=== PATIENT | male | born 1960 | race American Indian/Alaskan Native ===

== ENCOUNTER 2025-03-15 19:33 | Inpatient (IN) | payer MEDICAID, SELFPAY ==
[2025-03-15 19:33] VITALS: BP 181/115; PULSE 62; RESP 25; TEMP 37.1; O2SAT 93
--- NOTE | 2025-03-15 19:36 | EKG_ITS ---
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: : 1960 Requested By: Alex Zhu Order Number: [id number] Reading MD: Alex Zhu Measurements Intervals [place] Rate: 63 P: MS: QRS: 25 QRSD: 87 T: 4 QT: 420 QTc: 431 Interpretive Statements UNCERTAIN IRREGULAR RHYTHM ELECTRONIC VENTRICULAR PACEMAKER -- CONTOUR ANALYSIS BASED ON INTRINSIC RHYTHM POSSIBLE RIGHT VENTRICULAR CONDUCTION DELAY [RSR (QR) IN V1/V2] ANTEROSEPTAL MYOCARDIAL INFARCTION , OF INDETERMINATE AGE [40+ ms Q WAVE IN V1-V4] Compared to ECG 01/23/2021 11:46:02 Myocardial infarct finding now present Atrial fibrillation no longer present T-wave abnormality no longer present Prolonged QT interval no longer present /store/S0/[id number].pdf
--- NOTE | 2025-03-15 19:39 | XR_ITS ---
EXAMINATION: AP chest single view TECHNIQUE: AP portable upright chest single view Date and time: March 15, 2025, 194 hours, comparison January 23, 2021 INDICATIONS: Shortness of breath today. FINDINGS: Mild to moderate CHF Moderate enlargement cardiac contour Prominent vascular congestion including central vascular engorgement with perihilar edema Transvenous dual-chamber bipolar cardiac leads satisfactory position Moderate osteopenia IMPRESSION: Mild to moderate CHF
[2025-03-15 20:03] LABS: Lactate (Lactic Acid) 3.0 mMol/L (0.4-2.0)
[2025-03-15 20:29] LABS: Basophils # (Auto) 0.0 Thou/mm3 (0.0-0.2); Basophils % (Auto) 1 % (0-2.5); Eosinophils # (Auto) 0.1 Thou/mm3 (0.0-0.5); Eosinophils % (Auto) 1 % (0-10); Hematocrit 33.6 % (41.0-53.0); Hemoglobin 11.3 g/dL (13.5-16.0); Immature Granulocytes Auto 0.02 Thou/mm3 (0.00-0.00); Lymphocytes # (Auto) 1.2 Thou/mm3 (1.0-4.8); Lymphocytes % (Auto) 18 % (10-50); Mean Corpuscular HGB Conc 33.6 g/dl (31.0-37.0); Mean Corpuscular Hemoglobin 31.7 pg (25.0-35.0); Mean Corpuscular Volume 94 fL (80-100); Monocytes # (Auto) 0.9 Thou/mm3 (0.0-0.8); Monocytes % (Auto) 14 % (0-12); Neutrophils # (Auto) 4.2 Thou/mm3 (1.8-7.7); Neutrophils % (Auto) 66 % (37-80); Nucleated Red Blood Cell # 0.00 Thou/mm3 (0.00-0.00); Nucleated Red Blood Cell % 0 /100 WBC (0); Platelet Count 173 Thou/mm3 (140-440); RDW Standard Deviation 46.4 fL (35.1-43.9); Red Blood Count 3.56 Miln/mm3 (4.50-5.90); White Blood Count 6.5 Thou/mm3 (3.8-10.6)
[2025-03-15 20:34] LABS: Anion Gap 11 (7-16); B-Type Natriuretic Peptide 569 pg/mL (0-100); BUN/Creatinine Ratio 9 Ratio (12-20); Blood Urea Nitrogen 10 mg/dL (9-23); Calcium 9.2 mg/dL (8.3-10.6); Carbon Dioxide 20.7 mMol/L (20.0-31.0); Chloride 92 mMol/L (98-107); Creatinine (Component) 1.1 mg/dL (0.6-1.3); Glucose 101 mg/dL (74-106); Lipase 29 U/L (12-53); Osmolality,Calculated 248 (275-295); Potassium 4.6 mMol/L (3.4-5.1); Sodium 124 mMol/L (136-145); eGFR > 60 See Note
[2025-03-15 20:39] LABS: Troponin I 0.079 ng/mL (0.0-0.045)
[2025-03-15] MEDS: ALBUTEROL/IPRATROPIUM (Duoneb) RT SOL 3 ML NEBU INH (20:51)
[2025-03-15 20:52] VITALS: PULSE 61; PULSE 64; RESP 20; RESP 24; RESP 95; O2SAT 100
[2025-03-15 21:23] VITALS: BP 156/76; PULSE 68
[2025-03-15] MEDS: FUROSEMIDE INJ 10 MG/ML VIAL 2 ML 40 MG IM (21:23)
[2025-03-15 21:26] LABS: Collection Type, Urine Clean Catch
[2025-03-15 21:31] LABS: Bacteria,Urine 2+; Bilirubin,Urine Negative (Negative); Blood,Urine 1+ (Negative); Clarity,Urine Turbid (Clear/Hazy); Color,Urine Lt-Yellow (Lt Yel-Yel); Glucose, Urine Negative (Negative); Hyaline Casts,Urine < 1 /hpf (0-1); Ketones,Urine Negative (Negative); Leukocyte Esterase,Urine Positive (Negative); Nitrite,Urine Negative (Negative); PH,Urine 6.0 (5.0-7.0); Protein,Urine 2+ (Neg - Trace); RBC,Urine 6 /hpf (0-3); Specific Gravity,Urine 1.011 (1.001-1.035); Squamous Epithelial Cell,Urine 1 /hpf (0-5); Urobilinogen,Urine Negative mg/dL (0.0-1.0); WBC,Urine 118 /hpf (0-5)
[2025-03-15 23:01] LABS: Reflex Lactate? Y
--- NOTE | 2025-03-15 23:16 | EDNOTE_ITS ---
ED SOB =RME/HPI General Chief Complaint: Shortness of Breath/Dyspnea Stated Complaint: SHORTNESS OF BREATH Time Seen by Provider: 03/15/25 19:34 Source: patient, EMS and prescription eyeglass maker Arrival date/time: 03/15/25 19:33 Mode of arrival: EMS Limitations: language barrier RME / HPI RME / HPI Narrative: This patient is a morbidly obese 64-year-old male who is only minimal [place] speaking arrives to the ED today via EMS due to complaints of bilateral lower extremity swelling and shortness of breath concerns. Per EMS, patient has a history of CHF. Additional information was difficult to assess due to language barriers. It appears the patient may not be medication compliant with respect to his CHF concerns. Patient was hypertensive and mildly tachypneic at arrival. Patient was satting at 93% on room air. Related Data Allergies Allergy/AdvReac Type Severity Reaction Status Date / Time No Known Drug Allergies Allergy Verified 01/23/21 10:49 Review of Systems Review of Systems Systems Reviewed: All systems reviewed, normal except as documented Past Medical History Past Medical History NEUROLOGIC: Negative Neurological Disorders CARDIAC: Positive Cardiac Disorders, Atrial Fibrillation, Congestive Heart Failure, Cellulitis and Hypertension RESPIRATORY: Negative Chronic Obstructive Pulmonary Disease (COPD) or Asthma GASTROINTESTINAL: Negative Gastrointestinal Disorders or Colorectal Cancer GENITOURINARY: Negative Genitourinary Disorders, Renal Disease or Prostate Cancer REPRODUCTIVE: Negative Breast Cancer or Testicular Cancer MUSCULOSKELETAL: Negative Musculoskeletal Disorders, Bone Cancer or Carpal Tunnel Syndrome ENT: Negative Cataracts ENDOCRINE: Positive Endocrine Disorders and Diabetes Mellitus Type 2; Negative Diabetes Mellitus Type 1 HEMATOLOGIC: Negative Blood Disorders PSYCHO/SOCIAL: Negative Depression or Anxiety OTHER HISTORY: Negative Autoimmune Disease, Blood Transfusions, Blood Transfusion Reaction, Anesthesia Reactions, Organ Transplant, Chemotherapy, Radiation Therapy, Hyperbaric Therapy, Breast Cancer, Cervical Cancer, Colorectal Cancer, Lung Cancer, Ovarian Cancer, Prostate Cancer or Testicular Cancer Surgical History SURGICAL: Negative Cardiac Surgery, Endocrine Surgery, Thyroidectomy, Ear Surgery, Tympanostomy Tube, Eye Surgery, Nose Surgery, Oral Surgery, Tonsillectomy, Adenoidectomy, Cochlear Implant, Corneal Transplant, Throat Surgery, Abdominal Surgery, Tracheostomy, Nephrectomy, Joint Replacement, Amputation, Open Reduction Internal Fixation, Arthroscopy, Neurologic Surgery, Brain Shunt, Vasectomy or Organ Transplant Social History SMOKING STATUS: Never smoker SECOND HAND EXPOSURE: Yes ED Exam General Limitations: Present language barrier General appearance: Present in distress (Patient was admitted to monitor status due to shortness of breath concerns. Patient appears to be in poor overall health.) Head Head exam: Present atraumatic Eye Eye exam: Present PERRL, EOMI and other (Patient reveals mild proptosis bilaterally.) ENT ENT exam: Present normal exam, normal oropharynx and mucous membranes moist Neck Neck exam: Present normal inspection, full ROM and trachea midline Chest Chest inspection: Present normal inspection and symmetric chest wall rise Respiratory Respiratory exam: Present other (Patient displayed some mild respiratory distress at time of evaluation. Mild accessory muscle use.) Cardiovascular Cardiovascular exam: Present regular rate, normal rhythm and normal heart sounds Abdominal Exam Abdominal exam: Present soft and normal bowel sounds Extremities Exam Extremities exam: Present normal inspection and full ROM Back Exam Back exam: Present normal inspection and full ROM Neurological Exam Neurological exam: Present alert, oriented X3 and CN II-XII intact Psychiatric Psychiatric exam: Present normal affect and normal mood Skin Skin exam: Present warm, dry, intact and normal color Course Quality Measures none Orders Category Date Time Status COVID-19 Screening Questionnaire NOW Care 03/15/25 23:32 Ordered Decision to Admit X1 Care 03/15/25 23:32 Ordered Fluid restriction QDAY Care 03/15/25 23:29 Active Vincent [Urinary Catheter] QS Care 03/15/25 23:30 Active IV [Insert IV] NOW Care 03/15/25 19:36 Active Strict Intake and Output Routine Care 03/15/25 23:30 Ordered EKG (ED Only) Stat Exams 03/15/25 19:36 Draft XR chest 1V portable Stat Exams 03/15/25 19:39 Completed BMP [Basic Metabolic Panel] Stat Lab 03/15/25 19:56 Completed BNP [B-Type Natriuretic Peptide] Stat Lab 03/15/25 19:56 Completed Blood Culture (Lab) Stat Lab 03/15/25 22:22 Received CBC Stat Lab 03/15/25 19:56 Completed COVID-19 Antigen (In-House) Stat Lab 03/15/25 23:26 Ordered Drug Screen,Urine Stat Lab 03/15/25 23:27 Ordered FLU A&B [Influenza A & B Rapid Panel] Stat Lab 03/15/25 23:26 Ordered Lactate (Lactic Acid) Stat Lab 03/15/25 19:56 Completed Lactic Acid, 3 HR Stat Lab 03/15/25 23:21 Completed Lipase Stat Lab 03/15/25 19:56 Completed Troponin I Stat Lab 03/15/25 19:56 Completed UA [Urinalysis] Stat Lab 03/15/25 21:20 Completed Albuterol/Ipratr Rt Fatou [Duoneb Rt Fatou] Med 03/15/25 19:35 Discontinued 3 ml INH X1 ONE Furosemide [Lasix Inj] Med 03/15/25 20:17 Discontinued 40 mg IM X1 ONE Sodium Chloride 0.9% 1000 ml [Ns] 1,000 ml Med 03/15/25 20:17 Discontinued IV 150 mls/hr cefTRIAXone/D5w 1gm IV premix [Rocephin/D5w 1gm IV Med 03/15/25 21:37 Discontinued premix] 1 gm in 50 ml IV X1 dexAMETHasone INJ [Decadron Inj] Med 03/15/25 19:35 Discontinued 10 mg IM X1 ONE levoFLOXacin/D5W 750MG IVPB [Levaquin Ivpb] Med 03/15/25 21:36 Discontinued 750 mg in 150 ml IV X1 As noted above Reevaluation(s) Reevaluation #1: Dr. Guillen Time: 22:00 Vital Signs Vital signs: Vital Signs Temperature 98.8 F 03/15/25 19:33 Pulse Rate 62 03/15/25 19:33 Respiratory Rate 25 H 03/15/25 19:33 Blood Pressure 181/115 H 03/15/25 19:33 Pulse Oximetry (%) 93 L 03/15/25 19:33 As noted above Shortness of Breath / Dyspnea MDM Narrative MDM Narrative:: All studies performed the ED were evaluated by me personally. Serum studies revealed an elevated lactic acid, anemia, hyponatremia, significant CHF exacerbation as well as trending upward of elevated troponins. UTI was significant. Antibiotics had been started in the ED. Chest x-ray revealed significant cardiomegaly and confirmation of congestive heart failure concerns. Patient care be transferred to Dr. Ontiveros for discussions with hospitalist once available. Patient data External records reviewed:: [facility] previous records Clinical information provided by:: patient and EMS Social determinants that could affect healthcare access:: none Patient has the following chronic illnesses:: Congestive heart failure How is presenting disease/condition affected by chronic disease/condition?: caused by Evaluation data The following diagnostics were reviewed and interpreted by me:: lab results, radiology exam(s) and EKG tracing(s) Lab and/or radiology exams considered but not ordered:: None Interpretation Summary: Just serum laboratories revealed an elevated lactic acid, anemia, significant urinary tract infection concerns, hyponatremia, acute CHF exacerbation as well as elevated troponins. Chest x-ray revealed confirmation of a congestive heart failure issue. Medications / Prescriptions Medications or Prescriptions considered but not ordered:: None Medication administrations:: Medication Administration History Discontinued Medications Albuterol/Ipratropium (Albuterol/Ipratropium (Duoneb) Rt Fatou 3 Ml Nebu) 3 ml INH X1 ONE Stop: 03/15/25 19:36 Last Admin: 03/15/25 20:51 Dose: 3 ml Documented By: [email or web address] Dexamethasone Sodium Phosphate (Dexamethasone Sod Phos Inj 10 Mg/Ml Vial) 10 mg IM X1 ONE Stop: 03/15/25 19:36 Last Admin: 03/15/25 19:48 Dose: 10 mg Documented By: CVL Furosemide (Furosemide Inj 10 Mg/Ml Vial 2 Ml) 40 mg IM X1 ONE Stop: 03/15/25 20:18 Last Admin: 03/15/25 21:23 Dose: 40 mg Documented By: EB Comments: admin IV per provider ordered wrong give IV now 20g right hand Sodium Chloride (Ns) 1,000 mls @ 150 mls/hr IV .Q6H40M ONE Stop: 03/16/25 02:56 Last Admin: 03/15/25 21:02 Dose: 150 mls/hr Documented By: EB Ceftriaxone Sodium/Dextrose (Rocephin/D5w 1gm Iv Premix) 1 gm in 50 mls @ 100 mls/hr IV X1 ONE Stop: 03/15/25 22:06 Levofloxacin/Dextrose (Levaquin Ivpb) 750 mg in 150 mls @ 100 mls/hr IV X1 ONE Stop: 03/15/25 23:05 As noted above Consultations Consultation(s) initiated? (list below): Yes Consultation #1 (Physician, Specialty, Details): Dr. Guillen Time: 22:00 Diagnosis Shortness of Breath Differential Diagnosis: acute exacerbation of chronic obstructive airways disease, congestive heart failure and community acquired pneumonia Most likely diagnosis given after review of the tests above:: Acute CHF exacerbation make sure he has follow-up, urosepsis Admission Indicated Admission indicated?: indicated Explain why admission is indicated or not indicated:: Patient will require admission to address his significant CHF concerns as well as management of his significant urinary tract issues. Admission Request Was there a request for admission?: Yes Admission Attestation Admission request attestation: Discussed case with [] from Hospitalist service regarding admission. Discussed patients ED course, exam findings, labs, and radiology results. The Hospitalist [agrees,declines] to accept the patient for admission. Disposition Plan Disposition Plan: Admit Discharge Plan Plan Patient Disposition: Admit Acute Care w/in Hospital Prescriptions/Referrals Referrals: No Primary/Family,Physician [Primary Care Provider] - In 1 week Problem List Clinical Impression: Acute exacerbation of CHF (congestive heart failure), Acute UTI, Acute hyponatremia, Elevated troponin Patient/Caregiver Discharge Instructions Print Language: [place]alese Stand Alone Forms: Angélica Award Info., Patient Portal Info Letter Attestation Attestation I took over the care from previous provider at _11PM_ on _03/15/25_.? See previous notes for complete H & P and ED course.?? I reviewed all diagnostic test results. I discussed the case with our hospitalist.? About the presentation and exam and diagnostics and treatments here.? And need of further care in the hospital.? Will accept the patient. Nehemiah Ontiveros MD
[2025-03-15 23:21] LABS: Lactic Acid, 3 HR 1.9 mMol/L (0.4-2.0)
[2025-03-15] MEDS: THIAMINE INJ 100 MG/ML VIAL 2 ML 500 MG IVP (23:48)
[2025-03-15 23:49] LABS: Amphetamine/Methamp Scrn,U Negative (Negative); Barbiturate Screen,Urine Negative (Negative); Benzodiazepines Screen,Urine Negative (Negative); Benzoylecgonine Screen, Ur Negative (Negative); Fentanyl Screen,Urine Negative (Negative); Opiate Screen,Urine Negative (Negative); THC Screen,Urine Negative (Negative)
[2025-03-15 23:54] LABS: COVID-19 Antigen (In-House) Negative (Negative); Influenza A Ag Negative; Influenza B Ag Negative
[2025-03-15] MEDS: cefTRIAXone/D5w 1gm IV premix 1 GM/50 ML BAG IV (23:54)
[2025-03-16] VITALS (23 sets, daily range): BP systolic 121–172; BP diastolic 58–91; PULSE 60–90; RESP 12–28; TEMP 35.9–37.2; O2SAT 92–100; BMI 42.0
--- NOTE | 2025-03-16 00:18 | ECHO_ITS ---
Patient Info Name: Sarmad Perales Age: 64 years : 1960 Gender: Male Ht: 165 cm Wt: 189 kg BSA: 3.08 m2 BP: 121 / 58 mmHg Exam Date: 03/16/2025 2:39 PM Admit Date: 03/15/2025 Site: [facility] Patient Status: I Technical Quality: Poor Exam Type: CA echo doppler complete Reason for Poor Study: body habitus Telephone Messenger: Ashley Gonzalez Ordering Physician: Isaias Ceja Study Info Indications Heart failure - Primary Location: [id number] Left Ventricular Outflow Tract Name Value Normal LVOT 2D LVOT Diameter 2.0 cm LVOT Doppler LVOT Peak Velocity 76 cm/s LVOT Mean Gradient 1 mmHg LVOT VTI 14 cm LVOT VTI/AV VTI Ratio 0.6 LVOT Stroke Volume 45 ml Pulmonic Valve Name Value Normal PV Doppler PV Peak Velocity 98 cm/s Mitral Valve Name Value Normal MV Doppler MV Mean Gradient 2 mmHg MV Decel [place] 477 cm/s2 MV PHT 38 ms MV Area (PHT) 5.8 cm2 4.0-5.0 MV Area (Cont Eq VTI) 1.4 cm2 MV Diastolic Function MV E Peak Velocity 62 cm/s MV A Peak Velocity 34 cm/s MV E/A 1.8 MV Annular TDI MV Lateral e' Velocity 7.9 cm/s MV E/e' (Lateral) 7.8 Tricuspid Valve Name Value Normal TV Regurgitation Doppler TR Peak Velocity 246 cm/s Estimated PAP/RSVP RA Pressure 8 mmHg <=5 PA Systolic Pressure 32 mmHg <36 RV Systolic Pressure 32 mmHg <36 Aortic Valve Name Value Normal AV 2D/MM AV Cusp Sep (MM) 1.7 cm AV Doppler AV Peak Velocity 142 cm/s AV Mean Gradient 3 mmHg AV VTI 25 cm AV Area (Cont Eq VTI) 1.8 cm2 >=3.0 AV Area (Cont Eq Yon) 1.7 cm2 AV DI (Yon) 0.54 AV Regurgitation 2D LVOT Area 3.1 cm2 Ventricles Name Value Normal LV Dimensions 2D/MM IVS Diastolic Thickness (2D) 1.0 cm 0.6-1.0 LVID Diastole (2D) 5.9 cm 4.2-5.8 LVIW Diastolic Thickness (2D) 1.0 cm 0.6-1.0 LVID Systole (2D) 4.3 cm 2.5-4.0 LVOT Diameter 2.0 cm LV Mass (2D Cubed) 239.93 g 88.00-224.00 LV Mass Index (2D Cubed) 78 g/m2 49-115 Relative Wall Thickness (2D) 0.34 <=0.42 IVS/LVIW Diastolic Thickness (2D) 1.00 0.00-1.50 LV Fractional Shortening/Ejection Fraction 2D/MM LV Fractional Shortening (2D) 27 % 25-43 LV EF (2D Teichholz) 52 % LV Diastolic Volume (4C MOD) 170 ml LV EF (4C MOD) 25 % LV Diastolic Length (4C) 8.4 cm LV Systolic Length (4C) 8.1 cm LV Stroke Volume (4C MOD) 42 ml Atria Name Value Normal LA Dimensions LA Volume (4C A-L) 207 ml LA Volume (BP A-L) 180 ml Left Ventricle Left ventricular chamber dimension is mildly enlarged. Left ventricular systolic function is mildly reduced with visually estimated ejection fraction of 45-50%. There is normal geometry noted in the left ventricle. Left ventricular segmental wall motion is normal. There is normal diastolic function in the left ventricle. Right Ventricle Right ventricular chamber dimension is mildly enlarged. Right ventricular systolic function is normal. Left Atrium Left atrial chamber dimension is severely enlarged. Right Atrium Right atrial chamber dimension is severely enlarged. Aortic Valve The aortic valve is trileaflet. There is mild aortic valve sclerosis. There is no aortic valve stenosis with a peak velocity of 142 cm/s, mean gradient of 3 mmHg, and aortic valve area of 1.8 cm2. There is no aortic valve regurgitation. Pulmonic Valve The pulmonic valve is normal. There is no pulmonic valve stenosis. There is no pulmonic regurgitation. Mitral Valve The mitral valve has normal leaflets. There is no mitral valve stenosis. There is mild mitral valve regurgitation. Tricuspid Valve The tricuspid valve leaflets are normal. There is no tricuspid valve stenosis. There is mild tricuspid valve regurgitation. No pulmonary hypertension, estimated pulmonary arterial systolic pressure is 32 mmHg and systemic blood pressure of 121 mmHg in systole. Pericardium/Pleural The pericardium appears normal. There is no pericardial effusion. No pleural effusion visualized. Inferior Vena Cava Normal inferior vena cava with >50% collapse upon inspiration consistent with normal right atrial pressure, 8 mmHg. Aorta The aortic measurements are indexed to age and body surface area. The aortic root at the sinus of Valsalva is not well visualized. The prox ascending aorta is not well visualized. Summary 1. Overall poor quality images and suboptimal study. 2. Left ventricle size is mildly enlarged and systolic function is mildly reduced. Estimated ejection fraction is 45-50%. There is stage 1 diastolic dysfunction. 3. Right ventricle chamber size is mildly enlarged and systolic function is normal. Estimated RVSP is 32 mmHg with RAP 8. 4. There is mild mitral and tricuspid valve regurgitation. Mild AV sclerosis without stenosis. 5. The left atrium is severely enlarged. The right atrium is severely enlarged. 6. Dilated cardiomyopathy. Report Signatures Finalized by Silver Abad on 03/17/2025 01:09 AM
--- NOTE | 2025-03-16 00:20 | ESHP_ITS ---
<Statement entered by Isaias Ceja MD - 03/18/25 19:42> Patient is poor historian. Talked to the niece recreation activities coordinator and got some information from her. A 64-year-old male with significant past medical history of hypertension, hyperlipidemia, atrial fibrillation on anticoagulation, chronic alcohol disorder, third-degree AV block status post pacemaker placement in [facility], history of stroke at that time. Per niece, patient called her reporting that he is not able to get out of the bed since 2 days which she went to his home and called ambulance and brought him to the hospital. Reported that he is having pedal edema since the discharge from [facility]. Does not follow-up with any roll on worker. Unsure if he is compliant with his medications. Vitals at the time of admission are significant for blood pressure 181/115 mmHg. Later in the ED, patient noted to have coffee-ground emesis for which CPAP was held and stopped anticoagulation. Labs are significant for sodium 124, chloride 92, osmolality 248, lactate 3, troponin 0.079. EKG showed paced rhythm. Patient is given dexamethasone, Lasix in the ED. On examining, patient noted to have confabulation for which 500 mg of thiamine IV is given in view of suspected Wernicke's encephalopathy in the light of extensive alcohol intake disorder. Admitted to the floors in view of acute decompensated heart failure, NSTEMI type II, upper GI bleed likely due to gastritis. Echocardiogram was ordered and consulted roll on worker. Started on IV diuretics. Strict I&O's, salt and fluid restriction. I have personally seen and examined the patient, agree with residents assessment and plan Patient plan of care was discussed with the attending physician, Dr. Mindy Ceja, PGY2 Documentation for date of: 03/16/25 HPI History of Present Illness History of present illness: HPI: 64-year-old male with a past medical history of hypertension, hyperlipidemia, A- fib, 3rd degree block status post pacemaker placement at [facility] presented to the ED in the evening of 03/15/2025 with chief complaint of shortness of breath and weakness. Patient is a poor historian. He mentioned that he had difficulty walking for 3 months duration. He mentioned that he was unable to come to the hospital for this issue due to not having a ride. He experienced 2 falls within the past few days and today he called his niece who drove him to the hospital. The patient mentioned that he takes several different medications for 4 hypertension but could not name any of them. He mentioned that he ran out of his medications and has not taken them for several days to weeks. He has not seen a roll on worker or primary care provider recently. He was found to have bilateral lower extremity pitting edema and mild to moderate CHF indicated on chest x-ray with elevated BNP. He was also found to have elevated troponins and EKG was negative for any acute ST segment changes. Patient had 1 episode of brown-colored emesis in the ED. Patient was admitted for CHF exacerbation, NSTEMI type II, and possible GI bleed. ED Course: * Significant vitals on arrival: BP 181/115, respiratory rate 25. * Significant labs: Sodium 124, chloride 92, calculated osmolality 248, lactic acid 3.0 down trended to 1.9, troponin 0.079, BNP 569 * Imaging: EKG showed electronic ventricular pacemaker with no acute ST segment changes, rate 63, QTc 431 * Urine: 2+ protein, 1+ blood, 6 RBC, 1.18 WBC, 2+ bacteria, leukocyte esterase positive * ED intervention: Patient received 10 mg dexamethasone, DuoNeb treatment, 40 mg IM Lasix, 500 mg thiamine,1 g of ceftriaxone, and levofloxacin 750 mg. History: * Past medical history: As above in HPI * Surgical history: Left shoulder unspecified surgery * Social history: Lives in a usp, denies alcohol tobacco or illicit drugs. Allergies: * No known drug allergies Home Medications: (Pending Med Rec) * Furosemide 40 mg daily * Spironolactone 25 mg half tablet daily * Amlodipine 10 mg daily * Apixaban 5 mg daily * Atorvastatin 80 mg daily CODE STATUS: Full code Review of Systems Review of Systems Narrative Review of Systems: Review of Systems: * General: Admits to generalized weakness, difficulty ambulating. * HEENT: Denies headache, congestion, or sore throat. * Cardiac: Denies chest pain or palpitations. * Pulmonary: Admits to shortness of breath. * GI: Denies nausea, vomiting, diarrhea, constipation, melena, or hematochezia. * : Denies dysuria, hematuria, frequency, or urgency. * MSK: Denies pain in the extremities, joints, or myalgias. * Neuro: Denies weakness, numbness, vision changes, or speech difficulty. Exam Vital Signs Temp Pulse Resp BP Pulse Ox O2 Del Method 97.6 F 90 22 H 160/80 H 94 L Room Air 03/16/25 00:00 03/16/25 00:00 03/16/25 00:00 03/16/25 00:00 03/16/25 00:00 03/16/25 00:00 Narrative Exam General: Obese man. Awake and in no acute distress. Conversational and non- toxic appearing. Neurologic: GCS 15. Alert and oriented x3, no gross neurological deficit, and patient able to move all 4 extremities. HEENT: Normocephalic, atraumatic, mucous membranes moist. Pupils reactive to light. Heart: Regular rate and rhythm, normal S1 and S2, no murmurs. Lungs: Clear to auscultation bilaterally with no wheezing or crackles. Abdomen: Obese, distended, nontender, positive bowel sounds. No guarding or rebound tenderness. Extremities: Bilateral lower extremity 2+ pitting edema. Flaking skin in the lower extremities bilaterally. Vitiligo at the fingertips bilaterally. Skin: Warm. Dry. No rash or ecchymoses. Results: Labs 03/18/25 05:35 03/18/25 05:35 Labs: Short CBC 03/15/25 Range/Units 19:56 WBC 6.5 (3.8-10.6) Thou/mm3 Hgb 11.3 L (13.5-16.0) g/dL Hct 33.6 L (41.0-53.0) % Plt Count 173 (140-440) Thou/mm3 BMP 03/15/25 19:56 Sodium 124 L Potassium 4.6 Chloride 92 L Carbon Dioxide 20.7 BUN 10 Creatinine 1.1 Glucose 101 Calcium 9.2 Cardiac Enzymes 03/15/25 Range/Units 19:56 Troponin I 0.079 H* (0.0-0.045) ng/mL Urine 03/15/25 Range/Units 21:20 Urine Color Lt-Yellow (Lt Yel-Yel) Urine Clarity Turbid A (Clear/Hazy) Urine pH 6.0 (5.0-7.0) Ur Specific [place] 1.011 (1.001-1.035) Urine Protein 2+ A (Neg - Trace) Urine Glucose (UA) Negative (Negative) Quality Measures Quality Measures VTE prophylaxis Medications Home Medications and Allergies Home Medications ?Medication ?Instructions ?Recorded ?Confirmed ?Type apixaban 5 mg tablet (Eliquis) 5 mg PO QDAY 03/16/25 1 05/17/24 History atorvastatin 80 mg tablet 80 mg PO QDAY 03/16/2503/16 History furosemide 40 mg tablet 40 mg PO QDAY 03/16/2503/16 History spironolactone 25 mg tablet 12.5 mg PO QDAY 03/16/25 1 05/17/24 History Allergies Allergy/AdvReac Type Severity Reaction Status Date / Time No Known Drug Allergies Allergy Verified 01/23/21 10:49 Visit Medications Acetaminophen (Acetaminophen 325 Mg Tablet) 650 mg PO Q6H PRN PRN Reason: Fever >100.4 Stop: 04/14/25 23:45 Aspirin (Aspirin Ec 81 Mg Tabec) 81 mg PO DAILY [facility] Stop: 04/15/25 08:59 Enoxaparin Sodium (Enoxaparin Sod Inj 40 Mg/0.4 Ml Syringe) 40 mg SC QDAY [facility] Stop: 03/30/25 08:59 Furosemide (Furosemide Inj 10 Mg/Ml Vial 2 Ml) 40 mg IVP BID [facility] Stop: 04/15/25 08:59 Ceftriaxone Sodium/Dextrose (Rocephin/D5w 1gm Iv Premix) 1 gm in 50 mls @ 100 mls/hr IV QDAY [facility] Stop: 03/22/25 23:45 Spironolactone (Spironolactone 25 Mg Tablet) 25 mg PO QDAY [facility] Stop: 04/15/25 08:59 Thiamine HCl (Thiamine 100 Mg Tablet) 100 mg PO QDAY [facility] Stop: 04/15/25 08:59 Discontinued Medications Albuterol/Ipratropium (Albuterol/Ipratropium (Duoneb) Rt Fatou 3 Ml Nebu) 3 ml INH X1 ONE Stop: 03/15/25 19:36 Last Admin: 03/15/25 20:51 Dose: 3 ml Dexamethasone Sodium Phosphate (Dexamethasone Sod Phos Inj 10 Mg/Ml Vial) 10 mg IM X1 ONE Stop: 03/15/25 19:36 Last Admin: 03/15/25 19:48 Dose: 10 mg Furosemide (Furosemide Inj 10 Mg/Ml Vial 2 Ml) 40 mg IM X1 ONE Stop: 03/15/25 20:18 Last Admin: 03/15/25 21:23 Dose: 40 mg Sodium Chloride (Ns) 1,000 mls @ 150 mls/hr IV .[id number] ONE Stop: 03/16/25 02:56 Last Admin: 03/15/25 21:02 Dose: 150 mls/hr Ceftriaxone Sodium/Dextrose (Rocephin/D5w 1gm Iv Premix) 1 gm in 50 mls @ 100 mls/hr IV X1 ONE Stop: 03/15/25 22:06 Levofloxacin/Dextrose (Levaquin Ivpb) 750 mg in 150 mls @ 100 mls/hr IV X1 ONE Stop: 03/15/25 23:05 Last Admin: 03/16/25 00:00 Dose: Not Given Ceftriaxone Sodium/Dextrose (Rocephin/D5w 1gm Iv Premix) 1 gm in 50 mls @ 100 mls/hr IV X1 ONE Stop: 03/16/25 00:14 Last Admin: 03/15/25 23:54 Dose: 100 mls/hr Thiamine HCl (Thiamine Inj 100 Mg/Ml Vial 2 Ml) 500 mg IVP X1 ONE Stop: 03/15/25 23:41 Last Admin: 03/15/25 23:48 Dose: 500 mg Assessment & Plan Plan Summary: 64-year-old male with a past medical history of hypertension, hyperlipidemia, A- fib status post pacemaker placement at [facility] presented to the ED in the evening of 03/15/2025 with chief complaint of shortness of breath and weakness. Patient is a poor historian. He was found to have bilateral lower extremity pitting edema and mild to moderate CHF indicated on chest x-ray with elevated BNP. He was also found to have elevated troponins and EKG was negative for any acute ST segment changes. Patient had 1 episode of brown-colored emesis in the ED. Patient was admitted for new onset CHF, NSTEMI type II, and possible upper GI bleed. #New onset CHF #Elevated BNP #Hyponatremia #Hypochloremia * Fluid overload is supported on physical exam findings of bilateral lower extremity pitting edema and lab findings of hyponatremia (124) and hypochloremia (92) * This is further supported by the fact the patient mentioned that he has not taken his medications recently due to running out of them * BNP 569 * Chest x-ray showed mild to moderate CHF * Patient has orthopnea on physical exam * Echo on 10/01/2020 showed EF 55% Plan: * Lasix 40 mg IV twice daily * Spironolactone 25 mg daily * Fluid restriction 1500 mL * Strict I's&O's * Oxygen support as needed * CPAP at bedtime * Echo ordered * Cardiology consulted * Trend sodium #Hypertensive emergency #NSTEMI Type II * Patient presented with a blood pressure 181/115 * Patient presented with a troponin of 0.079, down trended to 0.057 * EKG showed electronic ventricular pacemaker with a rate of 63 QTc 431, no acute ST segment changes * The fact that the patient's EKG was negative for acute ST segment changes may reinforce hypertension as the culprit to the elevated troponins more than an ischemic cause, which would qualify the patient for hypertensive emergency due to endorgan damage * However demand ischemia is also difficult to rule out given that the patient has lots of supporting evidence as above for being fluid overloaded Plan: * Aspirin 81 mg daily * Diuresis as above #Upper GI Bleed? #Acute Normocytic Anemia * Patient had 1 episode of brown-colored emesis in the ED * Patient presented with hemoglobin 11.3, hematocrit 33.6, MCV 94, has been anemic in the past, may be a chronic issue Plan: * Fecal occult blood ordered * Holding anticoagulation until this is confirmed negative, if positive then we will do workup for upper GI bleed * Transfuse if hemoglobin below 7 #Diabetes * Patient has had elevated A1c's in the past * Patient is a poor historian, unknown if he uses insulin at home Plan: * Repeat A1c #UTI * Patient presented with urine: 1+ blood, 6 RBC, WBC 118, bacteria 2+, leukocyte esterase positive Plan: * Ceftriaxone 1 g daily * Urine culture ordered * Blood culture ordered #Hyperlipidemia? * Lipid panel negative * Pending med rec, patient appears to be taking atorvastatin 80 mg daily Plan: * Consider restarting home medication #A-Fib Status Post Pacemaker Placement * Pending med rec * Patient takes Eliquis Plan: * Holding anticoagulation in the presence of suspected upper GI bleed * Awaiting FOBT test #Lactic Acidosis (Resolved) * Patient presented with a lactate of 3.0, downtrended to 1.9 * Consider CHF exacerbation on top of UTI and NSTEMI * Demand ischemia in the presence of CHF exacerbation likely led to global hypoperfusion leading to increased lactic acid #Morbid obesity Dietary counseling and exercise recommended Patient will benefit from bariatric surgery if deemed fit candidate Follow-up outpatient Hospital Maintenance: DVT ppx: Holding until confirmation of negative fecal occult blood after episode of brown emesis GI ppx: Pantoprazole 40 mg IV twice daily Diet: N.p.o. until FOBT confirmed IV lines: Peripheral IVs Vincent: In place Code status: Full code Dispo: Telemetry, diuresing for CHF exacerbation, troponins trended down, lactic acidosis resolved, echo ordered, cardiology consulted, trending sodium. Patient was seen and discussed with my attending physician Dr. Julieta MONTES DE OCA and my senior resident Dr Marcial MONTES DE OCA PGY-2. Bj Bella DO PGY-1. Attending Provider Attestation/Addendum After examination of the patient and review of the clinical data I feel that this patient needs admission to the hospital for further treatment/evaluation. Plan of care discussed with patient and is in agreement. I Dayana Guillen MD, attest that I was physically present for kimbrough portions of evaluation, and examined patient, labs and imagings and plan of care were discussed with IM residents team, and I agree with the findings and plans documented above.
--- NOTE | 2025-03-16 00:20 | PD.RESHP ---
Documentation for date of: 03/16/25 [facility] History of Present Illness History of present illness: HPI: 64-year-old male with a past medical history of hypertension, hyperlipidemia, A-fib, 3rd degree block status post pacemaker placement at [facility] presented to the ED in the evening of 03/15/2025 with chief complaint of shortness of breath and weakness. Patient is a poor historian. He mentioned that he had difficulty walking for 3 months duration. He mentioned that he was unable to come to the hospital for this issue due to not having a ride. He experienced 2 falls within the past few days and today he called his niece who drove him to the hospital. The patient mentioned that he takes several different medications for 4 hypertension but could not name any of them. He mentioned that he ran out of his medications and has not taken them for several days to weeks. He has not seen a health safety instructor or primary care provider recently. He was found to have bilateral lower extremity pitting edema and mild to moderate CHF indicated on chest x-ray with elevated BNP. He was also found to have elevated troponins and EKG was negative for any acute ST segment changes. Patient had 1 episode of brown-colored emesis in the ED. Patient was admitted for CHF exacerbation, NSTEMI type II, and possible GI bleed. ED Course: Significant vitals on arrival: BP 181/115, respiratory rate 25. Significant labs: Sodium 124, chloride 92, calculated osmolality 248, lactic acid 3.0 down trended to 1.9, troponin 0.079, BNP 569 Imaging: EKG showed electronic ventricular pacemaker with no acute ST segment changes, rate 63, QTc 431 Urine: 2+ protein, 1+ blood, 6 RBC, 1.18 WBC, 2+ bacteria, leukocyte esterase positive ED intervention: Patient received 10 mg dexamethasone, DuoNeb treatment, 40 mg IM Lasix, 500 mg thiamine,1 g of ceftriaxone, and levofloxacin 750 mg. History: Past medical history: As above in HPI Surgical history: Left shoulder unspecified surgery Social history: Lives in a ch[facility], denies alcohol tobacco or illicit drugs. Allergies: No known drug allergies Home Medications: (Pending Med Rec) Furosemide 40 mg daily Spironolactone 25 mg half tablet daily Amlodipine 10 mg daily Apixaban 5 mg daily Atorvastatin 80 mg daily CODE STATUS: Full code Review of Systems Review of Systems Narrative Review of Systems: Review of Systems: General: Admits to generalized weakness, difficulty ambulating. HEENT: Denies headache, congestion, or sore throat. Cardiac: Denies chest pain or palpitations. Pulmonary: Admits to shortness of breath. GI: Denies nausea, vomiting, diarrhea, constipation, melena, or hematochezia. : Denies dysuria, hematuria, frequency, or urgency. MSK: Denies pain in the extremities, joints, or myalgias. Neuro: Denies weakness, numbness, vision changes, or speech difficulty. Exam Vital Signs Temp Pulse Resp BP Pulse Ox O2 Del Method 97.6 F 90 22 H 160/80 H 94 L Room Air 03/16/25 00:00 03/16/25 00:00 03/16/25 00:00 03/16/25 00:00 03/16/25 00:00 03/16/25 00:00 Narrative Exam General: Obese man. Awake and in no acute distress. Conversational and non-toxic appearing. Neurologic: GCS 15. Alert and oriented x3, no gross neurological deficit, and patient able to move all 4 extremities. HEENT: Normocephalic, atraumatic, mucous membranes moist. Pupils reactive to light. Heart: Regular rate and rhythm, normal S1 and S2, no murmurs. Lungs: Clear to auscultation bilaterally with no wheezing or crackles. Abdomen: Obese, distended, nontender, positive bowel sounds. No guarding or rebound tenderness. Extremities: Bilateral lower extremity 2+ pitting edema. Flaking skin in the lower extremities bilaterally. Vitiligo at the fingertips bilaterally. Skin: Warm. Dry. No rash or ecchymoses. Results: Labs 03/18/25 05:35 03/18/25 05:35 Labs: Short CBC 03/15/25 Range/Units 19:56 WBC 6.5 (3.8-10.6) Thou/mm3 Hgb 11.3 L (13.5-16.0) g/dL Hct 33.6 L (41.0-53.0) % Plt Count 173 (140-440) Thou/mm3 BMP 03/15/25 19:56 Sodium 124 L Potassium 4.6 Chloride 92 L Carbon Dioxide 20.7 BUN 10 Creatinine 1.1 Glucose 101 Calcium 9.2 Cardiac Enzymes 03/15/25 Range/Units 19:56 Troponin I 0.079 H* (0.0-0.045) ng/mL Urine 03/15/25 Range/Units 21:20 Urine Color Lt-Yellow (Lt Yel-Yel) Urine Clarity Turbid A (Clear/Hazy) Urine pH 6.0 (5.0-7.0) Ur Specific [place] 1.011 (1.001-1.035) Urine Protein 2+ A (Neg - Trace) Urine Glucose (UA) Negative (Negative) Quality Measures Quality Measures VTE prophylaxis Medications Home Medications and Allergies Home Medications ?Medication ?Instructions ?Recorded ?Confirmed ?Type apixaban 5 mg tablet (Eliquis) 5 mg PO QDAY 03/16/25 03/16/25 History atorvastatin 80 mg tablet 80 mg PO QDAY 03/16/25 03/16/25 History furosemide 40 mg tablet 40 mg PO QDAY 03/16/25 03/16/25 History spironolactone 25 mg tablet 12.5 mg PO QDAY 03/16/25 03/16/25 History Allergies Allergy/AdvReac Type Severity Reaction Status Date / Time No Known Drug Allergies Allergy Verified 01/23/21 10:49 Visit Medications Acetaminophen (Acetaminophen 325 Mg Tablet) 650 mg PO Q6H PRN PRN Reason: Fever >100.4 Stop: 04/14/25 23:45 Aspirin (Aspirin Ec 81 Mg Tabec) 81 mg PO DAILY [facility] Stop: 04/15/25 08:59 Enoxaparin Sodium (Enoxaparin Sod Inj 40 Mg/0.4 Ml Syringe) 40 mg SC QDAY [facility] Stop: 03/30/25 08:59 Furosemide (Furosemide Inj 10 Mg/Ml Vial 2 Ml) 40 mg IVP BID [facility] Stop: 04/15/25 08:59 Ceftriaxone Sodium/Dextrose (Rocephin/D5w 1gm Iv Premix) 1 gm in 50 mls @ 100 mls/hr IV QDAY [facility] Stop: 03/22/25 23:45 Spironolactone (Spironolactone 25 Mg Tablet) 25 mg PO QDAY [facility] Stop: 04/15/25 08:59 Thiamine HCl (Thiamine 100 Mg Tablet) 100 mg PO QDAY [facility] Stop: 04/15/25 08:59 Discontinued Medications Albuterol/Ipratropium (Albuterol/Ipratropium (Duoneb) Rt Fatou 3 Ml Nebu) 3 ml INH X1 ONE Stop: 03/15/25 19:36 Last Admin: 03/15/25 20:51 Dose: 3 ml Dexamethasone Sodium Phosphate (Dexamethasone Sod Phos Inj 10 Mg/Ml Vial) 10 mg IM X1 ONE Stop: 03/15/25 19:36 Last Admin: 03/15/25 19:48 Dose: 10 mg Furosemide (Furosemide Inj 10 Mg/Ml Vial 2 Ml) 40 mg IM X1 ONE Stop: 03/15/25 20:18 Last Admin: 03/15/25 21:23 Dose: 40 mg Sodium Chloride (Ns) 1,000 mls @ 150 mls/hr IV .Q6H40M ONE Stop: 03/16/25 02:56 Last Admin: 03/15/25 21:02 Dose: 150 mls/hr Ceftriaxone Sodium/Dextrose (Rocephin/D5w 1gm Iv Premix) 1 gm in 50 mls @ 100 mls/hr IV X1 ONE Stop: 03/15/25 22:06 Levofloxacin/Dextrose (Levaquin Ivpb) 750 mg in 150 mls @ 100 mls/hr IV X1 ONE Stop: 03/15/25 23:05 Last Admin: 03/16/25 00:00 Dose: Not Given Ceftriaxone Sodium/Dextrose (Rocephin/D5w 1gm Iv Premix) 1 gm in 50 mls @ 100 mls/hr IV X1 ONE Stop: 03/16/25 00:14 Last Admin: 03/15/25 23:54 Dose: 100 mls/hr Thiamine HCl (Thiamine Inj 100 Mg/Ml Vial 2 Ml) 500 mg IVP X1 ONE Stop: 03/15/25 23:41 Last Admin: 03/15/25 23:48 Dose: 500 mg Assessment & Plan Plan Summary: 64-year-old male with a past medical history of hypertension, hyperlipidemia, A-fib status post pacemaker placement at [facility] presented to the ED in the evening of 03/15/2025 with chief complaint of shortness of breath and weakness. Patient is a poor historian. He was found to have bilateral lower extremity pitting edema and mild to moderate CHF indicated on chest x-ray with elevated BNP. He was also found to have elevated troponins and EKG was negative for any acute ST segment changes. Patient had 1 episode of brown-colored emesis in the ED. Patient was admitted for new onset CHF, NSTEMI type II, and possible upper GI bleed. #New onset CHF #Elevated BNP #Hyponatremia #Hypochloremia Fluid overload is supported on physical exam findings of bilateral lower extremity pitting edema and lab findings of hyponatremia (124) and hypochloremia (92) This is further supported by the fact the patient mentioned that he has not taken his medications recently due to running out of them BNP 569 Chest x-ray showed mild to moderate CHF Patient has orthopnea on physical exam Echo on 10/01/2020 showed EF 55% Plan: Lasix 40 mg IV twice daily Spironolactone 25 mg daily Fluid restriction 1500 mL Strict I's&O's Oxygen support as needed CPAP at bedtime Echo ordered Cardiology consulted Trend sodium #Hypertensive emergency #NSTEMI Type II Patient presented with a blood pressure 181/115 Patient presented with a troponin of 0.079, down trended to 0.057 EKG showed electronic ventricular pacemaker with a rate of 63 QTc 431, no acute ST segment changes The fact that the patient's EKG was negative for acute ST segment changes may reinforce hypertension as the culprit to the elevated troponins more than an ischemic cause, which would qualify the patient for hypertensive emergency due to endorgan damage However demand ischemia is also difficult to rule out given that the patient has lots of supporting evidence as above for being fluid overloaded Plan: Aspirin 81 mg daily Diuresis as above #Upper GI Bleed? #Acute Normocytic Anemia Patient had 1 episode of brown-colored emesis in the ED Patient presented with hemoglobin 11.3, hematocrit 33.6, MCV 94, has been anemic in the past, may be a chronic issue Plan: Fecal occult blood ordered Holding anticoagulation until this is confirmed negative, if positive then we will do workup for upper GI bleed Transfuse if hemoglobin below 7 #Diabetes Patient has had elevated A1c's in the past Patient is a poor historian, unknown if he uses insulin at home Plan: Repeat A1c #UTI Patient presented with urine: 1+ blood, 6 RBC, WBC 118, bacteria 2+, leukocyte esterase positive Plan: Ceftriaxone 1 g daily Urine culture ordered Blood culture ordered #Hyperlipidemia? Lipid panel negative Pending med rec, patient appears to be taking atorvastatin 80 mg daily Plan: Consider restarting home medication #A-Fib Status Post Pacemaker Placement Pending med rec Patient takes Eliquis Plan: Holding anticoagulation in the presence of suspected upper GI bleed Awaiting FOBT test #Lactic Acidosis (Resolved) Patient presented with a lactate of 3.0, downtrended to 1.9 Consider CHF exacerbation on top of UTI and NSTEMI Demand ischemia in the presence of CHF exacerbation likely led to global hypoperfusion leading to increased lactic acid #Morbid obesity Dietary counseling and exercise recommended Patient will benefit from bariatric surgery if deemed fit candidate Follow-up outpatient Hospital Maintenance: DVT ppx: Holding until confirmation of negative fecal occult blood after episode of brown emesis GI ppx: Pantoprazole 40 mg IV twice daily Diet: N.p.o. until FOBT confirmed IV lines: Peripheral IVs Vincent: In place Code status: Full code Dispo: Telemetry, diuresing for CHF exacerbation, troponins trended down, lactic acidosis resolved, echo ordered, cardiology consulted, trending sodium. Patient was seen and discussed with my attending physician Dr. Julieta MONTES DE OCA and my senior resident Dr Marcial MONTES DE OCA PGY-2. Bj Bella DO PGY-1. Attending Provider Attestation/Addendum After examination of the patient and review of the clinical data I feel that this patient needs admission to the hospital for further treatment/evaluation. Plan of care discussed with patient and is in agreement. I Dayana Guillen MD, attest that I was physically present for kimbrough portions of evaluation, and examined patient, labs and imagings and plan of care were discussed with IM residents team, and I agree with the findings and plans documented above.
[2025-03-16 01:39] LABS: Albumin, Serum 4.4 gm/dL (3.4-4.8); Anion Gap 14 (7-16); BUN/Creatinine Ratio 9 Ratio (12-20); Blood Urea Nitrogen 12 mg/dL (9-23); Calcium 9.1 mg/dL (8.3-10.6); Calcium (Corrected) 9.1 mg/dL (8.5-10.1); Carbon Dioxide 21.1 mMol/L (20.0-31.0); Cardiac Risk Estimate 1.9 RATIO (4.0-6.7); Chloride 92 mMol/L (98-107); Cholesterol 146 mg/dL (132-200); Creatinine (Component) 1.3 mg/dL (0.6-1.3); Glucose 135 mg/dL (74-106); HDL Cholesterol 78 mg/dL (40-60); LDL Cholesterol,Calculated 58 mg/dL (0-130); Osmolality,Calculated 256 (275-295); Phosphorous 4.0 mg/dL (2.4-5.1); Potassium 4.6 mMol/L (3.4-5.1); Sodium 127 mMol/L (136-145); Thyroid Stimulating Hormone 1.96 uIU/mL (0.55-4.78); Triglycerides 52 mg/dL (30-150); eGFR > 60 See Note
[2025-03-16 01:40] LABS: Troponin I 0.057 ng/mL (0.0-0.045)
--- NOTE | 2025-03-16 01:59 | XR_ITS ---
Examination: Abdomen sonogram, Limited Date and time of exam: 03/16/2025 9:07 a.m. CLINICAL HISTORY: Upper abdominal pain, upper GI bleed Technique: Real-time damon scale transabdominal sonographic images of the upper abdomen obtained. Findings: The technologist notes that the overall study showed somewhat suboptimal visualization of the anatomy due to excessive bowel gas and a morbidly obese patient. The gallbladder is well seen and normal as is the gallbladder wall. The common bile ducts are normal, common bile duct measures 0.41 cm portal vein is normal in size with normal directional color flow. The head and body of the pancreas appear all right. There is diffuse increased echogenicity in the liver consistent with fatty infiltration no ascites is noted. IMPRESSION: 1. Overall study is limited for reasons noted above. 2 the gallbladder and the common bile duct are well-seen and normal. 3. Diffuse fatty infiltration of the liver which appears moderately enlarged
[2025-03-16] MEDS: PANTOPRAZOLE/NS 80MG IV PREMIX 80 MG/100 ML BAG 400 MG IV (02:42)
[2025-03-16 04:59] LABS: Basophils # (Auto) 0.0 Thou/mm3 (0.0-0.2); Basophils % (Auto) 0 % (0-2.5); Eosinophils # (Auto) 0.0 Thou/mm3 (0.0-0.5); Eosinophils % (Auto) 1 % (0-10); Hematocrit 31.9 % (41.0-53.0); Hemoglobin 10.8 g/dL (13.5-16.0); Immature Granulocytes Auto 0.02 Thou/mm3 (0.00-0.00); Lymphocytes # (Auto) 0.3 Thou/mm3 (1.0-4.8); Lymphocytes % (Auto) 9 % (10-50); Mean Corpuscular HGB Conc 33.9 g/dl (31.0-37.0); Mean Corpuscular Hemoglobin 31.9 pg (25.0-35.0); Mean Corpuscular Volume 94 fL (80-100); Monocytes # (Auto) 0.1 Thou/mm3 (0.0-0.8); Monocytes % (Auto) 2 % (0-12); Neutrophils # (Auto) 3.2 Thou/mm3 (1.8-7.7); Neutrophils % (Auto) 88 % (37-80); Nucleated Red Blood Cell # 0.00 Thou/mm3 (0.00-0.00); Nucleated Red Blood Cell % 0 /100 WBC (0); Platelet Count 173 Thou/mm3 (140-440); RDW Standard Deviation 46.7 fL (35.1-43.9); Red Blood Count 3.39 Miln/mm3 (4.50-5.90); White Blood Count 3.6 Thou/mm3 (3.8-10.6)
[2025-03-16 05:17] LABS: Alanine Aminotransferase 24 U/L (10-49); Albumin, Serum 3.9 gm/dL (3.4-4.8); Albumin/Globulin Ratio 1.1 (1.2-2.2); Alkaline Phosphatase 79 U/L (46-116); Anion Gap 11 (7-16); Aspartate Amino Transferase 64 U/L (0-34); BUN/Creatinine Ratio 12 Ratio (12-20); Bilirubin,Total 0.8 mg/dL (0.3-1.2); Blood Urea Nitrogen 15 mg/dL (9-23); Calcium 8.6 mg/dL (8.3-10.6); Calcium (Corrected) 8.7 mg/dL (8.5-10.1); Carbon Dioxide 23.4 mMol/L (20.0-31.0); Cardiac Risk Estimate 1.9 RATIO (4.0-6.7); Chloride 94 mMol/L (98-107); Cholesterol 132 mg/dL (132-200); Creatinine (Component) 1.3 mg/dL (0.6-1.3); Globulin 3.6 gm/dL (2.3-3.5); Glucose 152 mg/dL (74-106); HDL Cholesterol 71 mg/dL (40-60); LDL Cholesterol,Calculated 54 mg/dL (0-130); Magnesium 1.6 mg/dL (1.6-2.6); Osmolality,Calculated 260 (275-295); Potassium 4.7 mMol/L (3.4-5.1); Sodium 128 mMol/L (136-145); Total Protein 7.5 gm/dL (5.7-8.2); Triglycerides 37 mg/dL (30-150); eGFR > 60 See Note
--- NOTE | 2025-03-16 07:10 | PC.NURSE ---
demiar to Pardeep FULLER
[2025-03-16] MEDS: FUROSEMIDE INJ 10 MG/ML 4ML VIAL 40 MG IVP (07:28)
[2025-03-16 07:57] LABS: Glucose Estimated Average 134 mg/dL (80-131); Hemoglobin A1C 6.3 % Hgb (4.8-6.0)
[2025-03-16] MEDS: FOLIC ACID 1 MG TABLET PO (09:12)
[2025-03-16] MEDS: ASPIRIN EC 81 MG TABEC PO (09:12)
[2025-03-16] MEDS: THIAMINE 100 MG TABLET PO (09:12)
[2025-03-16] MEDS: FUROSEMIDE INJ 10 MG/ML VIAL 2 ML 40 MG IVP ×3 (09:12→21:14)
[2025-03-16 09:16] LABS: Ammonia 15 uMol/L (11-32)
[2025-03-16 09:47] LABS: Phosphorous 5.2 mg/dL (2.4-5.1)
--- NOTE | 2025-03-16 09:48 | PD.RESPRO ---
Documentation for date of: 03/16/25 Subjective Subjective Interval history: Patient seen and examined at bedside; no acute events overnight. Patient states he has some epigastric pain. Exam Vital Signs Temp Pulse Resp BP Pulse Ox O2 Del Method O2 Flow Rate 98.7 F 60 20 123/60 97 High Flow Nasal Cannula 30 03/16/25 07:34 03/16/25 09:12 03/16/25 08:21 03/16/25 09:12 03/16/25 08:21 03/16/25 07:34 03/16/25 08:21 FiO2 40 03/16/25 08:21 Narrative Exam General: A/O x3, no acute distress, well-nourished, well-developed. Sammarinese-speaking only. Eyes: PERRL, EOMI. Anicteric, vision grossly intact. Ears: No ear pain, no ear discharge, Hearing grossly intact. Nose: No nasal discharge. Mouth/Throat: Moist mucous membranes, no redness, no lesions. Neck: Neck supple, non-tender, no cervical lymphadenopathy. Lungs: Clear IFEOMA to auscultation and percussion, No accessory muscle use. Cardio: Normal S1/S2, regular rhythm, no murmurs, no JVD or carotid bruits. Abdomen: Soft, distended non-tender, no palpable masses, peristalsis present, no guarding or rebound. Extremities: Symmetrical, no significant deformities, 2-3+ bilateral lower extremity pitting edema , non-tender, peripheral pulses present. Skin: No rashes, no lesions, warm to touch. Neuro: No focal neurological deficits. Psych: Cooperative, appropriate mood and effect. Objective Labs 03/16/25 04:33 03/16/25 04:33 Labs: Laboratory Results - last 24 hr 03/15/25 03/15/25 03/15/25 19:56 21:20 23:21 WBC 6.5 RBC 3.56 L Hgb 11.3 L Hct 33.6 L MCV 94 MCH 31.7 MCHC 33.6 RDW Std Deviation 46.4 H Plt Count 173 Neut % (Auto) 66 Lymph % (Auto) 18 [place] % (Auto) 14 H Eos % (Auto) 1 Baso % (Auto) 1 Neut # (Auto) 4.2 Lymph # (Auto) 1.2 [place] # (Auto) 0.9 H Eos # (Auto) 0.1 Baso # (Auto) 0.0 Immature Gran # (Auto) 0.02 H Absolute Nucleated RBC 0.00 Immature Gran % 0 Nucleated RBC % 0 Sodium 124 L Potassium 4.6 Chloride 92 L Carbon Dioxide 20.7 Anion Gap 11 BUN 10 Creatinine 1.1 Estim Creat Clear Calc Not Performed. eGFR > 60 BUN/Creatinine Ratio 9 L Glucose [address] Glu mg/dL Hemoglobin A1c Calculated Osmolality 248 L Lactic Acid 3.0 H 1.9 Calcium 9.2 Corrected Calcium Phosphorus Magnesium Total Bilirubin AST ALT Alkaline Phosphatase Ammonia Troponin I 0.079 H* B-Natriuretic Peptide 569 H* Total Protein Albumin Globulin Albumin/Globulin Ratio Triglycerides Cholesterol LDL Cholesterol, Calc HDL Cholesterol Cholesterol/HDL Ratio Lipase 29 TSH Ur Collection Type Clean Catch Urine Color Lt-Yellow Urine Clarity Turbid A Urine pH 6.0 Ur Specific [place] 1.011 Urine Protein 2+ A Urine Glucose (UA) Negative Urine Ketones Negative Urine Blood 1+ A Urine Nitrite Negative Urine Bilirubin Negative Urine Urobilinogen (Auto) Negative Ur Leukocyte Esterase Positive Urine RBC 6 H Urine WBC 118 H Ur Squamous Epith Cells 1 Urine Bacteria 2+ A Hyaline Casts < 1 Urine Opiates Screen Urine Fentanyl Screen Ur Barbiturates Screen U Amphetamin/Meth Scrn U Benzodiazepines Scrn U Cocaine Metab Screen U Marijuana (THC) Screen Influenza A (Rapid) Influenza B (Rapid) SARS-CoV-2 Ag (Rapid) 03/15/25 03/16/25 03/16/25 23:30 00:46 04:33 WBC 3.6 L D RBC 3.39 L Hgb 10.8 L Hct 31.9 L MCV 94 MCH 31.9 MCHC 33.9 RDW Std Deviation 46.7 H Plt Count 173 Neut % (Auto) 88 H Lymph % (Auto) 9 L [place] % (Auto) 2 Eos % (Auto) 1 Baso % (Auto) 0 Neut # (Auto) 3.2 Lymph # (Auto) 0.3 L [place] # (Auto) 0.1 Eos # (Auto) 0.0 Baso # (Auto) 0.0 Immature Gran # (Auto) 0.02 H Absolute Nucleated RBC 0.00 Immature Gran % 1 H Nucleated RBC % 0 Sodium 127 L 128 L Potassium 4.6 4.7 Chloride 92 L 94 L Carbon Dioxide 21.1 23.4 Anion Gap 14 11 BUN 12 15 Creatinine 1.3 1.3 Estim Creat Clear Calc Not Performed. Not Performed. eGFR > 60 > 60 BUN/Creatinine Ratio 9 L 12 Glucose [address] Glu mg/dL 134 H Hemoglobin A1c 6.3 H Calculated Osmolality 256 L 260 L Lactic Acid Calcium 9.1 8.6 Corrected Calcium 9.1 8.7 Phosphorus 4.0 Magnesium 1.6 Total Bilirubin 0.8 AST 64 H ALT 24 Alkaline Phosphatase 79 Ammonia Troponin I 0.057 H* B-Natriuretic Peptide Total Protein 7.5 Albumin 4.4 3.9 D Globulin 3.6 H Albumin/Globulin Ratio 1.1 L Triglycerides 52 37 Cholesterol 146 132 LDL Cholesterol, Calc 58 54 HDL Cholesterol 78 H 71 H Cholesterol/HDL Ratio 1.9 L 1.9 L Lipase TSH 1.96 Ur Collection Type Urine Color Urine Clarity Urine pH Ur Specific [place] Urine Protein Urine Glucose (UA) Urine Ketones Urine Blood Urine Nitrite Urine Bilirubin Urine Urobilinogen (Auto) Ur Leukocyte Esterase Urine RBC Urine WBC Ur Squamous Epith Cells Urine Bacteria Hyaline Casts Urine Opiates Screen Negative Urine Fentanyl Screen Negative Ur Barbiturates Screen Negative U Amphetamin/Meth Scrn Negative U Benzodiazepines Scrn Negative U Cocaine Metab Screen Negative U Marijuana (THC) Screen Negative Influenza A (Rapid) Negative Influenza B (Rapid) Negative SARS-CoV-2 Ag (Rapid) Negative 03/16/25 03/16/25 08:40 09:33 WBC RBC Hgb Hct MCV MCH MCHC RDW Std Deviation Plt Count Neut % (Auto) Lymph % (Auto) [place] % (Auto) Eos % (Auto) Baso % (Auto) Neut # (Auto) Lymph # (Auto) [place] # (Auto) Eos # (Auto) Baso # (Auto) Immature Gran # (Auto) Absolute Nucleated RBC Immature Gran % Nucleated RBC % Sodium Potassium Chloride Carbon Dioxide Anion Gap BUN Creatinine Estim Creat Clear Calc eGFR BUN/Creatinine Ratio Glucose Estimated Ave Glu mg/dL Hemoglobin A1c Calculated Osmolality Lactic Acid Calcium Corrected Calcium Phosphorus 5.2 H Magnesium Total Bilirubin AST ALT Alkaline Phosphatase Ammonia 15 Troponin I B-Natriuretic Peptide Total Protein Albumin Globulin Albumin/Globulin Ratio Triglycerides Cholesterol LDL Cholesterol, Calc HDL Cholesterol Cholesterol/HDL Ratio Lipase TSH Ur Collection Type Urine Color Urine Clarity Urine pH Ur Specific [place] Urine Protein Urine Glucose (UA) Urine Ketones Urine Blood Urine Nitrite Urine Bilirubin Urine Urobilinogen (Auto) Ur Leukocyte Esterase Urine RBC Urine WBC Ur Squamous Epith Cells Urine Bacteria Hyaline Casts Urine Opiates Screen Urine Fentanyl Screen Ur Barbiturates Screen U Amphetamin/Meth Scrn U Benzodiazepines Scrn U Cocaine Metab Screen U Marijuana (THC) Screen Influenza A (Rapid) Influenza B (Rapid) SARS-CoV-2 Ag (Rapid) Quality Measures Quality Measures VTE prophylaxis Assessment & Plan Assessment Current Active Medications: Generic Name Dose Route Start Last Admin Trade Name Freq PRN Reason Stop Dose Admin Acetaminophen 650 mg 03/15/25 23:46 Acetaminophen 325 Mg Tablet PO 04/14/25 23:45 Q6H PRN Fever >100.4 Aspirin 81 mg 03/16/25 09:00 03/16/25 09:12 Aspirin Ec 81 Mg Tabec PO 04/15/25 08:59 81 mg DAILY HANG Administration Folic Acid 1 mg 03/16/25 09:00 03/16/25 09:12 Folic Acid 1 Mg Tablet PO 04/15/25 08:59 1 mg QDAY HANG Administration Furosemide 40 mg 03/16/25 09:00 03/16/25 09:12 Furosemide Inj 10 Mg/Ml Vial 2 Ml IVP 04/15/25 08:59 40 mg BID HANG Administration Ceftriaxone Sodium/Dextrose 1 gm in 50 mls @ 100 mls/hr 03/16/25 21:00 Rocephin/D5w 1gm Iv Premix IV 03/22/25 20:59 QPM HANG Pantoprazole Sodium 40 mg 03/16/25 09:00 03/16/25 09:12 Pantoprazole Inj 40 Mg Vial IVP 04/15/25 08:59 40 mg BID HANG Administration Spironolactone 25 mg 03/16/25 09:00 Spironolactone 25 Mg Tablet PO 04/15/25 08:59 QDAY HANG Thiamine HCl 100 mg 03/16/25 09:00 03/16/25 09:12 Thiamine 100 Mg Tablet PO 04/15/25 08:59 100 mg QDAY HANG Administration Plan Patient is 64-year-old male with PMH of HTN, HLD, A-fib and type 3 block status post pacemaker presented to the ED on 03/15/2025 with shortness of breath and weakness. Patient is a poor historian. Patient was admitted for CHF exacerbation, NSTEMI type II, and possible upper GI bleed. #AHRF secondary to #Newly-diagnosed CHF Patient hasn't taken BP meds over last few days; bilateral lower extremity edema on exam, BNP 569 on admission, CXR showed CHF, echo 10/01/20 showed EF 55% Na on admission 124, today was 128; Cl on admission 92, today was 94 Plan: Lasix 40 mg IV BID Spironolactone 25 mg daily Fluid restriction 1500 mL, Strict I&O CPAP at bedtime Echo taken, awaiting read Cardiology consulted Trend Na #Elevated Troponins (possibly representing end organ damage) Secondary to #Hypertensive emergency Versus #NSTEMI Type I vs II BP on admission- 181/115; Troponin on admission 0.079, down trended to 0.057 EKG showed electronic ventricular pacemaker with a rate of 63, QTc 431, no acute ST segment changes Plan: Aspirin 81 mg daily Diuresis as above #Coffee-ground emesis #Upper GI Bleed? #Acute Normocytic Anemia 1 episode of brown-colored emesis in the ED; Admission Hgb 11.3, MCV 94 Hgb 03/16/25- 10.8 Plan: Fecal occult blood ordered GI consulted, will do EGD tonight NPO Transfuse if hemoglobin below 7 #UTI On admission- urine: 1+ blood, 6 RBC, WBC 118, bacteria 2+, leukocyte esterase positive Plan: Ceftriaxone 1 g daily F/u Ucx and Bcx #Diabetes Previous A1c- 9.8; A1c on admission 6.3 Plan: Trend blood glucose #AUD Patient admits to drinking 3 to 4 beers a day currently. Plan: Thiamine Folate #Hx of CVA Previous MRI 09/29/20 shows old infarcts Plan: Monitor for new-onset neurological changes Aspirin 81 daily #Hyperlipidemia? Patient taking atorvastatin 80 at home, lipid panel negative Plan: Consider restarting home medication #AFib #Third degree heart block Pacemaker placed at [facility]; on eliquis at home Plan: Holding anticoagulation in the presence of suspected upper GI bleed Awaiting FOBT #Lactic Acidosis (Resolved) Patient presented with a lactate of 3.0, downtrended to 1.9 DVT: Holding until confirmation of negative fecal occult blood after episode of brown emesis GI: Protonix 40 BID Diet: N.p.o. IV lines: PIVs Vincent: In place Code status: Full code This case was discussed with my attending physician, Dr. Dennis, and senior resident, Dr. Montiel. Shelton Mancuso, PGY1 Attending Provider Attestation/Addendum I reviewed labs, imaging, EKG, home medications and prior available records. Face to face evaluation was performed by me. I have personally examined the patient and discussed assessment and plan with the IM team. I reviewed the resident note and agree with the plan with exceptions as below. New onset CHF Hypertensive emergency Non-STEMI, type II in setting of hypertensive emergency and CHF Hyponatremia, likely hypervolemic in the setting of volume overload Morbid obesity Hematemesis/possible GI bleed Continue IV diuresis Follow-up echocardiogram Troponin peaked Consulted cardiology Continue IV ceftriaxone Monitor sodium level Monitor BP Outpatient weight management
[2025-03-16] MEDS: SPIRONOLACTONE 25 MG TABLET PO (11:00)
--- NOTE | 2025-03-16 11:26 | ESCONSULT_ITS ---
HPI Data of Consult Requesting Physician: Dayana Guillen MD Admitting Provider: Dayana Guillen MD Attending Provider: Dayana Guillen MD Primary Care Provider: Physician No Primary/Family Consult Narrative History of present illness: 64-year-old male with a medical history of hypertension, hyperlipidemia, atrial fibrillation, and third-degree heart block status post-pacemaker placement at [facility] presented to the ED on 03/15/2025 with complaints of shortness of breath and weakness. The patient reports one episode of small-volume hematemesis the previous night but denies any prior history of endoscopy. He also denies hematochezia, melena, or any changes in bowel movements. No significant use of NSAIDs per patient. Past medical history: As stated above. Social history: 3-5 beers a day, no smoking, no illicit drug use. GI consulted to work-up for GI bleed cc:: cc: Dayana Guillen MD Review of Systems Review of Systems Systems Reviewed: All systems reviewed, normal except as documented Exam Vital Signs Temp Pulse Resp BP Pulse Ox O2 Del Method O2 Flow Rate 98.9 F 60 19 130/64 98 High Flow Nasal Cannula 30 03/16/25 10:01 03/16/25 11:00 03/16/25 10:03/16/25 11:00 03/16/25 10:01 03/16/25 10:01 03/16/25 08:21 FiO2 40 03/16/25 08:21 Narrative Exam General: AOx3, no acute distress, able to speak full sentences HEENT: NC/AT, mucous membranes moist, bilateral sclera anicteric Cardiovascular: regular rate and rhythm, S1/S2 present, no murmurs appreciated Pulmonary: clear to auscultation bilaterally, no rales/rhonchi/wheezes Abdominal: soft, non-tender, non-distended, no rebound/guarding, normal bowel sounds present Musculoskeletal: normal ROM, bilateral lower extremity 2+ pitting edema. Skin: warm and dry, intact, no rashes, Neuro: CN II-XII intact, no focal deficits Results Labs 03/16/25 04:33 03/16/25 04:33 Labs: Short CBC 03/15/25 03/16/25 Range/Units 19:56 04:33 WBC 6.5 3.6 L D (3.8-10.6) Thou/mm3 Hgb 11.3 L 10.8 L (13.5-16.0) g/dL Hct 33.6 L 31.9 L (41.0-53.0) % Plt Count 173 173 (140-440) Thou/mm3 BMP 03/15/25 03/16/25 03/16/25 19:56 00:46 04:33 Sodium 124 L 127 L 128 L Potassium 4.6 4.6 4.7 Chloride 92 L 92 L 94 L Carbon Dioxide 20.7 21.1 23.4 BUN 10 12 15 Creatinine 1.1 1.3 1.3 Glucose 101 135 H 152 H Calcium 9.2 9.1 8.6 Cardiac Enzymes 03/15/25 03/16/25 Range/Units 19:56 00:46 Troponin I 0.079 H* 0.057 H* (0.0-0.045) ng/mL Liver Function 03/16/25 03/16/25 Range/Units 00:46 04:33 Total Bilirubin 0.8 (0.3-1.2) mg/dL AST 64 H (0-34) U/L ALT 24 (10-49) U/L Alkaline Phosphatase 79 (46-116) U/L Albumin 4.4 3.9 D (3.4-4.8) gm/dL Urine 03/15/25 Range/Units 21:20 Urine Color Lt-Yellow (Lt Yel-Yel) Urine Clarity Turbid A (Clear/Hazy) Urine pH 6.0 (5.0-7.0) Ur Specific [place] 1.011 (1.001-1.035) Urine Protein 2+ A (Neg - Trace) Urine Glucose (UA) Negative (Negative) Quality Measures Quality Measures VTE prophylaxis Medications Home Medications and Allergies Allergies Allergy/AdvReac Type Severity Reaction Status Date / Time No Known Drug Allergies Allergy Verified 01/23/21 10:49 Visit Medications Acetaminophen (Acetaminophen 325 Mg Tablet) 650 mg PO Q6H PRN PRN Reason: Fever >100.4 Stop: 04/14/25 23:45 Aspirin (Aspirin Ec 81 Mg Tabec) 81 mg PO DAILY [facility] Stop: 04/15/25 08:59 Last Admin: 03/16/25 09:12 Dose: 81 mg Folic Acid (Folic Acid 1 Mg Tablet) 1 mg PO QDAY [facility] Stop: 04/15/25 08:59 Last Admin: 03/16/25 09:12 Dose: 1 mg Furosemide (Furosemide Inj 10 Mg/Ml Vial 2 Ml) 40 mg IVP BID [facility] Stop: 04/15/25 08:59 Last Admin: 03/16/25 09:12 Dose: 40 mg Ceftriaxone Sodium/Dextrose (Rocephin/D5w 1gm Iv Premix) 1 gm in 50 mls @ 100 mls/hr IV QPM [facility] Stop: 03/22/25 20:59 Pantoprazole Sodium (Pantoprazole Inj 40 Mg Vial) 40 mg IVP BID [facility] Stop: 04/15/25 08:59 Last Admin: 03/16/25 09:12 Dose: 40 mg Spironolactone (Spironolactone 25 Mg Tablet) 25 mg PO QDAY [facility] Stop: 04/15/25 08:59 Last Admin: 03/16/25 11:00 Dose: 25 mg Thiamine HCl (Thiamine 100 Mg Tablet) 100 mg PO QDAY [facility] Stop: 04/15/25 08:59 Last Admin: 03/16/25 09:12 Dose: 100 mg Discontinued Medications Albuterol/Ipratropium (Albuterol/Ipratropium (Duoneb) Rt Fatou 3 Ml Nebu) 3 ml INH X1 ONE Stop: 03/15/25 19:36 Last Admin: 03/15/25 20:51 Dose: 3 ml Apixaban (Apixaban 2.5 Mg Tablet) 5 mg PO BID [facility]ANG Stop: 04/15/25 00:29 Last Admin: 03/16/25 02:57 Dose: Not Given Dexamethasone Sodium Phosphate (Dexamethasone Sod Phos Inj 10 Mg/Ml Vial) 10 mg IM X1 ONE Stop: 03/15/25 19:36 Last Admin: 03/15/25 19:48 Dose: 10 mg Enoxaparin Sodium (Enoxaparin Sod Inj 40 Mg/0.4 Ml Syringe) 40 mg SC QDAY [facility] Stop: 03/30/25 08:59 Furosemide (Furosemide Inj 10 Mg/Ml Vial 2 Ml) 40 mg IM X1 ONE Stop: 03/15/25 20:18 Last Admin: 03/15/25 21:23 Dose: 40 mg Furosemide (Furosemide Inj 10 Mg/Ml 4ml Vial) 40 mg IVP X1 ONE Stop: 03/16/25 07:18 Last Admin: 03/16/25 07:28 Dose: 40 mg Sodium Chloride (Ns) 1,000 mls @ 150 mls/hr IV .Q6H40M ONE Stop: 03/16/25 02:56 Last Admin: 03/16/25 03:47 Dose: Not Given Ceftriaxone Sodium/Dextrose (Rocephin/D5w 1gm Iv Premix) 1 gm in 50 mls @ 100 mls/hr IV X1 ONE Stop: 03/15/25 22:06 Last Admin: 03/16/25 05:27 Dose: Not Given Levofloxacin/Dextrose (Levaquin Ivpb) 750 mg in 150 mls @ 100 mls/hr IV X1 ONE Stop: 03/15/25 23:05 Last Admin: 03/16/25 00:00 Dose: Not Given Ceftriaxone Sodium/Dextrose (Rocephin/D5w 1gm Iv Premix) 1 gm in 50 mls @ 100 mls/hr IV X1 ONE Stop: 03/16/25 00:14 Last Infusion: 03/16/25 01:07 Dose: Infused Pantoprazole Sodium (Protonix/Ns 80mg Iv Premix) 80 mg in 100 mls @ 400 mls/hr IV X1 ONE Stop: 03/16/25 02:13 Last Infusion: 03/16/25 03:07 Dose: Infused Thiamine HCl (Thiamine Inj 100 Mg/Ml Vial 2 Ml) 500 mg IVP X1 ONE Stop: 03/15/25 23:41 Last Admin: 03/15/25 23:48 Dose: 500 mg Assessment & Plan Plan 64-year-old male with a past medical history of hypertension, hyperlipidemia, A- fib status post pacemaker placement at [facility] presented to the ED in the evening of 03/15/2025 with chief complaint of shortness of breath and weakness. Patient had 1 episode of brown-colored emesis in the ED. GI consulted to work-up for GI bleed. #GI bleed work-up #Acute Normocytic Anemia 1 episode of brown-colored emesis in the ED No significant use of NSAIDs per patient. Drinks 3-5 beers a day, and has been doing so for many years Presented with hemoglobin 11.3 which has dropped to 10.8 Fecal occult blood pending Plan: - Keep NPO - EGD planned for tonight - Continue Protonix 40 mg twice daily - HOLD anticoag - Transfuse if hemoglobin <7 Ongoing issues, managed by the primary team: #New onset CHF #Elevated BNP #Hyponatremia #Hypochloremia #Elevated Troponins (possibly representing end organ damage) Secondary to #Hypertensive emergency Versus #NSTEMI Type II #Diabetes #UTI #Hyperlipidemia #A-Fib Status Post Pacemaker Placement #Lactic Acidosis (Resolved) Thank you for the consult. We will continue to follow the patient. Case discussed with my attending Dr. Balta Bliss MD PGY-1 Attending Provider Attestation/Addendum Patient personally examined and evaluated Episode of hematemesis With drop in hemoglobin hematocrit went over the assessment Of the internal medicine resident Consent obtained for fiberoptic esophagogastroduodenoscopy biopsy therapeutic intervention under intravenous moderate sedation Serial CBC IV Protonix Will follow the patient Thank you very much for the opportunity to participate in the care of this patient
--- NOTE | 2025-03-16 12:35 | ESCONSULT_ITS ---
HPI Data of Consult Requesting Physician: Dayana Guillen MD Admitting Provider: Dayana Guillen MD Attending Provider: Dayana Guillen MD Primary Care Provider: Physician No Primary/Family Consult Narrative History of present illness: Mr. Fields is a 64-year-old male with past medical history of hypertension, hyperlipidemia, atrial fibrillation, third-degree heart block status post pacemaker placement at [facility], Stroke/TIA, alcohol use and prediabetes who presented to [facility] emergency department with a chief complaint of difficulty walking. Patient reported that he has been having difficulty getting out of bed along with that patient complains of shortness of breath, endorses orthopnea. Patient is a poor historian, does not want to provide history, has some shortness of breath on high flow nasal cannula currently. Patient does have a history of significant alcohol use, currently lives in a [place] [facility] denies any drug use. Patient did have an episode of possible brown-colored emesis in the ER, GI bleed workup was initiated as well. Patient does not remember seeing a adjuster and inspector outpatient. ED course vitals on presentation significant for blood pressure 181/115, respiratory rate 25, patient has increased work of breathing. Labs on presentation significant for sodium 124, chloride 92, osmolality 248, lactic 3.0, troponin 0.079, BNP 569. Urine: 2+ protein, 1+ blood, 6 RBC, 1.18 WBC, 2+ bacteria, leukocyte esterase positive EKG on presentation shows pacemaker rhythm, no acute ST-T changes noted, rate 63. Patient received 10 mg dexamethasone, DuoNeb treatment, 40 mg IM Lasix, 500 mg thiamine,1 g of ceftriaxone. cc:: cc: Dayana Guillen MD Review of Systems Review of Systems Systems Reviewed: All systems reviewed, normal except as documented Past Medical History Past Medical History Comments PMH COMMENT: PMH: Positive for hypertension, hyperlipidemia, atrial fibrillation, third-degree heart block status post pacemaker placement at [facility], Stroke/TIA, alcohol use and prediabetes PSHx: Left shoulder surgery Allergies: No known drug allergies Social history: -Smoking: Denies -Alcohol Use: Positive for heavy alcohol use in the past, toxicology report in the past positive for alcohol -Illicit Drug Use:Urine drug screen positive for benzodiazepines in the past, denies drug use Family History: Family history unremarkable for cardiac disease Exam Vital Signs Temp Pulse Resp BP Pulse Ox O2 Del Method O2 Flow Rate 98.9 F 60 19 130/64 98 High Flow Nasal Cannula 30 03/16/25 10:01 03/16/25 11:00 03/16/25 10:01 03/16/25 11:00 03/16/25 10:01 03/16/25 10:01 03/16/25 08:21 FiO2 40 03/16/25 08:21 Narrative Exam Physical Exam General: Awake and in no acute distress. Conversational and non-toxic appearing. HEENT: Normocephalic, atraumatic, mucous membranes moist. On high flow nasal cannula. Heart: Regular rate and rhythm, no murmurs. Lungs: Clear to auscultation with no wheezing or crackles. Abdomen: Soft, obese, distended, nontender, positive bowel sounds. No guarding or rebound tenderness. Neurologic: Alert and oriented x3, no gross neurological deficit, and patient able to move all 4 extremities. Extremities: 2+ bilateral lower extremity edema Skin: No rash or ecchymoses. Results Labs 03/16/25 04:33 03/16/25 04:33 Labs: Short CBC 03/15/25 03/16/25 Range/Units 19:56 04:33 WBC 6.5 3.6 L D (3.8-10.6) Thou/mm3 Hgb 11.3 L 10.8 L (13.5-16.0) g/dL Hct 33.6 L 31.9 L (41.0-53.0) % Plt Count 173 173 (140-440) Thou/mm3 BMP 03/15/25 03/16/25 03/16/25 19:56 00:46 04:33 Sodium 124 L 127 L 128 L Potassium 4.6 4.6 4.7 Chloride 92 L 92 L 94 L Carbon Dioxide 20.7 21.1 23.4 BUN 10 12 15 Creatinine 1.1 1.3 1.3 Glucose 101 135 H 152 H Calcium 9.2 9.1 8.6 Cardiac Enzymes 03/15/25 03/16/25 Range/Units 19:56 00:46 Troponin I 0.079 H* 0.057 H* (0.0-0.045) ng/mL Liver Function 03/16/25 03/16/25 Range/Units 00:46 04:33 Total Bilirubin 0.8 (0.3-1.2) mg/dL AST 64 H (0-34) U/L ALT 24 (10-49) U/L Alkaline Phosphatase 79 (46-116) U/L Albumin 4.4 3.9 D (3.4-4.8) gm/dL Urine 03/15/25 Range/Units 21:20 Urine Color Lt-Yellow (Lt Yel-Yel) Urine Clarity Turbid A (Clear/Hazy) Urine pH 6.0 (5.0-7.0) Ur Specific [place] 1.011 (1.001-1.035) Urine Protein 2+ A (Neg - Trace) Urine Glucose (UA) Negative (Negative) Quality Measures Quality Measures VTE prophylaxis Medications Home Medications and Allergies Home Medications ?Medication ?Instructions ?Recorded ?Confirmed ?Type apixaban 5 mg tablet (Eliquis) 5 mg PO QDAY 03/16/25 1 05/17/24 History atorvastatin 80 mg tablet 80 mg PO QDAY 03/16/2503/16 History furosemide 40 mg tablet 40 mg PO QDAY 03/16/2503/16 History spironolactone 25 mg tablet 12.5 mg PO QDAY 03/16/25 1 05/17/24 History Allergies Allergy/AdvReac Type Severity Reaction Status Date / Time No Known Drug Allergies Allergy Verified 01/23/21 10:49 Visit Medications Acetaminophen (Acetaminophen 325 Mg Tablet) 650 mg PO Q6H PRN PRN Reason: Fever >100.4 Stop: 04/14/25 23:45 Aspirin (Aspirin Ec 81 Mg Tabec) 81 mg PO DAILY [facility] Stop: 04/15/25 08:59 Last Admin: 03/16/25 09:12 Dose: 81 mg Folic Acid (Folic Acid 1 Mg Tablet) 1 mg PO QDAY [facility] Stop: 04/15/25 08:59 Last Admin: 03/16/25 09:12 Dose: 1 mg Furosemide (Furosemide Inj 10 Mg/Ml Vial 2 Ml) 40 mg IVP TID [facility] Stop: 04/15/25 13:59 Ceftriaxone Sodium/Dextrose (Rocephin/D5w 1gm Iv Premix) 1 gm in 50 mls @ 100 mls/hr IV QPM [facility] Stop: 03/22/25 20:59 Pantoprazole Sodium (Pantoprazole Inj 40 Mg Vial) 40 mg IVP BID [facility] Stop: 04/15/25 08:59 Last Admin: 03/16/25 09:12 Dose: 40 mg Spironolactone (Spironolactone 25 Mg Tablet) 25 mg PO QDAY [facility] Stop: 04/15/25 08:59 Last Admin: 03/16/25 11:00 Dose: 25 mg Thiamine HCl (Thiamine 100 Mg Tablet) 100 mg PO QDAY [facility] Stop: 04/15/25 08:59 Last Admin: 03/16/25 09:12 Dose: 100 mg Discontinued Medications Albuterol/Ipratropium (Albuterol/Ipratropium (Duoneb) Rt Fatou 3 Ml Nebu) 3 ml INH X1 ONE Stop: 03/15/25 19:36 Last Admin: 03/15/25 20:51 Dose: 3 ml Apixaban (Apixaban 2.5 Mg Tablet) 5 mg PO BID [facility] Stop: 04/15/25 00:29 Last Admin: 03/16/25 02:57 Dose: Not Given Dexamethasone Sodium Phosphate (Dexamethasone Sod Phos Inj 10 Mg/Ml Vial) 10 mg IM X1 ONE Stop: 03/15/25 19:36 Last Admin: 03/15/25 19:48 Dose: 10 mg Enoxaparin Sodium (Enoxaparin Sod Inj 40 Mg/0.4 Ml Syringe) 40 mg SC QDAY [facility] Stop: 03/30/25 08:59 Furosemide (Furosemide Inj 10 Mg/Ml Vial 2 Ml) 40 mg IM X1 ONE Stop: 03/15/25 20:18 Last Admin: 03/15/25 21:23 Dose: 40 mg Furosemide (Furosemide Inj 10 Mg/Ml Vial 2 Ml) 40 mg IVP BID [facility] Stop: 04/15/25 08:59 Last Admin: 03/16/25 09:12 Dose: 40 mg Furosemide (Furosemide Inj 10 Mg/Ml 4ml Vial) 40 mg IVP X1 ONE Stop: 03/16/25 07:18 Last Admin: 03/16/25 07:28 Dose: 40 mg Sodium Chloride (Ns) 1,000 mls @ 150 mls/hr IV .Q6H40M ONE Stop: 03/16/25 02:56 Last Admin: 03/16/25 03:47 Dose: Not Given Ceftriaxone Sodium/Dextrose (Rocephin/D5w 1gm Iv Premix) 1 gm in 50 mls @ 100 mls/hr IV X1 ONE Stop: 03/15/25 22:06 Last Admin: 03/16/25 05:27 Dose: Not Given Levofloxacin/Dextrose (Levaquin Ivpb) 750 mg in 150 mls @ 100 mls/hr IV X1 ONE Stop: 03/15/25 23:05 Last Admin: 03/16/25 00:00 Dose: Not Given Ceftriaxone Sodium/Dextrose (Rocephin/D5w 1gm Iv Premix) 1 gm in 50 mls @ 100 mls/hr IV X1 ONE Stop: 03/16/25 00:14 Last Infusion: 03/16/25 01:07 Dose: Infused Pantoprazole Sodium (Protonix/Ns 80mg Iv Premix) 80 mg in 100 mls @ 400 mls/hr IV X1 ONE Stop: 03/16/25 02:13 Last Infusion: 03/16/25 03:07 Dose: Infused Thiamine HCl (Thiamine Inj 100 Mg/Ml Vial 2 Ml) 500 mg IVP X1 ONE Stop: 03/15/25 23:41 Last Admin: 03/15/25 23:48 Dose: 500 mg Assessment & Plan Plan Assessment and plan: Summary: Mr. Fields is a 64-year-old male with past medical history of hypertension, hyperlipidemia, atrial fibrillation, third-degree heart block status post pacemaker placement at [facility], Stroke/TIA, alcohol use and prediabetes who presented to [facility] emergency department with a chief complaint of difficulty walking. Patient found to have bilateral lower extremity edema, admitted for new onset CHF and possible acute decompensated heart failure. #Acute decompensated heart failure #New onset CHF Patient presented with bilateral lower extremity edema, endorses some shortness of breath currently on high flow nasal cannula. Patient has longstanding history of hypertension, prediabetes, history of atrial fibrillation with history of third-degree heart block with status post pacemaker placement at [facility]. History of significant alcohol use in the past BNP on presentation 569 Recommendations: - Continue diuresis with Lasix 40 mg IV twice daily - Strict intake and output, daily weight, fluid restriction 1500 cc - Echocardiogram is pending to assess LV RV function - Obtain iron panel, consider IV iron if patient has low iron reserve #NSTEMI type II versus type I Patient denies any chest pain, troponin on presentation 0.079 which downtrended to 0.057 EKG was negative for any acute ST-T changes Patient's troponin elevation likely secondary to demand ischemia ?Monitor for chest pain #Atrial fibrillation Patient has history of atrial fibrillation, on Eliquis at home Patient had brown-colored emesis in the ED, concern of GI bleed, GI bleed workup initiated by primary team. [id number] score: 5 points ?Agree with holding Eliquis in setting of GI bleed ?Keep potassium greater than 4 and magnesium greater than 2 at all times #Third-degree heart block status post pacemaker placement Patient has history of pacemaker placement, was transferred from [facility] in the past to [facility] where apparently the pacemaker was placed. Will review previous records. #Hypertension Home dose of spironolactone was resumed, monitor blood pressure #Hyperlipidemia Lipid panel shows cholesterol 132, triglycerides 37, LDL 54, HDL 71 Per ASCVD risk algorithm, atorvastatin recommended - Will start on atorvastatin 40 mg at bedtime #GI bleed workup #Prediabetes #History of significant alcohol use in the past #History of stroke/TIA ?Management per primary team Thank you for the consult and allowing to participate in the care of the patient. Cardiology will continue to follow. Case discussed with Attending Physician Dr. Silver Terrazas MD Internal Medicine PGY-2 Disclaimer: This note was dictated by speech recognition. Minor errors in application development team lead may be present due to voice recognition software. Attending Provider Attestation/Addendum I have personally seen and examined the patient separately on the above date of service and discussed the plan of care with the resident. I reviewed the resident Dr. Agustín Terrazas consultation progress note and agree with the resident findings and plan in the note above and have also edited the documentation to reflect my findings and plan. Silver Abad M.D. Interventional Cardiology
--- NOTE | 2025-03-16 18:18 | SUR.PHASEI ---
Pt. arrived to recovery via gurney, eyes closed, pt. allowed to sleep, VSS, lung sounds clear, applied NC at 3 liters d/t sp02 at 92% on RA, shah catheter in place, report received from Cee FULLER.
[2025-03-16] MEDS: APIXABAN 2.5 MG TABLET 5 MG PO (21:15)
[2025-03-16] MEDS: cefTRIAXone/D5w 1gm IV premix 1 GM/50 ML BAG IV (21:15)
[2025-03-17] VITALS (12 sets, daily range): BP systolic 121–162; BP diastolic 67–85; PULSE 60–64; RESP 11–18; TEMP 36.3–36.6; O2SAT 93–100; BMI 44.2; BMI 44.3
[2025-03-17] MEDS: Magnesium Sulfate 4 GM Ivpb 4 GM/50 ML BAG IV (00:51)
[2025-03-17] MEDS: FUROSEMIDE INJ 10 MG/ML VIAL 2 ML 40 MG IVP ×2 (05:17→14:50)
[2025-03-17 05:47] LABS: Basophils # (Auto) 0.0 Thou/mm3 (0.0-0.2); Basophils % (Auto) 0 % (0-2.5); Eosinophils # (Auto) 0.0 Thou/mm3 (0.0-0.5); Eosinophils % (Auto) 1 % (0-10); Hematocrit 32.2 % (41.0-53.0); Hemoglobin 10.8 g/dL (13.5-16.0); Immature Granulocytes Auto 0.02 Thou/mm3 (0.00-0.00); Lymphocytes # (Auto) 1.0 Thou/mm3 (1.0-4.8); Lymphocytes % (Auto) 15 % (10-50); Mean Corpuscular HGB Conc 33.5 g/dl (31.0-37.0); Mean Corpuscular Hemoglobin 31.6 pg (25.0-35.0); Mean Corpuscular Volume 94 fL (80-100); Monocytes # (Auto) 1.3 Thou/mm3 (0.0-0.8); Monocytes % (Auto) 20 % (0-12); Neutrophils # (Auto) 4.3 Thou/mm3 (1.8-7.7); Neutrophils % (Auto) 64 % (37-80); Nucleated Red Blood Cell # 0.00 Thou/mm3 (0.00-0.00); Nucleated Red Blood Cell % 0 /100 WBC (0); Platelet Count 176 Thou/mm3 (140-440); RDW Standard Deviation 48.5 fL (35.1-43.9); Red Blood Count 3.42 Miln/mm3 (4.50-5.90); White Blood Count 6.7 Thou/mm3 (3.8-10.6)
[2025-03-17 06:17] LABS: Alanine Aminotransferase 27 U/L (10-49); Albumin, Serum 4.1 gm/dL (3.4-4.8); Albumin/Globulin Ratio 1.2 (1.2-2.2); Alkaline Phosphatase 73 U/L (46-116); Anion Gap 13 (7-16); Aspartate Amino Transferase 62 U/L (0-34); BUN/Creatinine Ratio 14 Ratio (12-20); Bilirubin,Total 0.6 mg/dL (0.3-1.2); Blood Urea Nitrogen 23 mg/dL (9-23); Calcium 9.1 mg/dL (8.3-10.6); Calcium (Corrected) 9.1 mg/dL (8.5-10.1); Carbon Dioxide 28.5 mMol/L (20.0-31.0); Chloride 94 mMol/L (98-107); Creatinine (Component) 1.6 mg/dL (0.6-1.3); Estimated Creatinine Clearance 56.2 mL/min (>60); Globulin 3.5 gm/dL (2.3-3.5); Glucose 142 mg/dL (74-106); Osmolality,Calculated 275 (275-295); Potassium 3.6 mMol/L (3.4-5.1); Sodium 135 mMol/L (136-145); Total Protein 7.6 gm/dL (5.7-8.2); eGFR 48 See Note
--- NOTE | 2025-03-17 08:12 | PD.HHPROG ---
Documentation for date of: 03/17/25 Subjective - Hospitalist Subjective Interval history: No acute events overnight Patient diuresed well with almost 4 L net negative however ins are likely inaccurate Sodium improved to 135. Potassium is 3.6. Status post EGD that showed esophageal ulcer and gastritis. GI advanced the diet Patient reported improvement in his breathing and less leg swelling. He reported no chest pain, shortness of breath, nausea, or vomiting. Finance And Administration Manager service was provided to discuss the findings of the EGD. Nurse at the bedside was present Review of Systems Review of Systems Narrative Review of Systems: 12 point of system reviewed. All negative except as mentioned in the HPI Exam Vital Signs Temp Pulse Resp BP Pulse Ox O2 Del Method O2 Flow Rate 97.6 F 62 12 150/85 H 98 Nasal Cannula 3 03/17/25 04:00 03/17/25 06:49 03/17/25 06:49 03/17/25 05:17 03/17/25 06:49 03/17/25 04:00 03/17/25 06:49 FiO2 40 03/17/25 04:00 Narrative General: A/O x3, no acute distress, well-nourished, well-developed. Estonian-speaking only. Eyes: PERRL, EOMI. Anicteric, vision grossly intact. Ears: No ear pain, no ear discharge, Hearing grossly intact. Nose: No nasal discharge. Mouth/Throat: Moist mucous membranes, no redness, no lesions. Neck: Neck supple, non-tender, no cervical lymphadenopathy. Lungs: Clear IFEOMA to auscultation and percussion, No accessory muscle use. Cardio: Normal S1/S2, regular rhythm, no murmurs, no JVD or carotid bruits. Abdomen: Soft, distended non-tender, no palpable masses, peristalsis present, no guarding or rebound. Extremities: Symmetrical, no significant deformities, 1+ bilateral lower extremity pitting edema , non-tender, peripheral pulses present. Skin: No rashes, no lesions, warm to touch. Neuro: No focal neurological deficits. Psych: Cooperative, appropriate mood and effect. Objective - Hospitalist Labs Diagram: 03/17/25 05:09 03/17/25 05:09 Labs: Laboratory Results - last 24 hr 03/16/25 03/16/25 03/17/25 08:40 09:33 05:09 WBC 6.7 D RBC 3.42 L Hgb 10.8 L Hct 32.2 L MCV 94 MCH 31.6 MCHC 33.5 RDW Std Deviation 48.5 H Plt Count 176 Neut % (Auto) 64 Lymph % (Auto) 15 [place] % (Auto) 20 H Eos % (Auto) 1 Baso % (Auto) 0 Neut # (Auto) 4.3 Lymph # (Auto) 1.0 [place] # (Auto) 1.3 H Eos # (Auto) 0.0 Baso # (Auto) 0.0 Immature Gran # (Auto) 0.02 H Absolute Nucleated RBC 0.00 Immature Gran % 0 Nucleated RBC % 0 Sodium 135 L Potassium 3.6 D Chloride 94 L Carbon Dioxide 28.5 Anion Gap 13 BUN 23 Creatinine 1.6 H Estim Creat Clear Calc 56.2 L eGFR 48 L BUN/Creatinine Ratio 14 Glucose 142 H Calculated Osmolality 275 Calcium 9.1 Corrected Calcium 9.1 Phosphorus 5.2 H Total Bilirubin 0.6 AST 62 H ALT 27 Alkaline Phosphatase 73 Ammonia 15 Total Protein 7.6 Albumin 4.1 Globulin 3.5 Albumin/Globulin Ratio 1.2 Assessment & Plan Patient Synopsis Patient is 64-year-old male with PMH of HTN, HLD, A-fib and type 3 block status post pacemaker presented to the ED on 03/15/2025 with shortness of breath and weakness. Patient is a poor historian. Patient was admitted for CHF exacerbation, NSTEMI type II, and possible upper GI bleed. #AHRF secondary to #Newly-diagnosed CHF Patient hasn't taken BP meds over last few days; bilateral lower extremity edema on exam, BNP 569 on admission, CXR showed CHF, echo 10/01/20 showed EF 55% Na on admission 124, today was 128; Cl on admission 92, today was 94 Plan: Lasix 40 mg IV BID Spironolactone 25 mg daily Fluid restriction 1500 mL, Strict I&O CPAP at bedtime Echo taken, showed EF of 45 to 50%, stage I diastolic dysfunction, and RVSP of 32 Cardiology consulted: Recommended to keep diuresing the patient and send iron panel Hyponatremia Likely hypervolemic hyponatremia in setting of CHF and volume overload Trend Na: Improved with diuresis. Continue to monitor sodium level #Elevated Troponins (possibly representing end organ damage) Secondary to #Hypertensive emergency, resolved #NSTEMI Type I vs II BP on admission- 181/115; Troponin on admission 0.079, down trended to 0.057 EKG showed electronic ventricular pacemaker with a rate of 63, QTc 431, no acute ST segment changes Plan: Continue to monitor BP Aspirin 81 mg daily Diuresis as above #Coffee-ground emesis #Upper GI Bleed? #Acute Normocytic Anemia 1 episode of brown-colored emesis in the ED; Admission Hgb 11.3, MCV 94 Hgb 03/16/25- 10.8 Plan: Fecal occult blood ordered GI consulted, status post EGD that showed esophageal ulcer and gastritis. GI advanced the diet Advance diet as tolerated to peptic ulcer disease diet Transfuse if hemoglobin below 7 #UTI On admission- urine: 1+ blood, 6 RBC, WBC 118, bacteria 2+, leukocyte esterase positive Plan: Ceftriaxone 1 g daily F/u Ucx and Bcx #Diabetes Previous A1c- 9.8; A1c on admission 6.3 Plan: Trend blood glucose #AUD Patient admits to drinking 3 to 4 beers a day currently. Plan: Thiamine Folate #Hx of CVA Previous MRI 09/29/20 shows old infarcts Plan: Monitor for new-onset neurological changes Aspirin 81 daily #Hyperlipidemia? Patient taking atorvastatin 80 at home, lipid panel negative Plan: Consider restarting home medication #AFib #Third degree heart block Pacemaker placed at [facility]; on eliquis at home Plan: Holding anticoagulation in the presence of suspected upper GI bleed Awaiting FOBT #Lactic Acidosis (Resolved) Patient presented with a lactate of 3.0, downtrended to 1.9 DVT: Holding until confirmation of negative fecal occult blood after episode of brown emesis GI: Protonix 40 BID Diet: N.p.o. IV lines: PIVs Vincent: In place Code status: Full code Time Spent with Patient Time: Total time spent is greater than 50% in coordination of care (as documented) at patient's floor/unit and/or counseling patient: Time with patient: 25 - 35 minutes Reason for Continued Stay Reason for continued stay: other Quality Measures Quality Measures VTE prophylaxis
--- NOTE | 2025-03-17 08:53 | PC.SS ---
Follow up note: IV diuresis.
[2025-03-17] MEDS: FOLIC ACID 1 MG TABLET PO (09:14)
[2025-03-17] MEDS: THIAMINE 100 MG TABLET PO (09:14)
[2025-03-17] MEDS: SPIRONOLACTONE 25 MG TABLET PO (09:15)
[2025-03-17] MEDS: ASPIRIN EC 81 MG TABEC PO (09:15)
[2025-03-17] MEDS: APIXABAN 2.5 MG TABLET 5 MG PO ×2 (09:15→20:39)
--- NOTE | 2025-03-17 10:47 | PC.NURSE ---
Called Dr. Dennis to inquire about patient's shah catheter. Said okay to discontinue.
--- NOTE | 2025-03-17 12:26 | PC.NURSE ---
Blood culture no growth after [address] Dennis. Talked to infection control. Removing contact precautions.
--- NOTE | 2025-03-17 14:47 | PD.IMPROG ---
Documentation for date of: 03/17/25 Subjective Subjective Interval history: Mr. Fields is a 64-year-old male with past medical history of hypertension, hyperlipidemia, atrial fibrillation, third-degree heart block status post pacemaker placement at [facility], Stroke/TIA, alcohol use and prediabetes who presented to [facility] emergency department with a chief complaint of difficulty walking. Patient reported that he has been having difficulty getting out of bed along with that patient complains of shortness of breath, endorses orthopnea. Patient is a poor historian, does not want to provide history, has some shortness of breath on high flow nasal cannula currently. Patient does have a history of significant alcohol use, currently lives in a assisted denies any drug use. Patient did have an episode of possible brown-colored emesis in the ER, GI bleed workup was initiated as well. Patient does not remember seeing a lithographic proofer outpatient. ED course vitals on presentation significant for blood pressure 181/115, respiratory rate 25, patient has increased work of breathing. Labs on presentation significant for sodium 124, chloride 92, osmolality 248, lactic 3.0, troponin 0.079, BNP 569. Urine: 2+ protein, 1+ blood, 6 RBC, 1.18 WBC, 2+ bacteria, leukocyte esterase positive EKG on presentation shows pacemaker rhythm, no acute ST-T changes noted, rate 63. Patient received 10 mg dexamethasone, DuoNeb treatment, 40 mg IM Lasix, 500 mg thiamine,1 g of ceftriaxone. 03/17/25 Patient examined at bedside. No new cardiac complains. Patient diuresing well with lasix 40 mg IV TID. BUN is 23 and creatinine is 1.6 today. Please hold lasix for today given the CLARITA. Replace KCL 60 meq/l orally, magnesium 1.6 replace 6 grams magnesium sulfate iv. Keep K greater than 4 and Mg greater than 2 at all times. EF is mildly reduced at 45-50%, will start GDMT once agressive diuresis is completed if kidney function and BP are stable. Echo done 03/16/25 showed Overall poor quality images and suboptimal study. 2. Left ventricle size is mildly enlarged and systolic showe function is mildly reduced. Estimated ejection fraction is 45-50%. There is stage 1 diastolic dysfunction. 3. Right ventricle chamber size is mildly enlarged and systolic function is normal. Estimated RVSP is 32 mmHg with RAP 8. 4. There is mild mitral and tricuspid valve regurgitation. Mild AV sclerosis without stenosis. 5. The left atrium is severely enlarged. The right atrium is severely enlarged. 6. Dilated cardiomyopathy. Exam Vital Signs Temp Pulse Resp BP Pulse Ox O2 Del Method O2 Flow Rate 97.8 F 64 16 122/67 96 Nasal Cannula 3 03/17/25 12:00 03/17/25 12:00 03/17/25 12:00 03/17/25 12:00 03/17/25 12:00 03/17/25 12:00 03/17/25 12:00 FiO2 40 03/17/25 04:00 Narrative Exam General: Awake and in no acute distress. Conversational and non-toxic appearing. HEENT: Normocephalic, atraumatic, mucous membranes moist. On high flow nasal cannula. Heart: Regular rate and rhythm, no murmurs. Lungs: Clear to auscultation with no wheezing or crackles. Abdomen: Soft, obese, distended, nontender, positive bowel sounds. No guarding or rebound tenderness. Neurologic: Alert and oriented x3, no gross neurological deficit, and patient able to move all 4 extremities. Extremities: 2+ bilateral lower extremity edema Skin: No rash or ecchymoses. Objective Labs 03/17/25 05:09 03/17/25 05:09 Labs: Laboratory Results - last 24 hr 03/17/25 05:09 WBC 6.7 D RBC 3.42 L Hgb 10.8 L Hct 32.2 L MCV 94 MCH 31.6 MCHC 33.5 RDW Std Deviation 48.5 H Plt Count 176 Neut % (Auto) 64 Lymph % (Auto) 15 [place] % (Auto) 20 H Eos % (Auto) 1 Baso % (Auto) 0 Neut # (Auto) 4.3 Lymph # (Auto) 1.0 [place] # (Auto) 1.3 H Eos # (Auto) 0.0 Baso # (Auto) 0.0 Immature Gran # (Auto) 0.02 H Absolute Nucleated RBC 0.00 Immature Gran % 0 Nucleated RBC % 0 Sodium 135 L Potassium 3.6 D Chloride 94 L Carbon Dioxide 28.5 Anion Gap 13 BUN 23 Creatinine 1.6 H Estim Creat Clear Calc 56.2 L eGFR 48 L BUN/Creatinine Ratio 14 Glucose 142 H Calculated Osmolality 275 Calcium 9.1 Corrected Calcium 9.1 Total Bilirubin 0.6 AST 62 H ALT 27 Alkaline Phosphatase 73 Total Protein 7.6 Albumin 4.1 Globulin 3.5 Albumin/Globulin Ratio 1.2 Assessment & Plan A&P Narrative Mr. Fields is a 64-year-old male with past medical history of hypertension, hyperlipidemia, atrial fibrillation, third-degree heart block status post pacemaker placement at [facility], Stroke/TIA, alcohol use and prediabetes who presented to [facility] emergency department with a chief complaint of difficulty walking. Patient found to have bilateral lower extremity edema, admitted for new onset CHF and possible acute decompensated heart failure. #Acute decompensated heart failure #New onset mild systolic CHF exacerbation Patient presented with bilateral lower extremity edema, endorses some shortness of breath currently on high flow nasal cannula. Patient has longstanding history of hypertension, prediabetes, history of atrial fibrillation with history of third-degree heart block with status post pacemaker placement at [facility]. History of significant alcohol use in the past BNP on presentation 569 Recommendations: - Continue diuresis with Lasix 40 mg IV twice daily - Strict intake and output, daily weight, fluid restriction 1500 cc - Echocardiogram is pending to assess LV RV function - Obtain iron panel, consider IV iron if patient has low iron reserve 03/17/25 Patient diuresing well with lasix 40 mg IV TID. BUN is 23 and creatinine is 1.6 today. Please hold lasix for today given the CLARITA. Replace KCL 60 meq/l 40+20 orally, magnesium 1.6 replace 6 grams magnesium sulfate iv. Keep K greater than 4 and Mg greater than 2 at all times. EF is mildly reduced at 45-50%, will start GDMT once agressive diuresis is completed if kidney function and BP are stable. Echo done 03/16/25 showed Overall poor quality images and suboptimal study. 2. Left ventricle size is mildly enlarged and systolic showe function is mildly reduced. Estimated ejection fraction is 45-50%. There is stage 1 diastolic dysfunction. 3. Right ventricle chamber size is mildly enlarged and systolic function is normal. Estimated RVSP is 32 mmHg with RAP 8. 4. There is mild mitral and tricuspid valve regurgitation. Mild AV sclerosis without stenosis. 5. The left atrium is severely enlarged. The right atrium is severely enlarged. 6. Dilated cardiomyopathy. #NSTEMI type II versus type I Patient denies any chest pain, troponin on presentation 0.079 which downtrended to 0.057 EKG was negative for any acute ST-T changes Patient's troponin elevation likely secondary to demand ischemia ?Monitor for chest pain #Atrial fibrillation Patient has history of atrial fibrillation, on Eliquis at home Patient had brown-colored emesis in the ED, concern of GI bleed, GI bleed workup initiated by primary team. [id number] score: 5 points ?Agree with holding Eliquis in setting of GI bleed ?Keep potassium greater than 4 and magnesium greater than 2 at all times #Third-degree heart block status post pacemaker placement Patient has history of pacemaker placement, was transferred from [facility] in the past to [facility] where apparently the pacemaker was placed. Will review previous records. #Hypertension Home dose of spironolactone was resumed, monitor blood pressure #Hyperlipidemia Lipid panel shows cholesterol 132, triglycerides 37, LDL 54, HDL 71 Per ASCVD risk algorithm, atorvastatin recommended - Will start on atorvastatin 40 mg at bedtime #GI bleed workup #Prediabetes #History of significant alcohol use in the past #History of stroke/TIA ?Management per primary team Management of rest of the medical conditions as per primary team and other consultants. Thank you for the consult and allowing me to participate in the care of the patient. Cardiology will continue to follow. Silver bAad M.D. Interventional Cardiology Time Spent With Patient Time: Total time spent is greater than 50% in coordination of care (as documented) at patient's floor/unit and/or counseling patient:
--- NOTE | 2025-03-17 15:15 | PC.NURSE ---
Pt has not had a bm in 4 days. Gave prune juice this morning. Pt still has not had a bm. Called Dr. Dennis. New orders given
--- NOTE | 2025-03-17 16:32 | PC.NURSE ---
Called Dr. Dennis regarding note by Dr. Sheppard. Dr. Sheppard said to hold patient's lasix for today. Dr. Dennis said yes to hold lasix today and we will continue to monitor patient's electrolytes.
--- NOTE | 2025-03-17 16:53 | ESPR_ITS ---
Documentation for date of: 03/17/25 Subjective Subjective Interval history: Patient underwent upper endoscopy which showed multiple distal esophageal ulcers as well as GE junction ulcers Hemoglobin hematocrit 10.8 and 32.2 Exam Vital Signs Temp Pulse Resp BP Pulse Ox O2 Del Method O2 Flow Rate 97.8 F 60 16 121/71 96 Nasal Cannula 3 03/17/25 12:00 03/17/25 14:50 03/17/25 12:00 03/17/25 14:50 03/17/25 12:00 03/17/25 12:00 03/17/25 12:00 FiO2 40 03/17/25 04:00 Objective Labs 03/17/25 05:09 03/17/25 05:09 Labs: Laboratory Results - last 24 hr 03/17/25 05:09 WBC 6.7 D RBC 3.42 L Hgb 10.8 L Hct 32.2 L MCV 94 MCH 31.6 MCHC 33.5 RDW Std Deviation 48.5 H Plt Count 176 Neut % (Auto) 64 Lymph % (Auto) 15 [place] % (Auto) 20 H Eos % (Auto) 1 Baso % (Auto) 0 Neut # (Auto) 4.3 Lymph # (Auto) 1.0 [place] # (Auto) 1.3 H Eos # (Auto) 0.0 Baso # (Auto) 0.0 Immature Gran # (Auto) 0.02 H Absolute Nucleated RBC 0.00 Immature Gran % 0 Nucleated RBC % 0 Sodium 135 L Potassium 3.6 D Chloride 94 L Carbon Dioxide 28.5 Anion Gap 13 BUN 23 Creatinine 1.6 H Estim Creat Clear Calc 56.2 L eGFR 48 L BUN/Creatinine Ratio 14 Glucose 142 H Calculated Osmolality 275 Calcium 9.1 Corrected Calcium 9.1 Total Bilirubin 0.6 AST 62 H ALT 27 Alkaline Phosphatase 73 Total Protein 7.6 Albumin 4.1 Globulin 3.5 Albumin/Globulin Ratio 1.2 Impressions Impression: Coffee-ground emesis secondary to multiple distal esophageal ulcers and GE junction ulcers Continue Protonix and follow CBC Advance diet as tolerated Assessment & Plan A&P Narrative Mr. Fields is a 64-year-old male with past medical history of hypertension, hyperlipidemia, atrial fibrillation, third-degree heart block status post pacemaker placement at [facility], Stroke/TIA, alcohol use and prediabetes who presented to [facility] emergency department with a chief complaint of difficulty walking. Patient found to have bilateral lower extremity edema, admitted for new onset CHF and possible acute decompensated heart failure. #Acute decompensated heart failure #New onset mild systolic CHF exacerbation Patient presented with bilateral lower extremity edema, endorses some shortness of breath currently on high flow nasal cannula. Patient has longstanding history of hypertension, prediabetes, history of atrial fibrillation with history of third-degree heart block with status post pacemaker placement at [facility]. History of significant alcohol use in the past BNP on presentation 569 Recommendations: - Continue diuresis with Lasix 40 mg IV twice daily - Strict intake and output, daily weight, fluid restriction 1500 cc - Echocardiogram is pending to assess LV RV function - Obtain iron panel, consider IV iron if patient has low iron reserve 03/17/25 Patient diuresing well with lasix 40 mg IV TID. BUN is 23 and creatinine is 1.6 today. Please hold lasix for today given the CLARITA. Replace KCL 60 meq/l 40+20 orally, magnesium 1.6 replace 6 grams magnesium sulfate iv. Keep K greater than 4 and Mg greater than 2 at all times. EF is mildly reduced at 45-50%, will start GDMT once agressive diuresis is completed if kidney function and BP are stable. Echo done 03/16/25 showed Overall poor quality images and suboptimal study. 2. Left ventricle size is mildly enlarged and systolic showe function is mildly reduced. Estimated ejection fraction is 45-50%. There is stage 1 diastolic dysfunction. 3. Right ventricle chamber size is mildly enlarged and systolic function is normal. Estimated RVSP is 32 mmHg with RAP 8. 4. There is mild mitral and tricuspid valve regurgitation. Mild AV sclerosis without stenosis. 5. The left atrium is severely enlarged. The right atrium is severely enlarged. 6. Dilated cardiomyopathy. #NSTEMI type II versus type I Patient denies any chest pain, troponin on presentation 0.079 which downtrended to 0.057 EKG was negative for any acute ST-T changes Patient's troponin elevation likely secondary to demand ischemia ?Monitor for chest pain #Atrial fibrillation Patient has history of atrial fibrillation, on Eliquis at home Patient had brown-colored emesis in the ED, concern of GI bleed, GI bleed workup initiated by primary team. [id number] score: 5 points ?Agree with holding Eliquis in setting of GI bleed ?Keep potassium greater than 4 and magnesium greater than 2 at all times #Third-degree heart block status post pacemaker placement Patient has history of pacemaker placement, was transferred from [facility] in the past to [facility] where apparently the pacemaker was placed. Will review previous records. #Hypertension Home dose of spironolactone was resumed, monitor blood pressure #Hyperlipidemia Lipid panel shows cholesterol 132, triglycerides 37, LDL 54, HDL 71 Per ASCVD risk algorithm, atorvastatin recommended - Will start on atorvastatin 40 mg at bedtime #GI bleed workup #Prediabetes #History of significant alcohol use in the past #History of stroke/TIA ?Management per primary team Management of rest of the medical conditions as per primary team and other consultants. Thank you for the consult and allowing me to participate in the care of the patient. Cardiology will continue to follow. Silver Abad M.D. Interventional Cardiology Time Spent With Patient Time: Total time spent is greater than 50% in coordination of care (as documented) at patient's floor/unit and/or counseling patient:
[2025-03-17] MEDS: ATORVASTATIN CALCIUM 20 MG TABLET 40 MG PO (20:39)
[2025-03-17] MEDS: PANTOPRAZOLE 40 MG TABLET PO (20:40)
[2025-03-17] MEDS: cefTRIAXone/D5w 1gm IV premix 1 GM/50 ML BAG IV (20:40)
[2025-03-18] VITALS (9 sets, daily range): BP systolic 143–164; BP diastolic 76–97; PULSE 60–70; RESP 13–94; TEMP 36.4–37.1; O2SAT 96–98; BMI 44.1
[2025-03-18 07:07] LABS: Basophils # (Auto) 0.1 Thou/mm3 (0.0-0.2); Basophils % (Auto) 1 % (0-2.5); Eosinophils # (Auto) 0.1 Thou/mm3 (0.0-0.5); Eosinophils % (Auto) 2 % (0-10); Hematocrit 36.4 % (41.0-53.0); Hemoglobin 12.2 g/dL (13.5-16.0); Immature Granulocytes Auto 0.01 Thou/mm3 (0.00-0.00); Lymphocytes # (Auto) 2.7 Thou/mm3 (1.0-4.8); Lymphocytes % (Auto) 30 % (10-50); Mean Corpuscular HGB Conc 33.5 g/dl (31.0-37.0); Mean Corpuscular Hemoglobin 32.4 pg (25.0-35.0); Mean Corpuscular Volume 97 fL (80-100); Monocytes # (Auto) 1.5 Thou/mm3 (0.0-0.8); Monocytes % (Auto) 17 % (0-12); Neutrophils # (Auto) 4.6 Thou/mm3 (1.8-7.7); Neutrophils % (Auto) 50 % (37-80); Nucleated Red Blood Cell # 0.00 Thou/mm3 (0.00-0.00); Nucleated Red Blood Cell % 0 /100 WBC (0); Platelet Count 206 Thou/mm3 (140-440); RDW Standard Deviation 51.8 fL (35.1-43.9); Red Blood Count 3.77 Miln/mm3 (4.50-5.90); White Blood Count 9.1 Thou/mm3 (3.8-10.6)
[2025-03-18 07:24] LABS: Alanine Aminotransferase 31 U/L (10-49); Albumin, Serum 4.3 gm/dL (3.4-4.8); Albumin/Globulin Ratio 1.2 (1.2-2.2); Alkaline Phosphatase 76 U/L (46-116); Anion Gap 9 (7-16); Aspartate Amino Transferase 55 U/L (0-34); BUN/Creatinine Ratio 14 Ratio (12-20); Bilirubin,Total 0.5 mg/dL (0.3-1.2); Blood Urea Nitrogen 26 mg/dL (9-23); Calcium 9.3 mg/dL (8.3-10.6); Calcium (Corrected) 9.3 mg/dL (8.5-10.1); Carbon Dioxide 32.3 mMol/L (20.0-31.0); Chloride 96 mMol/L (98-107); Creatinine (Component) 1.8 mg/dL (0.6-1.3); Estimated Creatinine Clearance 49.0 mL/min (>60); Globulin 3.7 gm/dL (2.3-3.5); Glucose 115 mg/dL (74-106); Osmolality,Calculated 279 (275-295); Potassium 3.5 mMol/L (3.4-5.1); Sodium 137 mMol/L (136-145); Total Protein 8.0 gm/dL (5.7-8.2); eGFR 42 See Note
--- NOTE | 2025-03-18 07:54 | ESPR_ITS ---
<Statement entered by Catrachito Montiel MD - 03/18/25 18:24> I saw and examined patient personally and supervised PGY 1 resident, Dr. Mancuso with formulating a management plan. I agree with the documentation with the exceptions as listed below. Creatinine increased to 1.8 from 1.6, will give a diuretic holiday. Patient also underwent EGD on 03/18 which showed esophageal ulcer and gastritis. Shortness of breath and lower extremity edema much improved from admission. Will follow-up on renal function tomorrow. Anticipate discharge within next 24 to 48 hours. Plan of care discussed with Attending Dr. Margarita Montiel MD PGY 2 Disclaimer: This note was dictated by speech recognition. Minor errors in hedis nurse may be present due to voice recognition software. Documentation for date of: 03/18/25 Subjective Subjective Interval history: Patient seen and examined at bedside; no acute events overnight. Patient reports reduced leg swelling; had BM today, FOBT positive. Exam Vital Signs Temp Pulse Resp BP Pulse Ox O2 Del Method O2 Flow Rate 97.6 F 61 16 145/76 H 96 Room Air 3 03/18/25 04:00 03/18/25 04:00 03/18/25 04:00 03/18/25 04:00 03/18/25 04:00 03/18/25 04:00 03/17/25 16:00 FiO2 40 03/17/25 04:00 Narrative Exam General: A/O x3, no acute distress, well-nourished, well-developed. [place]- speaking only. Eyes: PERRL, EOMI. Anicteric, vision grossly intact. Ears: No ear pain, no ear discharge, Hearing grossly intact. Nose: No nasal discharge. Mouth/Throat: Moist mucous membranes, no redness, no lesions. Neck: Neck supple, non-tender, no cervical lymphadenopathy. Lungs: Clear IFEOMA to auscultation and percussion, No accessory muscle use. Cardio: Normal S1/S2, regular rhythm, no murmurs, no JVD or carotid bruits. Abdomen: Soft, distended non-tender, no palpable masses, peristalsis present, no guarding or rebound. Extremities: Symmetrical, no significant deformities, 1+ bilateral lower extremity pitting edema improving (only to ankles now) , non-tender, peripheral pulses present. Skin: No rashes, no lesions, warm to touch. Neuro: No focal neurological deficits. Psych: Cooperative, appropriate mood and effect. Objective Labs 03/19/25 05:39 03/19/25 05:39 Labs: Laboratory Results - last 24 hr 03/18/25 05:35 WBC 9.1 RBC 3.77 L Hgb 12.2 L Hct 36.4 L MCV 97 MCH 32.4 MCHC 33.5 RDW Std Deviation 51.8 H Plt Count 206 D Neut % (Auto) 50 Lymph % (Auto) 30 [place] % (Auto) 17 H Eos % (Auto) 2 Baso % (Auto) 1 Neut # (Auto) 4.6 Lymph # (Auto) 2.7 [place] # (Auto) 1.5 H Eos # (Auto) 0.1 Baso # (Auto) 0.1 Immature Gran # (Auto) 0.01 H Absolute Nucleated RBC 0.00 Immature Gran % 0 Nucleated RBC % 0 Sodium 137 Potassium 3.5 Chloride 96 L Carbon Dioxide 32.3 H Anion Gap 9 BUN 26 H Creatinine 1.8 H Estim Creat Clear Calc 49.0 L eGFR 42 L BUN/Creatinine Ratio 14 Glucose 115 H Calculated Osmolality 279 Calcium 9.3 Corrected Calcium 9.3 Total Bilirubin 0.5 AST 55 H ALT 31 Alkaline Phosphatase 76 Total Protein 8.0 Albumin 4.3 Globulin 3.7 H Albumin/Globulin Ratio 1.2 Quality Measures Quality Measures VTE prophylaxis Assessment & Plan Assessment Current Active Medications: Generic Name Dose Route Start Last Admin Trade Name Freq PRN Reason Stop Dose Admin Acetaminophen 650 mg 03/15/25 23:46 Acetaminophen 325 Mg Tablet PO 04/14/25 23:45 Q6H PRN Fever >100.4 Apixaban 5 mg 03/16/25 21:00 03/17/25 20:39 Apixaban 2.5 Mg Tablet PO 04/15/25 20:59 5 mg BID HANG Administration Aspirin 81 mg 03/16/25 09:00 03/17/25 09:15 Aspirin Ec 81 Mg Tabec PO 04/15/25 08:59 81 mg DAILY HANG Administration Atorvastatin Calcium 40 mg 03/17/25 21:00 03/17/25 20:39 Atorvastatin Calcium 20 Mg Tablet PO 04/16/25 20:59 40 mg HS HANG Administration Diazepam 5 mg 03/16/25 18:14 Diazepam Inj 5 Mg/Ml Vial 2 Ml IVP X1 PRN Breakthrough Agitation Folic Acid 1 mg 03/16/25 09:00 03/17/25 09:14 Folic Acid 1 Mg Tablet PO 04/15/25 08:59 1 mg QDAY HANG Administration Furosemide 40 mg 03/16/25 14:00 03/18/25 05:14 Furosemide Inj 10 Mg/Ml Vial 2 Ml IVP 04/15/25 13:59 Not Given TID HANG Ceftriaxone Sodium/Dextrose 1 gm in 50 mls @ 100 mls/hr 03/16/25 21:00 03/17/25 20:40 Rocephin/D5w 1gm Iv Premix IV 03/22/25 20:59 100 mls/hr QPM HANG Administration Lorazepam 0.5 mg 03/16/25 18:14 Lorazepam 0.5 Mg Tablet PO 03/21/25 18:13 Q4HR PRN CIWA Score 2-6 Lorazepam 1 mg 03/16/25 18:14 Lorazepam 0.5 Mg Tablet PO 03/21/25 18:13 Q4HR PRN CIWA SCORE 7-11 Lorazepam 2 mg 03/16/25 18:14 Lorazepam 0.5 Mg Tablet PO 03/21/25 18:13 Q4HR PRN CIWA SCORE 12-15 Pantoprazole Sodium 40 mg 03/17/25 21:00 03/17/25 20:40 Pantoprazole 40 Mg Tablet PO 04/16/25 20:59 40 mg BID HANG Administration Protocol Spironolactone 25 mg 03/16/25 09:00 03/17/25 09:15 Spironolactone 25 Mg Tablet PO 04/15/25 08:59 25 mg QDAY HANG Administration Thiamine HCl 100 mg 03/16/25 09:00 03/17/25 09:14 Thiamine 100 Mg Tablet PO 04/15/25 08:59 100 mg QDAY HANG Administration Plan Patient is 64-year-old male with PMH of HTN, HLD, A-fib and type 3 block status post pacemaker presented to the ED on 03/15/2025 with shortness of breath and weakness. Patient is a poor historian. Patient was admitted for CHF exacerbation, NSTEMI type II, and possible upper GI bleed. #AHRF secondary to #Newly-diagnosed CHF #Hyponatremia Patient didn't take BP meds over last few days; bilateral lower extremity edema on exam, BNP 569 on admission, CXR showed CHF, echo 10/01/20 showed EF 55% Na on admission 124, today was 128; Cl on admission 92, today was 94 Likely hypervolemic hyponatremia in setting of CHF and volume overload Plan: Hold Lasix due to improved fluid status Spironolactone 25 mg daily Fluid restriction 1500 mL, Strict I&O CPAP at bedtime Echo taken, showed EF of 45 to 50%, stage I diastolic dysfunction, and RVSP of 32 Cardiology consulted: Recommended to keep diuresing the patient and send iron panel Continue to monitor sodium level #Elevated Troponins (possibly representing end organ damage) Secondary to #Hypertensive emergency, resolved #NSTEMI Type I vs II BP on admission- 181/115; Troponin on admission 0.079, down trended to 0.057 EKG showed electronic ventricular pacemaker with a rate of 63, QTc 431, no acute ST segment changes Plan: Continue to monitor BP Aspirin 81 mg daily Diuresis as above #Coffee-ground emesis #Upper GI Bleed? #Acute Normocytic Anemia 1 episode of brown-colored emesis in the ED; Admission Hgb 11.3, MCV 94 Hgb 03/16/25- 10.8 Plan: Fecal occult blood ordered GI consulted, status post EGD that showed esophageal ulcer and gastritis. GI advanced the diet Advance diet as tolerated to peptic ulcer disease diet Transfuse if hemoglobin below 7 #UTI On admission- urine: 1+ blood, 6 RBC, WBC 118, bacteria 2+, leukocyte esterase positive Ucx shows E coli sensitive to ceftriaxone Bcx shows staph haemolyticus Plan: Ceftriaxone 1 g daily #Diabetes Previous A1c- 9.8; A1c on admission 6.3 Plan: Trend blood glucose #AUD Patient admits to drinking 3 to 4 beers a day currently. Plan: Thiamine Folate #Hx of CVA Previous MRI 09/29/20 shows old infarcts Plan: Monitor for new-onset neurological changes Aspirin 81 daily #Hyperlipidemia? Patient taking atorvastatin 80 at home, lipid panel negative Plan: Consider restarting home medication #AFib #Third degree heart block Pacemaker placed at [facility]; on eliquis at home. FOBT positive. Plan: Holding anticoagulation in the presence of suspected upper GI bleed #Lactic Acidosis (Resolved) Patient presented with a lactate of 3.0, downtrended to 1.9 DVT: Holding until confirmation of negative fecal occult blood after episode of brown emesis GI: Protonix 40 BID Diet: N.p.o. IV lines: PIVs Vincent: In place Code status: Full code This case was discussed with my attending physician, Dr. Ulrich, and senior resident, Dr. Montiel. Shelton Mancuso, PGY1 Attending Provider Attestation/Addendum 64-year-old male patient with hypertension, atrial fibrillation AV block status post pacemaker at [facility] history of CVA, alcohol use was admitted for respiratory failure secondary to CHF. He has UTI and also presented with upper GI bleed endoscopy showed esophageal ulcers. The patient is currently on PPI. He takes Eliquis for atrial fibrillation. Continue current medical management. Monitor H&H. Repeat EKG troponin if he has chest pain. Most likely has type II NSTEMI. I discussed with and supervised the resident physician who took care of this patient. I agree with the assessment and plan as above.
[2025-03-18] MEDS: SPIRONOLACTONE 25 MG TABLET PO (08:13)
[2025-03-18] MEDS: PANTOPRAZOLE 40 MG TABLET PO ×2 (08:13→21:18)
[2025-03-18] MEDS: APIXABAN 2.5 MG TABLET 5 MG PO ×2 (08:14→21:18)
[2025-03-18] MEDS: FOLIC ACID 1 MG TABLET PO (08:14)
[2025-03-18] MEDS: POTASSIUM CHL 10 mEq IVPB 10 MEQ/100 ML BAG 100 MEQ IV (08:14)
[2025-03-18] MEDS: ASPIRIN EC 81 MG TABEC PO (08:14)
[2025-03-18] MEDS: THIAMINE 100 MG TABLET PO (08:14)
[2025-03-18 08:36] LABS: Magnesium 2.1 mg/dL (1.6-2.6)
[2025-03-18] MEDS: POTASSIUM CHL 10 mEq IVPB 10 MEQ/100 ML BAG 50 MEQ IV (09:45)
--- NOTE | 2025-03-18 10:48 | ESPR_ITS ---
Documentation for date of: 03/18/25 Subjective Subjective Interval history: Patient seen examined at bedside, niece and family at bedside. Patient currently complains of bilateral lower extremity weakness and constipation. Otherwise shortness of breath have improved remarkably, currently patient on room air saturating well. Patient on Lasix 40 mg IV 3 times daily, received 2 doses yesterday, creatinine uptrending to 1.8 Lasix being held this morning, patient is also on spironolactone. Recommend diuretic holiday. Counseled patient at bedside regarding alcohol use, advised patient to abstain from alcohol use. Exam Vital Signs Temp Pulse Resp BP Pulse Ox O2 Del Method O2 Flow Rate 97.7 F 70 18 164/84 H 96 Room Air 3 03/18/25 08:00 03/18/25 09:41 03/18/25 09:41 03/18/25 08:13 03/18/25 08:00 03/18/25 08:00 03/17/25 16:00 FiO2 40 03/17/25 04:00 Narrative Exam General: Awake and in no acute distress. Conversational and non-toxic appearing. HEENT: Normocephalic, atraumatic, mucous membranes moist. On room air. Heart: Regular rate and rhythm, no murmurs. Lungs: Clear to auscultation with no wheezing or crackles. Abdomen: Soft, obese, distended, nontender, positive bowel sounds. No guarding or rebound tenderness. Neurologic: Alert and oriented x3, no gross neurological deficit, and patient able to move all 4 extremities. Extremities: 1+ bilateral lower extremity edema Skin: No rash or ecchymoses. Objective Labs 03/20/25 05:02 03/20/25 05:02 Labs: Laboratory Results - last 24 hr 03/18/25 05:35 WBC 9.1 RBC 3.77 L Hgb 12.2 L Hct 36.4 L MCV 97 MCH 32.4 MCHC 33.5 RDW Std Deviation 51.8 H Plt Count 206 D Neut % (Auto) 50 Lymph % (Auto) 30 [place] % (Auto) 17 H Eos % (Auto) 2 Baso % (Auto) 1 Neut # (Auto) 4.6 Lymph # (Auto) 2.7 [place] # (Auto) 1.5 H Eos # (Auto) 0.1 Baso # (Auto) 0.1 Immature Gran # (Auto) 0.01 H Absolute Nucleated RBC 0.00 Immature Gran % 0 Nucleated RBC % 0 Sodium 137 Potassium 3.5 Chloride 96 L Carbon Dioxide 32.3 H Anion Gap 9 BUN 26 H Creatinine 1.8 H Estim Creat Clear Calc 49.0 L eGFR 42 L BUN/Creatinine Ratio 14 Glucose 115 H Calculated Osmolality 279 Calcium 9.3 Corrected Calcium 9.3 Magnesium 2.1 Total Bilirubin 0.5 AST 55 H ALT 31 Alkaline Phosphatase 76 Total Protein 8.0 Albumin 4.3 Globulin 3.7 H Albumin/Globulin Ratio 1.2 Quality Measures Quality Measures VTE prophylaxis Assessment & Plan Assessment Current Active Medications: Generic Name Dose Route Start Last Admin Trade Name Freq PRN Reason Stop Dose Admin Acetaminophen 650 mg 03/15/25 23:46 Acetaminophen 325 Mg Tablet PO 04/14/25 23:45 Q6H PRN Fever >100.4 Apixaban 5 mg 03/16/25 21:00 03/18/25 08:14 Apixaban 2.5 Mg Tablet PO 04/15/25 20:59 5 mg BID HANG Administration Aspirin 81 mg 03/16/25 09:00 03/18/25 08:14 Aspirin Ec 81 Mg Tabec PO 04/15/25 08:59 81 mg DAILY HANG Administration Atorvastatin Calcium 40 mg 03/17/25 21:00 03/17/25 20:39 Atorvastatin Calcium 20 Mg Tablet PO 04/16/25 20:59 40 mg HS HANG Administration Diazepam 5 mg 03/16/25 18:14 Diazepam Inj 5 Mg/Ml Vial 2 Ml IVP X1 PRN Breakthrough Agitation Folic Acid 1 mg 03/16/25 09:00 03/18/25 08:14 Folic Acid 1 Mg Tablet PO 04/15/25 08:59 1 mg QDAY HANG Administration Furosemide 40 mg 03/16/25 14:00 03/18/25 05:14 Furosemide Inj 10 Mg/Ml Vial 2 Ml IVP 04/15/25 13:59 Not Given On Hold: 03/18/25 08:11 TID HANG Gabapentin 300 mg 03/18/25 10:15 Gabapentin 300 Mg Capsule PO 04/17/25 10:14 QDAY HANG Ceftriaxone Sodium/Dextrose 1 gm in 50 mls @ 100 mls/hr 03/16/25 21:00 03/17/25 20:40 Rocephin/D5w 1gm Iv Premix IV 03/22/25 20:59 100 mls/hr QPM HANG Administration Potassium Chloride 10 meq in 100 mls @ 100 mls/hr 03/18/25 08:02 03/18/25 09:45 Kcl Ivpb IV 03/18/25 12:01 50 mls/hr Q1H HANG Administration Lorazepam 0.5 mg 03/16/25 18:14 Lorazepam 0.5 Mg Tablet PO 03/21/25 18:13 Q4HR PRN CIWA Score 2-6 Lorazepam 1 mg 03/16/25 18:14 Lorazepam 0.5 Mg Tablet PO 03/21/25 18:13 Q4HR PRN CIWA SCORE 7-11 Lorazepam 2 mg 03/16/25 18:14 Lorazepam 0.5 Mg Tablet PO 03/21/25 18:13 Q4HR PRN CIWA SCORE 12-15 Pantoprazole Sodium 40 mg 03/17/25 21:00 03/18/25 08:13 Pantoprazole 40 Mg Tablet PO 04/16/25 20:59 40 mg BID HANG Administration Protocol Spironolactone 25 mg 03/16/25 09:00 03/18/25 08:13 Spironolactone 25 Mg Tablet PO 04/15/25 08:59 25 mg QDAY HANG Administration Thiamine HCl 100 mg 03/16/25 09:00 03/18/25 08:14 Thiamine 100 Mg Tablet PO 04/15/25 08:59 100 mg QDAY HANG Administration Plan Mr. Fields is a 64-year-old male with past medical history of hypertension, hyperlipidemia, atrial fibrillation, third-degree heart block status post pacemaker placement at [facility], Stroke/TIA, alcohol use and prediabetes who presented to [facility] emergency department with a chief complaint of difficulty walking. Patient found to have bilateral lower extremity edema, admitted for new onset CHF and possible acute decompensated heart failure. #Acute decompensated heart failure #New onset mild systolic CHF exacerbation #Heart failure with mildly reduced ejection fraction, EF 45 to 50%, 03/16/2025 #Dilated cardiomyopathy Patient presented with bilateral lower extremity edema, endorses some shortness of breath currently on high flow nasal cannula. Patient has longstanding history of hypertension, prediabetes, history of atrial fibrillation with history of third-degree heart block with status post pacemaker placement at [facility]. History of significant alcohol use in the past BNP on presentation 569 03/18-Patient diuresed with Lasix 40 3 times daily, net hospital negative -5 L, had CLARITA 03/17 and diuresis was continued, creatinine up trended to 1.8 today Echo done 03/16/25 showed Overall poor quality images and suboptimal study. 2. Left ventricle size is mildly enlarged and systolic showe function is mildly reduced. Estimated ejection fraction is 45-50%. There is stage 1 diastolic dysfunction. 3. Right ventricle chamber size is mildly enlarged and systolic function is normal. Estimated RVSP is 32 mmHg with RAP 8. 4. There is mild mitral and tricuspid valve regurgitation. Mild AV sclerosis without stenosis. 5. The left atrium is severely enlarged. The right atrium is severely enlarged. 6. Dilated cardiomyopathy. Recommendations: - Recommend diuretic holiday: Hold Lasix and spironolactone - Strict intake and output, daily weight, fluid restriction 1500 cc - Introduce GDMT once CLARITA has resolved and blood pressures permissible. - Obtain iron panel, consider IV iron if patient has low iron reserve #NSTEMI type II, demand ischemia Patient denies any chest pain, troponin on presentation 0.079 which downtrended to 0.057 EKG was negative for any acute ST-T changes Patient's troponin elevation likely secondary to demand ischemia - Monitor for chest pain - Continue aspirin and atorvastatin. Consider holding aspirin if at high risk of GI bleed per gastroenterology and continue Eliquis. - Patient will need outpatient ischemia workup for CAD #Atrial fibrillation Patient has history of atrial fibrillation, on Eliquis at home Patient had brown-colored emesis in the ED, concern of GI bleed, GI bleed workup initiated by primary team. [id number] score: 5 points ?Continue Eliquis ?Keep potassium greater than 4 and magnesium greater than 2 at all times #Third-degree heart block status post pacemaker placement Patient has history of pacemaker placement, was transferred from [facility] in the past to [facility] where apparently the pacemaker was placed. #Hypertension Monitor blood pressure, introduce GDMT as blood pressure is permissible and CLARITA resolves. ?Recommend sacubitril?valsartan, beta-henrik #Hyperlipidemia Lipid panel shows cholesterol 132, triglycerides 37, LDL 54, HDL 71 Per ASCVD risk algorithm, atorvastatin recommended - Continue atorvastatin 40 mg at bedtime #Upper GI bleed, esophageal ulcers #Nonbleeding duodenal ulcer [place] class III #Acute kidney injury #Prediabetes #Alcohol dependence #History of stroke/TIA ?Management per primary team Thank you for the consult and allowing to participate in the care of the patient. Cardiology will continue to follow. Case discussed with Attending Physician Dr. Silver Terrazas MD Internal Medicine PGY-2 Disclaimer: This note was dictated by speech recognition. Minor errors in gallery or museum guide may be present due to voice recognition software. Attending Provider Attestation/Addendum I have personally seen and examined the patient separately on the above date of service and discussed the plan of care with the resident. I reviewed the resident Dr. Agustín Terrazas consultation progress note and agree with the resident findings and plan in the note above and have also edited the documentation to reflect my findings and plan. Silver Abad M.D. Interventional Cardiology
[2025-03-18] MEDS: GABAPENTIN 300 MG CAPSULE PO (10:56)
[2025-03-18] MEDS: POTASSIUM CHL 10 mEq IVPB 10 MEQ/100 ML BAG 75 MEQ IV ×2 (11:54→13:52)
[2025-03-18 16:20] LABS: OBS QC OK? Yes; Occult Blood, Stool Positive (Negative)
--- NOTE | 2025-03-18 18:14 | ESPR_ITS ---
Documentation for date of: 03/18/25 Subjective Subjective Interval history: Hemoglobin hematocrit 12.2 and 36.4 and a platelet count of 26,000 Exam Vital Signs Temp Pulse Resp BP Pulse Ox O2 Del Method O2 Flow Rate 97.7 F 62 18 161/83 H 98 Room Air 3 03/18/25 16:00 03/18/25 17:38 03/18/25 17:38 03/18/25 16:00 03/18/25 16:00 03/18/25 12:00 03/17/25 16:00 FiO2 40 03/17/25 04:00 Objective Labs 03/18/25 05:35 03/18/25 05:35 Labs: Laboratory Results - last 24 hr 03/18/25 03/18/25 05:35 13:40 WBC 9.1 RBC 3.77 L Hgb 12.2 L Hct 36.4 L MCV 97 MCH 32.4 MCHC 33.5 RDW Std Deviation 51.8 H Plt Count 206 D Neut % (Auto) 50 Lymph % (Auto) 30 [place] % (Auto) 17 H Eos % (Auto) 2 Baso % (Auto) 1 Neut # (Auto) 4.6 Lymph # (Auto) 2.7 [place] # (Auto) 1.5 H Eos # (Auto) 0.1 Baso # (Auto) 0.1 Immature Gran # (Auto) 0.01 H Absolute Nucleated RBC 0.00 Immature Gran % 0 Nucleated RBC % 0 Sodium 137 Potassium 3.5 Chloride 96 L Carbon Dioxide 32.3 H Anion Gap 9 BUN 26 H Creatinine 1.8 H Estim Creat Clear Calc 49.0 L eGFR 42 L BUN/Creatinine Ratio 14 Glucose 115 H Calculated Osmolality 279 Calcium 9.3 Corrected Calcium 9.3 Magnesium 2.1 Total Bilirubin 0.5 AST 55 H ALT 31 Alkaline Phosphatase 76 Total Protein 8.0 Albumin 4.3 Globulin 3.7 H Albumin/Globulin Ratio 1.2 Stool Occult Blood Positive A Impressions Impression: Distal esophageal ulcers GE junction ulcers continue current management Assessment & Plan A&P Narrative Mr. Fields is a 64-year-old male with past medical history of hypertension, hyperlipidemia, atrial fibrillation, third-degree heart block status post pacemaker placement at [facility], Stroke/TIA, alcohol use and prediabetes who presented to [facility] emergency department with a chief complaint of difficulty walking. Patient found to have bilateral lower extremity edema, admitted for new onset CHF and possible acute decompensated heart failure. #Acute decompensated heart failure #New onset mild systolic CHF exacerbation Patient presented with bilateral lower extremity edema, endorses some shortness of breath currently on high flow nasal cannula. Patient has longstanding history of hypertension, prediabetes, history of atrial fibrillation with history of third-degree heart block with status post pacemaker placement at [facility]. History of significant alcohol use in the past BNP on presentation 569 Recommendations: - Continue diuresis with Lasix 40 mg IV twice daily - Strict intake and output, daily weight, fluid restriction 1500 cc - Echocardiogram is pending to assess LV RV function - Obtain iron panel, consider IV iron if patient has low iron reserve 03/17/25 Patient diuresing well with lasix 40 mg IV TID. BUN is 23 and creatinine is 1.6 today. Please hold lasix for today given the CLARITA. Replace KCL 60 meq/l 40+20 orally, magnesium 1.6 replace 6 grams magnesium sulfate iv. Keep K greater than 4 and Mg greater than 2 at all times. EF is mildly reduced at 45-50%, will start GDMT once agressive diuresis is completed if kidney function and BP are stable. Echo done 03/16/25 showed Overall poor quality images and suboptimal study. 2. Left ventricle size is mildly enlarged and systolic showe function is mildly reduced. Estimated ejection fraction is 45-50%. There is stage 1 diastolic dysfunction. 3. Right ventricle chamber size is mildly enlarged and systolic function is normal. Estimated RVSP is 32 mmHg with RAP 8. 4. There is mild mitral and tricuspid valve regurgitation. Mild AV sclerosis without stenosis. 5. The left atrium is severely enlarged. The right atrium is severely enlarged. 6. Dilated cardiomyopathy. #NSTEMI type II versus type I Patient denies any chest pain, troponin on presentation 0.079 which downtrended to 0.057 EKG was negative for any acute ST-T changes Patient's troponin elevation likely secondary to demand ischemia ?Monitor for chest pain #Atrial fibrillation Patient has history of atrial fibrillation, on Eliquis at home Patient had brown-colored emesis in the ED, concern of GI bleed, GI bleed workup initiated by primary team. [id number] score: 5 points ?Agree with holding Eliquis in setting of GI bleed ?Keep potassium greater than 4 and magnesium greater than 2 at all times #Third-degree heart block status post pacemaker placement Patient has history of pacemaker placement, was transferred from [facility] in the past to [facility] where apparently the pacemaker was placed. Will review previous records. #Hypertension Home dose of spironolactone was resumed, monitor blood pressure #Hyperlipidemia Lipid panel shows cholesterol 132, triglycerides 37, LDL 54, HDL 71 Per ASCVD risk algorithm, atorvastatin recommended - Will start on atorvastatin 40 mg at bedtime #GI bleed workup #Prediabetes #History of significant alcohol use in the past #History of stroke/TIA ?Management per primary team Management of rest of the medical conditions as per primary team and other consultants. Thank you for the consult and allowing me to participate in the care of the patient. Cardiology will continue to follow. Silver Abad M.D. Interventional Cardiology Time Spent With Patient Time: Total time spent is greater than 50% in coordination of care (as documented) at patient's floor/unit and/or counseling patient:
[2025-03-18] MEDS: ATORVASTATIN CALCIUM 20 MG TABLET 40 MG PO (21:18)
[2025-03-18] MEDS: cefTRIAXone/D5w 1gm IV premix 1 GM/50 ML BAG IV (21:32)
[2025-03-19] VITALS (11 sets, daily range): BP systolic 123–163; BP diastolic 72–92; PULSE 60–103; RESP 13–99; TEMP 36.3–36.8; O2SAT 96–100; BMI 43.4
[2025-03-19 05:58] LABS: Basophils # (Auto) 0.1 Thou/mm3 (0.0-0.2); Basophils % (Auto) 1 % (0-2.5); Eosinophils # (Auto) 0.3 Thou/mm3 (0.0-0.5); Eosinophils % (Auto) 3 % (0-10); Hematocrit 35.4 % (41.0-53.0); Hemoglobin 12.0 g/dL (13.5-16.0); Immature Granulocytes Auto 0.02 Thou/mm3 (0.00-0.00); Lymphocytes # (Auto) 2.5 Thou/mm3 (1.0-4.8); Lymphocytes % (Auto) 30 % (10-50); Mean Corpuscular HGB Conc 33.9 g/dl (31.0-37.0); Mean Corpuscular Hemoglobin 32.8 pg (25.0-35.0); Mean Corpuscular Volume 97 fL (80-100); Monocytes # (Auto) 1.5 Thou/mm3 (0.0-0.8); Monocytes % (Auto) 18 % (0-12); Neutrophils # (Auto) 4.0 Thou/mm3 (1.8-7.7); Neutrophils % (Auto) 48 % (37-80); Nucleated Red Blood Cell # 0.00 Thou/mm3 (0.00-0.00); Nucleated Red Blood Cell % 0 /100 WBC (0); Platelet Count 196 Thou/mm3 (140-440); RDW Standard Deviation 51.3 fL (35.1-43.9); Red Blood Count 3.66 Miln/mm3 (4.50-5.90); White Blood Count 8.3 Thou/mm3 (3.8-10.6)
[2025-03-19 06:21] LABS: Alanine Aminotransferase 30 U/L (10-49); Albumin, Serum 4.0 gm/dL (3.4-4.8); Albumin/Globulin Ratio 1.2 (1.2-2.2); Alkaline Phosphatase 71 U/L (46-116); Anion Gap 9 (7-16); Aspartate Amino Transferase 43 U/L (0-34); BUN/Creatinine Ratio 14 Ratio (12-20); Bilirubin,Total 0.5 mg/dL (0.3-1.2); Blood Urea Nitrogen 20 mg/dL (9-23); Calcium 9.3 mg/dL (8.3-10.6); Calcium (Corrected) 9.3 mg/dL (8.5-10.1); Carbon Dioxide 29.7 mMol/L (20.0-31.0); Chloride 98 mMol/L (98-107); Creatinine (Component) 1.4 mg/dL (0.6-1.3); Estimated Creatinine Clearance 62.5 mL/min (>60); Globulin 3.4 gm/dL (2.3-3.5); Glucose 133 mg/dL (74-106); Osmolality,Calculated 278 (275-295); Potassium 4.0 mMol/L (3.4-5.1); Sodium 137 mMol/L (136-145); Total Protein 7.4 gm/dL (5.7-8.2); eGFR 56 See Note
[2025-03-19] MEDS: GABAPENTIN 300 MG CAPSULE PO (08:04)
[2025-03-19] MEDS: FOLIC ACID 1 MG TABLET PO (08:04)
[2025-03-19] MEDS: PANTOPRAZOLE 40 MG TABLET PO ×2 (08:04→20:39)
[2025-03-19] MEDS: APIXABAN 2.5 MG TABLET 5 MG PO ×2 (08:04→20:38)
[2025-03-19] MEDS: SPIRONOLACTONE 25 MG TABLET PO (08:04)
[2025-03-19] MEDS: THIAMINE 100 MG TABLET PO (08:05)
[2025-03-19 08:42] LABS: Magnesium 1.9 mg/dL (1.6-2.6); Phosphorous 3.5 mg/dL (2.4-5.1)
--- NOTE | 2025-03-19 09:17 | ESPR_ITS ---
Documentation for date of: 03/19/25 Subjective Subjective Interval history: Patient seen examined at bedside, saturating well on room air no current complaints. Patient has mildly reduced ejection fraction on echocardiogram, will start on metoprolol. Will consider Entresto in a.m. or outpatient once CLARITA resolves, kidney function is improving creatinine down trended to 1.4 today. Patient will be started on Bumex 1 mg p.o. daily also spironolactone dose increased to 25 mg on admission. Electrolytes reviewed, will replace magnesium. Exam Vital Signs Temp Pulse Resp BP Pulse Ox O2 Del Method O2 Flow Rate 98.0 F 103 H 20 163/85 H 100 Oxy Mask 4 03/19/25 04:00 03/19/25 08:04 03/19/25 07:04 03/19/25 08:04 03/19/25 04:00 03/19/25 04:00 03/19/25 04:00 FiO2 40 03/19/25 04:00 Narrative Exam General: Awake and in no acute distress. Conversational and non-toxic appearing. HEENT: Normocephalic, atraumatic, mucous membranes moist. On room air. Heart: Regular rate and rhythm, no murmurs. Lungs: Clear to auscultation with no wheezing or crackles. Abdomen: Soft, obese, distended, nontender, positive bowel sounds. No guarding or rebound tenderness. Neurologic: Alert and oriented x3, no gross neurological deficit, and patient able to move all 4 extremities. Extremities: Trace bilateral lower extremity edema Skin: No rash or ecchymoses. Objective Labs 03/20/25 05:02 03/20/25 05:02 Labs: Laboratory Results - last 24 hr 03/18/25 03/19/25 13:40 05:39 WBC 8.3 RBC 3.66 L Hgb 12.0 L Hct 35.4 L MCV 97 MCH 32.8 MCHC 33.9 RDW Std Deviation 51.3 H Plt Count 196 Neut % (Auto) 48 Lymph % (Auto) 30 [place] % (Auto) 18 H Eos % (Auto) 3 Baso % (Auto) 1 Neut # (Auto) 4.0 Lymph # (Auto) 2.5 [place] # (Auto) 1.5 H Eos # (Auto) 0.3 Baso # (Auto) 0.1 Immature Gran # (Auto) 0.02 H Absolute Nucleated RBC 0.00 Immature Gran % 0 Nucleated RBC % 0 Sodium 137 Potassium 4.0 D Chloride 98 Carbon Dioxide 29.7 Anion Gap 9 BUN 20 Creatinine 1.4 H Estim Creat Clear Calc 62.5 eGFR 56 L BUN/Creatinine Ratio 14 Glucose 133 H Calculated Osmolality 278 Calcium 9.3 Corrected Calcium 9.3 Phosphorus 3.5 Magnesium 1.9 Total Bilirubin 0.5 AST 43 H ALT 30 Alkaline Phosphatase 71 Total Protein 7.4 Albumin 4.0 Globulin 3.4 Albumin/Globulin Ratio 1.2 Stool Occult Blood Positive A Quality Measures Quality Measures VTE prophylaxis Assessment & Plan Assessment Current Active Medications: Generic Name Dose Route Start Last Admin Trade Name Freq PRN Reason Stop Dose Admin Acetaminophen 650 mg 03/15/25 23:46 Acetaminophen 325 Mg Tablet PO 04/14/25 23:45 Q6H PRN Fever >100.4 Apixaban 5 mg 03/16/25 21:00 03/19/25 08:04 Apixaban 2.5 Mg Tablet PO 04/15/25 20:59 5 mg BID HANG Administration Aspirin 81 mg 03/16/25 09:00 03/19/25 08:04 Aspirin Ec 81 Mg Tabec PO 04/15/25 08:59 Not Given DAILY HANG Atorvastatin Calcium 40 mg 03/17/25 21:00 03/18/25 21:18 Atorvastatin Calcium 20 Mg Tablet PO 04/16/25 20:59 40 mg HS HANG Administration Diazepam 5 mg 03/16/25 18:14 Diazepam Inj 5 Mg/Ml Vial 2 Ml IVP X1 PRN Breakthrough Agitation Folic Acid 1 mg 03/16/25 09:00 03/19/25 08:04 Folic Acid 1 Mg Tablet PO 04/15/25 08:59 1 mg QDAY HANG Administration Furosemide 40 mg 03/16/25 14:00 03/18/25 05:14 Furosemide Inj 10 Mg/Ml Vial 2 Ml IVP 04/15/25 13:59 Not Given On Hold: 03/18/25 08:11 TID HANG Gabapentin 300 mg 03/18/25 10:15 03/19/25 08:04 Gabapentin 300 Mg Capsule PO 04/17/25 10:14 300 mg QDAY HANG Administration Ceftriaxone Sodium/Dextrose 1 gm in 50 mls @ 100 mls/hr 03/16/25 21:00 03/18/25 21:32 Rocephin/D5w 1gm Iv Premix IV 03/22/25 20:59 100 mls/hr QPM HANG Administration Lorazepam 0.5 mg 03/16/25 18:14 Lorazepam 0.5 Mg Tablet PO 03/21/25 18:13 Q4HR PRN CIWA Score 2-6 Lorazepam 1 mg 03/16/25 18:14 Lorazepam 0.5 Mg Tablet PO 03/21/25 18:13 Q4HR PRN CIWA SCORE 7-11 Lorazepam 2 mg 03/16/25 18:14 Lorazepam 0.5 Mg Tablet PO 03/21/25 18:13 Q4HR PRN CIWA SCORE 12-15 Pantoprazole Sodium 40 mg 03/17/25 21:00 03/19/25 08:04 Pantoprazole 40 Mg Tablet PO 04/16/25 20:59 40 mg BID HANG Administration Protocol Sennosides 8.8 mg 03/18/25 12:38 Sennosides Syrup 8.8 Mg/5 Ml Udc PO 04/17/25 12:37 QDAY PRN CONSTIPATION Protocol Spironolactone 25 mg 03/16/25 09:00 03/19/25 08:04 Spironolactone 25 Mg Tablet PO 04/15/25 08:59 25 mg QDAY HANG Administration Thiamine HCl 100 mg 03/16/25 09:00 03/19/25 08:05 Thiamine 100 Mg Tablet PO 04/15/25 08:59 100 mg QDAY HANG Administration Plan Mr. Fields is a 64-year-old male with past medical history of hypertension, hyperlipidemia, atrial fibrillation, third-degree heart block status post pacemaker placement at [facility], Stroke/TIA, alcohol use and prediabetes who presented to [facility] emergency department with a chief complaint of difficulty walking. Patient found to have bilateral lower extremity edema, admitted for new onset CHF and possible acute decompensated heart failure. #Acute decompensated heart failure, improving #New onset mild systolic CHF exacerbation #Heart failure with mildly reduced ejection fraction, EF 45 to 50%, 03/16/2025 #Dilated cardiomyopathy Patient presented with bilateral lower extremity edema, endorses some shortness of breath currently on high flow nasal cannula. Patient has longstanding history of hypertension, prediabetes, history of atrial fibrillation with history of third-degree heart block with status post pacemaker placement at [facility]. History of significant alcohol use in the past BNP on presentation 569 03/18-Patient diuresed with Lasix 40 3 times daily, net hospital negative -5 L, had CLARITA 03/17 and diuresis was continued, creatinine up trended to 1.8 today Echo done 03/16/25 showed Overall poor quality images and suboptimal study. 2. Left ventricle size is mildly enlarged and systolic showe function is mildly reduced. Estimated ejection fraction is 45-50%. There is stage 1 diastolic dysfunction. 3. Right ventricle chamber size is mildly enlarged and systolic function is normal. Estimated RVSP is 32 mmHg with RAP 8. 4. There is mild mitral and tricuspid valve regurgitation. Mild AV sclerosis without stenosis. 5. The left atrium is severely enlarged. The right atrium is severely enlarged. 6. Dilated cardiomyopathy. Recommendations: - Recommend diuretic holiday: Continue to hold Lasix and spironolactone - Strict intake and output, daily weight, fluid restriction 1500 cc - Started on metoprolol 25 mg daily, will consider adding Entresto in a.m. once CLARITA resolves. - Obtain iron panel, consider IV iron if patient has low iron reserve #NSTEMI type II, demand ischemia Patient denies any chest pain, troponin on presentation 0.079 which downtrended to 0.057 EKG was negative for any acute ST-T changes Patient's troponin elevation likely secondary to demand ischemia - Monitor for chest pain - Continue aspirin and atorvastatin - Patient will need outpatient ischemia workup for CAD #Atrial fibrillation Patient has history of atrial fibrillation, on Eliquis at home Patient had brown-colored emesis in the ED, concern of GI bleed, GI bleed workup initiated by primary team. [id number] score: 5 points ?Continue Eliquis ?Keep potassium greater than 4 and magnesium greater than 2 at all times #Third-degree heart block status post pacemaker placement Patient has history of pacemaker placement, was transferred from [facility] in the past to [facility] where apparently the pacemaker was placed. #Hypertension Monitor blood pressure, introduce GDMT as blood pressure is permissible and CLARITA resolves. ?Recommend sacubitril?valsartan, beta-henrik #Hyperlipidemia Lipid panel shows cholesterol 132, triglycerides 37, LDL 54, HDL 71 Per ASCVD risk algorithm, atorvastatin recommended - Continue atorvastatin 40 mg at bedtime #Upper GI bleed, esophageal ulcers #Nonbleeding duodenal ulcer [place] class III #Acute kidney injury #Prediabetes #Alcohol dependence #History of stroke/TIA ?Management per primary team Thank you for the consult and allowing to participate in the care of the patient. Cardiology will continue to follow. Case discussed with Attending Physician Dr. Silver Terrazas MD Internal Medicine PGY-2 Disclaimer: This note was dictated by speech recognition. Minor errors in institutional commodity analyst may be present due to voice recognition software. Attending Provider Attestation/Addendum I have personally seen and examined the patient separately on the above date of service and discussed the plan of care with the resident. I reviewed the resident Dr. Agustín Terrazas consultation progress note and agree with the resident findings and plan in the note above and have also edited the documentation to reflect my findings and plan. Silver Abad M.D. Interventional Cardiology
--- NOTE | 2025-03-19 11:42 | PC.SS ---
Patient is a 64 year old male presenting to the hospital for CHF exacerbation. [employer] [employer] met with patient at bedside, introduced self, role and reason for visit. Patient is Tajik speaking. Patient confirmed demographic information and stated that his alternate decision maker is his sister Lisa [phone]. Patient stated he does not use or have DME at home. Patient stated he is retired, PCP is Dr. Mckinley at [facility] and his last appointment was a year ago. Patients pharmacy is [facility] on [address]. Patient stated that once medically clear he would like to return home and stated he may need transportation. PCP: Dr. Mckinley Decision maker: Lisa [phone] D/c: home
[2025-03-19] MEDS: METOPROLOL SUCCINATE XL 25 MG TABCR PO (12:47)
--- NOTE | 2025-03-19 13:15 | ESPR_ITS ---
Documentation for date of: 03/19/25 Subjective Subjective Interval history: Patient seen and examined at bedside; no acute events overnight. Will add rest of GDMT as CLARITA improves.. Exam Vital Signs Temp Pulse Resp BP Pulse Ox O2 Del Method O2 Flow Rate 98.1 F 92 17 157/87 H 96 Room Air 4 03/19/25 12:00 03/19/25 12:47 03/19/25 12:00 03/19/25 12:47 03/19/25 12:00 03/19/25 12:00 03/19/25 04:00 FiO2 40 03/19/25 04:00 Narrative Exam General: A/O x3, no acute distress, well-nourished, well-developed. Ethiopian- speaking only. Eyes: PERRL, EOMI. Anicteric, vision grossly intact. Ears: No ear pain, no ear discharge, Hearing grossly intact. Nose: No nasal discharge. Mouth/Throat: Moist mucous membranes, no redness, no lesions. Neck: Neck supple, non-tender, no cervical lymphadenopathy. Lungs: Clear IFEOMA to auscultation and percussion, No accessory muscle use. Cardio: Normal S1/S2, regular rhythm, no murmurs, no JVD or carotid bruits. Abdomen: Soft, distended non-tender, no palpable masses, peristalsis present, no guarding or rebound. Extremities: Symmetrical, no significant deformities, 1+ bilateral lower extremity pitting edema to ankles, non-tender, peripheral pulses present. Skin: No rashes, no lesions, warm to touch. Neuro: No focal neurological deficits. Psych: Cooperative, appropriate mood and effect. Objective Labs 03/20/25 05:02 03/20/25 05:02 Labs: Laboratory Results - last 24 hr 03/18/25 03/19/25 13:40 05:39 WBC 8.3 RBC 3.66 L Hgb 12.0 L Hct 35.4 L MCV 97 MCH 32.8 MCHC 33.9 RDW Std Deviation 51.3 H Plt Count 196 Neut % (Auto) 48 Lymph % (Auto) 30 [place] % (Auto) 18 H Eos % (Auto) 3 Baso % (Auto) 1 Neut # (Auto) 4.0 Lymph # (Auto) 2.5 [place] # (Auto) 1.5 H Eos # (Auto) 0.3 Baso # (Auto) 0.1 Immature Gran # (Auto) 0.02 H Absolute Nucleated RBC 0.00 Immature Gran % 0 Nucleated RBC % 0 Sodium 137 Potassium 4.0 D Chloride 98 Carbon Dioxide 29.7 Anion Gap 9 BUN 20 Creatinine 1.4 H Estim Creat Clear Calc 62.5 eGFR 56 L BUN/Creatinine Ratio 14 Glucose 133 H Calculated Osmolality 278 Calcium 9.3 Corrected Calcium 9.3 Phosphorus 3.5 Magnesium 1.9 Total Bilirubin 0.5 AST 43 H ALT 30 Alkaline Phosphatase 71 Total Protein 7.4 Albumin 4.0 Globulin 3.4 Albumin/Globulin Ratio 1.2 Stool Occult Blood Positive A Quality Measures Quality Measures VTE prophylaxis Assessment & Plan Assessment Current Active Medications: Generic Name Dose Route Start Last Admin Trade Name Freq PRN Reason Stop Dose Admin Acetaminophen 650 mg 03/15/25 23:46 Acetaminophen 325 Mg Tablet PO 04/14/25 23:45 Q6H PRN Fever >100.4 Apixaban 5 mg 03/16/25 21:00 03/19/25 08:04 Apixaban 2.5 Mg Tablet PO 04/15/25 20:59 5 mg BID HNAG Administration Aspirin 81 mg 03/16/25 09:00 03/19/25 08:04 Aspirin Ec 81 Mg Tabec PO 04/15/25 08:59 Not Given DAILY HANG Atorvastatin Calcium 40 mg 03/17/25 21:00 03/18/25 21:18 Atorvastatin Calcium 20 Mg Tablet PO 04/16/25 20:59 40 mg HS HANG Administration Bumetanide 1 mg 03/20/25 09:00 Bumetanide 0.5 Mg Tablet PO 04/19/25 08:59 QDAY HANG Diazepam 5 mg 03/16/25 18:14 Diazepam Inj 5 Mg/Ml Vial 2 Ml IVP X1 PRN Breakthrough Agitation Folic Acid 1 mg 03/16/25 09:00 03/19/25 08:04 Folic Acid 1 Mg Tablet PO 04/15/25 08:59 1 mg QDAY HANG Administration Gabapentin 300 mg 03/18/25 10:15 03/19/25 08:04 Gabapentin 300 Mg Capsule PO 04/17/25 10:14 300 mg QDAY HANG Administration Ceftriaxone Sodium/Dextrose 1 gm in 50 mls @ 100 mls/hr 03/16/25 21:00 03/18/25 21:32 Rocephin/D5w 1gm Iv Premix IV 03/22/25 20:59 100 mls/hr QPM HANG Administration Lorazepam 0.5 mg 03/16/25 18:14 Lorazepam 0.5 Mg Tablet PO 03/21/25 18:13 Q4HR PRN CIWA Score 2-6 Lorazepam 1 mg 03/16/25 18:14 Lorazepam 0.5 Mg Tablet PO 03/21/25 18:13 Q4HR PRN CIWA SCORE 7-11 Lorazepam 2 mg 03/16/25 18:14 Lorazepam 0.5 Mg Tablet PO 03/21/25 18:13 Q4HR PRN CIWA SCORE 12-15 Metoprolol Succinate 25 mg 03/19/25 12:30 03/19/25 12:47 Metoprolol Succinate Xl 25 Mg Tabcr PO 04/18/25 12:29 25 mg QDAY HANG Administration Pantoprazole Sodium 40 mg 03/17/25 21:00 03/19/25 08:04 Pantoprazole 40 Mg Tablet PO 04/16/25 20:59 40 mg BID HANG Administration Protocol Sennosides 8.8 mg 03/18/25 12:38 Sennosides Syrup 8.8 Mg/5 Ml Udc PO 04/17/25 12:37 QDAY PRN CONSTIPATION Protocol Spironolactone 25 mg 03/16/25 09:00 03/19/25 08:04 Spironolactone 25 Mg Tablet PO 04/15/25 08:59 25 mg QDAY HANG Administration Thiamine HCl 100 mg 03/16/25 09:00 03/19/25 08:05 Thiamine 100 Mg Tablet PO 04/15/25 08:59 100 mg QDAY HANG Administration Plan Patient is 64-year-old male with PMH of HTN, HLD, A-fib and type 3 block status post pacemaker presented to the ED on 03/15/2025 with shortness of breath and weakness. Patient is a poor historian. Patient was admitted for CHF exacerbation, NSTEMI type II, and possible upper GI bleed. #AHRF secondary to #Newly-diagnosed CHF #Hyponatremia Patient didn't take BP meds over last few days; bilateral lower extremity edema on exam, BNP 569 on admission, CXR showed CHF, echo 10/01/20 showed EF 55% Na on admission 124, today was 128; Cl on admission 92, today was 94 Likely hypervolemic hyponatremia in setting of CHF and volume overload Plan: Hold Lasix due to improved fluid status Spironolactone 25 mg daily Carvedilol 6.25 BID Fluid restriction 1500 mL, Strict I&O CPAP at bedtime Echo taken, showed EF of 45 to 50%, stage I diastolic dysfunction, and RVSP of 32 Cardiology consulted: Recommended to keep diuresing the patient and send iron panel Continue to monitor sodium level #Elevated Troponins (possibly representing end organ damage) Secondary to #Hypertensive emergency, resolved #NSTEMI Type I vs II BP on admission- 181/115; Troponin on admission 0.079, down trended to 0.057 EKG showed electronic ventricular pacemaker with a rate of 63, QTc 431, no acute ST segment changes Plan: Continue to monitor BP Aspirin 81 mg daily Diuresis as above #Coffee-ground emesis #Upper GI Bleed? #Acute Normocytic Anemia 1 episode of brown-colored emesis in the ED; Admission Hgb 11.3, MCV 94 Hgb 03/16/25- 10.8 Plan: Fecal occult blood ordered GI consulted, status post EGD that showed esophageal ulcer and gastritis. GI advanced the diet Advance diet as tolerated to peptic ulcer disease diet Transfuse if hemoglobin below 7 #UTI On admission- urine: 1+ blood, 6 RBC, WBC 118, bacteria 2+, leukocyte esterase positive Ucx shows E coli sensitive to ceftriaxone Bcx shows staph haemolyticus Plan: Ceftriaxone 1 g daily #Diabetes Previous A1c- 9.8; A1c on admission 6.3 Plan: Trend blood glucose #AUD Patient admits to drinking 3 to 4 beers a day currently. Plan: Thiamine Folate #Hx of CVA Previous MRI 09/29/20 shows old infarcts Plan: Monitor for new-onset neurological changes Aspirin 81 daily #Hyperlipidemia? Patient taking atorvastatin 80 at home, lipid panel negative Plan: Consider restarting home medication #AFib #Third degree heart block Pacemaker placed at [facility]; on eliquis at home. FOBT positive. Plan: Holding anticoagulation in the presence of suspected upper GI bleed #Lactic Acidosis (Resolved) Patient presented with a lactate of 3.0, downtrended to 1.9 DVT: Holding until confirmation of negative fecal occult blood after episode of brown emesis GI: Protonix 40 BID Diet: N.p.o. IV lines: PIVs Vincent: In place Code status: Full code This case was discussed with my attending physician, Dr. Ulrich, and senior resident, Dr. Tejada. Shelton Lomelizack, PGY1 Senior Resident Attestation: I discussed with and supervised the unpaid intern physician involved in the care of this patient. I personally saw and examined the patient and discussed the assessment and plan with the entire medicine team, including my attending. I agree with the assessment and plan as documented above. Leandro Tejada MD PGY3 Internal Medicine Attending Provider Attestation/Addendum 64-year-old male patient with hypertension, atrial fibrillation AV block status post pacemaker at [facility] history of CVA, alcohol use was admitted for respiratory failure secondary to CHF. He has UTI and also presented with upper GI bleed endoscopy showed esophageal ulcers. The patient is currently on PPI. He takes Eliquis for atrial fibrillation. Continue current medical management. BP stable, heart rate controlled, check for orthostatic changes. Continue to monitor weight. Monitor H&H. Repeat EKG troponin if he has chest pain. Most likely has type II NSTEMI. I discussed with and supervised the resident physician who took care of this patient. I agree with the assessment and plan as above.
--- NOTE | 2025-03-19 15:39 | PC.SS ---
DEMAND EQUIPMENT REPAIRER was notified by bedside nurse Fabby that family would like to speak to social media project manager about patients living condition. DEMAND EQUIPMENT REPAIRER met with patient and patient family at bedside. Family shared that they are very concerned about patients living condition as they stated when the EMS found him he was soiled and is not taking his medication. Family also reported that when the nurse came into the room and stated they were calling the social media project manager the patient stated he was going to stab himself and also stated he is going to jump off a building. DEMAND EQUIPMENT REPAIRER notified family that DEMAND EQUIPMENT REPAIRER will be making APS report due to living conditions and also will notify doctors of statements made. Patient will need mental health evaluation once medically clear. DEMAND EQUIPMENT REPAIRER spoke to bedside nurse Fabby who confirmed patient made those threats, DEMAND EQUIPMENT REPAIRER notified bedside nurse that patient will need to have initiate the 5150 protocol due to suicidal ideation. DEMAND EQUIPMENT REPAIRER spoke to Dr. Avila and informed him of patients SI and informed him patient will need sitter and 5150 protocol for safety. DEMAND EQUIPMENT REPAIRER also informed doctor that patients family is concerned with patients mental status as they feel he is not at baseline because he is unable to name some of his family and is not speaking coherently. Family stated he does not make sense when he speaks. NIESHA Cordova assisted DEMAND EQUIPMENT REPAIRERMiky Villaseñor with APS report, APS report was called in and fax report was sent for self neglect.
--- NOTE | 2025-03-19 15:46 | PC.CC ---
Addendum entered by ALFREDITO Valentine 03/19/25 16:41: SYSTEMS DESIGN ENGINEER placed APS report in chart. Original Note: Lamar SCHERER was consulted by MARTINEZ Villaseñor for suspected self-neglect APS report. Lamar SCHERER filed report with Ginna Cowan and faxed report to . APS would like to be notified prior to patient being discharged.
--- NOTE | 2025-03-19 16:30 | PC.NURSE ---
MD aware of concerns for patient's discharge to home. sheetmetal trades worker involved in patient's care
[2025-03-19] MEDS: Magnesium Sulfate 2 GM Ivpb 2 GM/50 ML BAG IV (17:03)
[2025-03-19 17:08] LABS: Ammonia < 10 uMol/L (11-32)
--- NOTE | 2025-03-19 17:20 | PD.IMPROG ---
Documentation for date of: 03/19/25 Subjective Subjective Interval history: Hemoglobin hematocrit 12.0 and 35.4 Exam Vital Signs Temp Pulse Resp BP Pulse Ox O2 Del Method O2 Flow Rate 98.1 F 61 22 H 155/82 H 98 Room Air 4 03/19/25 16:00 03/19/25 16:00 03/19/25 16:00 03/19/25 16:00 03/19/25 16:00 03/19/25 16:00 03/19/25 04:00 FiO2 40 03/19/25 04:00 Constitutional Comments: Chronically ill-appearing Routine Respiratory Exam Comments: Normal to auscultation Routine Abdominal Exam Comments: Soft nontender Objective Labs 03/19/25 05:39 03/19/25 05:39 Labs: Laboratory Results - last 24 hr 03/19/25 03/19/25 05:39 16:30 WBC 8.3 RBC 3.66 L Hgb 12.0 L Hct 35.4 L MCV 97 MCH 32.8 MCHC 33.9 RDW Std Deviation 51.3 H Plt Count 196 Neut % (Auto) 48 Lymph % (Auto) 30 [place] % (Auto) 18 H Eos % (Auto) 3 Baso % (Auto) 1 Neut # (Auto) 4.0 Lymph # (Auto) 2.5 [place] # (Auto) 1.5 H Eos # (Auto) 0.3 Baso # (Auto) 0.1 Immature Gran # (Auto) 0.02 H Absolute Nucleated RBC 0.00 Immature Gran % 0 Nucleated RBC % 0 Sodium 137 Potassium 4.0 D Chloride 98 Carbon Dioxide 29.7 Anion Gap 9 BUN 20 Creatinine 1.4 H Estim Creat Clear Calc 62.5 eGFR 56 L BUN/Creatinine Ratio 14 Glucose 133 H Calculated Osmolality 278 Calcium 9.3 Corrected Calcium 9.3 Phosphorus 3.5 Magnesium 1.9 Total Bilirubin 0.5 AST 43 H ALT 30 Alkaline Phosphatase 71 Ammonia < 10 L Total Protein 7.4 Albumin 4.0 Globulin 3.4 Albumin/Globulin Ratio 1.2 Impressions Impression: Hematemesis Esophageal ulcers both the distal esophagus and GE junction ulcers Relatively stable hemoglobin hematocrit Continue current management Assessment & Plan A&P Narrative Mr. Fields is a 64-year-old male with past medical history of hypertension, hyperlipidemia, atrial fibrillation, third-degree heart block status post pacemaker placement at [facility], Stroke/TIA, alcohol use and prediabetes who presented to [facility] emergency department with a chief complaint of difficulty walking. Patient found to have bilateral lower extremity edema, admitted for new onset CHF and possible acute decompensated heart failure. #Acute decompensated heart failure #New onset mild systolic CHF exacerbation Patient presented with bilateral lower extremity edema, endorses some shortness of breath currently on high flow nasal cannula. Patient has longstanding history of hypertension, prediabetes, history of atrial fibrillation with history of third-degree heart block with status post pacemaker placement at [facility]. History of significant alcohol use in the past BNP on presentation 569 Recommendations: - Continue diuresis with Lasix 40 mg IV twice daily - Strict intake and output, daily weight, fluid restriction 1500 cc - Echocardiogram is pending to assess LV RV function - Obtain iron panel, consider IV iron if patient has low iron reserve 03/17/25 Patient diuresing well with lasix 40 mg IV TID. BUN is 23 and creatinine is 1.6 today. Please hold lasix for today given the CLARITA. Replace KCL 60 meq/l 40+20 orally, magnesium 1.6 replace 6 grams magnesium sulfate iv. Keep K greater than 4 and Mg greater than 2 at all times. EF is mildly reduced at 45-50%, will start GDMT once agressive diuresis is completed if kidney function and BP are stable. Echo done 03/16/25 showed Overall poor quality images and suboptimal study. 2. Left ventricle size is mildly enlarged and systolic showe function is mildly reduced. Estimated ejection fraction is 45-50%. There is stage 1 diastolic dysfunction. 3. Right ventricle chamber size is mildly enlarged and systolic function is normal. Estimated RVSP is 32 mmHg with RAP 8. 4. There is mild mitral and tricuspid valve regurgitation. Mild AV sclerosis without stenosis. 5. The left atrium is severely enlarged. The right atrium is severely enlarged. 6. Dilated cardiomyopathy. #NSTEMI type II versus type I Patient denies any chest pain, troponin on presentation 0.079 which downtrended to 0.057 EKG was negative for any acute ST-T changes Patient's troponin elevation likely secondary to demand ischemia ?Monitor for chest pain #Atrial fibrillation Patient has history of atrial fibrillation, on Eliquis at home Patient had brown-colored emesis in the ED, concern of GI bleed, GI bleed workup initiated by primary team. [id number] score: 5 points ?Agree with holding Eliquis in setting of GI bleed ?Keep potassium greater than 4 and magnesium greater than 2 at all times #Third-degree heart block status post pacemaker placement Patient has history of pacemaker placement, was transferred from [facility] in the past to [facility] where apparently the pacemaker was placed. Will review previous records. #Hypertension Home dose of spironolactone was resumed, monitor blood pressure #Hyperlipidemia Lipid panel shows cholesterol 132, triglycerides 37, LDL 54, HDL 71 Per ASCVD risk algorithm, atorvastatin recommended - Will start on atorvastatin 40 mg at bedtime #GI bleed workup #Prediabetes #History of significant alcohol use in the past #History of stroke/TIA ?Management per primary team Management of rest of the medical conditions as per primary team and other consultants. Thank you for the consult and allowing me to participate in the care of the patient. Cardiology will continue to follow. Silver Abad M.D. Interventional Cardiology Time Spent With Patient Time: Total time spent is greater than 50% in coordination of care (as documented) at patient's floor/unit and/or counseling patient:
--- NOTE | 2025-03-19 17:56 | PC.NURSE ---
Discussed with 1:1 sitter suicide watch initiated d/t patient making multiple comments about ending everything so he doesn't have to deal with it anymore and he has left all of his properties in the hands of his family so they do not have to worry when he passes. Patient also stated he would jump off of the second floor, patient told family he would jump off of an airplane, etc. Patient then repeatedly stated he was joking and did not mean his words. Suicide precautions initiated for patient safety
[2025-03-19] MEDS: ATORVASTATIN CALCIUM 20 MG TABLET 40 MG PO (20:38)
[2025-03-19] MEDS: cefTRIAXone/D5w 1gm IV premix 1 GM/50 ML BAG IV (20:39)
[2025-03-20] VITALS (12 sets, daily range): BP systolic 123–175; BP diastolic 62–94; PULSE 60–95; RESP 15–99; TEMP 35.9–36.4; O2SAT 95–99; BMI 43.7
[2025-03-20 06:03] LABS: Hematocrit 35.0 % (41.0-53.0); Hemoglobin 11.7 g/dL (13.5-16.0); Mean Corpuscular HGB Conc 33.4 g/dl (31.0-37.0); Mean Corpuscular Hemoglobin 32.4 pg (25.0-35.0); Mean Corpuscular Volume 97 fL (80-100); Neutrophils % (Auto) 56 % (37-80); Platelet Count 193 Thou/mm3 (140-440); RDW Standard Deviation 50.6 fL (35.1-43.9); Red Blood Count 3.61 Miln/mm3 (4.50-5.90); White Blood Count 8.5 Thou/mm3 (3.8-10.6)
[2025-03-20 06:04] LABS: Basophils # (Auto) 0.1 Thou/mm3 (0.0-0.2); Basophils % (Auto) 1 % (0-2.5); Eosinophils # (Auto) 0.4 Thou/mm3 (0.0-0.5); Eosinophils % (Auto) 4 % (0-10); Immature Granulocytes Auto 0.01 Thou/mm3 (0.00-0.00); Lymphocytes # (Auto) 2.0 Thou/mm3 (1.0-4.8); Lymphocytes % (Auto) 23 % (10-50); Monocytes # (Auto) 1.4 Thou/mm3 (0.0-0.8); Monocytes % (Auto) 16 % (0-12); Neutrophils # (Auto) 4.7 Thou/mm3 (1.8-7.7); Nucleated Red Blood Cell # 0.00 Thou/mm3 (0.00-0.00); Nucleated Red Blood Cell % 0 /100 WBC (0)
[2025-03-20 06:39] LABS: Alanine Aminotransferase 31 U/L (10-49); Albumin, Serum 4.0 gm/dL (3.4-4.8); Albumin/Globulin Ratio 1.2 (1.2-2.2); Alkaline Phosphatase 75 U/L (46-116); Anion Gap 11 (7-16); Aspartate Amino Transferase 39 U/L (0-34); BUN/Creatinine Ratio 13 Ratio (12-20); Bilirubin,Total 0.5 mg/dL (0.3-1.2); Blood Urea Nitrogen 20 mg/dL (9-23); Calcium 9.5 mg/dL (8.3-10.6); Calcium (Corrected) 9.5 mg/dL (8.5-10.1); Carbon Dioxide 28.5 mMol/L (20.0-31.0); Chloride 97 mMol/L (98-107); Creatinine (Component) 1.5 mg/dL (0.6-1.3); Estimated Creatinine Clearance 58.5 mL/min (>60); Globulin 3.4 gm/dL (2.3-3.5); Glucose 144 mg/dL (74-106); Magnesium 2.1 mg/dL (1.6-2.6); Osmolality,Calculated 277 (275-295); Phosphorous 3.3 mg/dL (2.4-5.1); Potassium 4.2 mMol/L (3.4-5.1); Sodium 136 mMol/L (136-145); Total Protein 7.4 gm/dL (5.7-8.2); eGFR 52 See Note
--- NOTE | 2025-03-20 08:01 | ESPR_ITS ---
Documentation for date of: 03/20/25 Subjective Subjective Interval history: Patient seen at bedside, on suicide precautions, endorsed SI last night. Cr elevation noted, 1.5 today, spironolactone dose was increased by primary team today. will hold. Started on Bumex daily. Will continue to monitor renal function. Currently on Coreg 6.25 mg, continue, hold DYLAN/ARB/ARNI in setting of CLARITA. Patient will need outpatient cardiac follow-up. Exam Vital Signs Temp Pulse Resp BP Pulse Ox O2 Del Method O2 Flow Rate 97.5 F 60 17 159/82 H 96 Room Air 4 03/20/25 04:00 03/20/25 04:00 03/20/25 04:00 03/20/25 04:00 03/20/25 04:00 03/20/25 04:00 03/19/25 04:00 FiO2 40 03/19/25 04:00 Narrative Exam General: Awake and in no acute distress. Conversational and non-toxic appearing. HEENT: Normocephalic, atraumatic, mucous membranes moist. On room air. Heart: Regular rate and rhythm, no murmurs. Lungs: Clear to auscultation with no wheezing or crackles. Abdomen: Soft, obese, distended, nontender, positive bowel sounds. No guarding or rebound tenderness. Neurologic: Alert and oriented x3, no gross neurological deficit, and patient able to move all 4 extremities. Extremities: Trace bilateral lower extremity edema Skin: No rash or ecchymoses. Objective Labs 03/20/25 05:02 03/20/25 05:02 Labs: Laboratory Results - last 24 hr 03/19/25 03/19/25 03/20/25 05:39 16:30 05:02 WBC 8.5 RBC 3.61 L Hgb 11.7 L Hct 35.0 L MCV 97 MCH 32.4 MCHC 33.4 RDW Std Deviation 50.6 H Plt Count 193 Neut % (Auto) 56 Lymph % (Auto) 23 [place] % (Auto) 16 H Eos % (Auto) 4 Baso % (Auto) 1 Neut # (Auto) 4.7 Lymph # (Auto) 2.0 [place] # (Auto) 1.4 H Eos # (Auto) 0.4 Baso # (Auto) 0.1 Immature Gran # (Auto) 0.01 H Absolute Nucleated RBC 0.00 Immature Gran % 0 Nucleated RBC % 0 Sodium 136 Potassium 4.2 Chloride 97 L Carbon Dioxide 28.5 Anion Gap 11 BUN 20 Creatinine 1.5 H Estim Creat Clear Calc 58.5 L eGFR 52 L BUN/Creatinine Ratio 13 Glucose 144 H Calculated Osmolality 277 Calcium 9.5 Corrected Calcium 9.5 Phosphorus 3.5 3.3 Magnesium 1.9 2.1 Total Bilirubin 0.5 AST 39 H ALT 31 Alkaline Phosphatase 75 Ammonia < 10 L Total Protein 7.4 Albumin 4.0 Globulin 3.4 Albumin/Globulin Ratio 1.2 Quality Measures Quality Measures VTE prophylaxis Assessment & Plan Assessment Current Active Medications: Generic Name Dose Route Start Last Admin Trade Name Freq PRN Reason Stop Dose Admin Acetaminophen 650 mg 03/15/25 23:46 Acetaminophen 325 Mg Tablet PO 04/14/25 23:45 Q6H PRN Fever >100.4 Apixaban 5 mg 03/16/25 21:00 03/19/25 20:38 Apixaban 2.5 Mg Tablet PO 04/15/25 20:59 5 mg BID HANG Administration Aspirin 81 mg 03/16/25 09:00 03/19/25 08:04 Aspirin Ec 81 Mg Tabec PO 04/15/25 08:59 Not Given DAILY HANG Atorvastatin Calcium 40 mg 03/17/25 21:00 03/19/25 20:38 Atorvastatin Calcium 20 Mg Tablet PO 04/16/25 20:59 40 mg HS HANG Administration Bumetanide 1 mg 03/20/25 09:00 Bumetanide 0.5 Mg Tablet PO 04/19/25 08:59 QDAY HANG Carvedilol 6.25 mg 03/19/25 13:30 03/19/25 13:51 Carvedilol 3.125 Mg Tablet PO 04/18/25 13:29 6.25 mg BIDWM HANG Administration Diazepam 5 mg 03/16/25 18:14 Diazepam Inj 5 Mg/Ml Vial 2 Ml IVP X1 PRN Breakthrough Agitation Folic Acid 1 mg 03/16/25 09:00 03/19/25 08:04 Folic Acid 1 Mg Tablet PO 04/15/25 08:59 1 mg QDAY HANG Administration Gabapentin 300 mg 03/18/25 10:15 03/19/25 08:04 Gabapentin 300 Mg Capsule PO 04/17/25 10:14 300 mg QDAY HANG Administration Ceftriaxone Sodium/Dextrose 1 gm in 50 mls @ 100 mls/hr 03/16/25 21:00 03/19/25 20:39 Rocephin/D5w 1gm Iv Premix IV 03/22/25 20:59 100 mls/hr QPM HANG Administration Lorazepam 0.5 mg 03/16/25 18:14 Lorazepam 0.5 Mg Tablet PO 03/21/25 18:13 Q4HR PRN CIWA Score 2-6 Lorazepam 1 mg 03/16/25 18:14 Lorazepam 0.5 Mg Tablet PO 03/21/25 18:13 Q4HR PRN CIWA SCORE 7-11 Lorazepam 2 mg 03/16/25 18:14 Lorazepam 0.5 Mg Tablet PO 03/21/25 18:13 Q4HR PRN CIWA SCORE 12-15 Pantoprazole Sodium 40 mg 03/17/25 21:00 03/19/25 20:39 Pantoprazole 40 Mg Tablet PO 04/16/25 20:59 40 mg BID HANG Administration Protocol Sennosides 8.8 mg 03/18/25 12:38 Sennosides Syrup 8.8 Mg/5 Ml Udc PO 04/17/25 12:37 QDAY PRN CONSTIPATION Protocol Spironolactone 50 mg 03/20/25 09:00 Spironolactone 25 Mg Tablet PO 04/19/25 08:59 QDAY HANG Thiamine HCl 100 mg 03/16/25 09:00 03/19/25 08:05 Thiamine 100 Mg Tablet PO 04/15/25 08:59 100 mg QDAY HANG Administration Plan Mr. Fields is a 64-year-old male with past medical history of hypertension, hyperlipidemia, atrial fibrillation, third-degree heart block status post pacemaker placement at [facility], Stroke/TIA, alcohol use and prediabetes who presented to [facility] emergency department with a chief complaint of difficulty walking. Patient found to have bilateral lower extremity edema, admitted for new onset CHF and possible acute decompensated heart failure. #Acute decompensated heart failure, improving #New onset mild systolic CHF exacerbation #Heart failure with mildly reduced ejection fraction, EF 45 to 50%, 03/16/2025 #Dilated cardiomyopathy Patient presented with bilateral lower extremity edema, endorses some shortness of breath currently on high flow nasal cannula. Patient has longstanding history of hypertension, prediabetes, history of atrial fibrillation with history of third-degree heart block with status post pacemaker placement at [facility]. History of significant alcohol use in the past BNP on presentation 569 03/18-Patient diuresed with Lasix 40 3 times daily, net hospital negative -5 L, had CLARITA 03/17 and diuresis was continued, creatinine up trended to 1.8 today Echo done 03/16/25 showed Overall poor quality images and suboptimal study. 2. Left ventricle size is mildly enlarged and systolic showe function is mildly reduced. Estimated ejection fraction is 45-50%. There is stage 1 diastolic dysfunction. 3. Right ventricle chamber size is mildly enlarged and systolic function is normal. Estimated RVSP is 32 mmHg with RAP 8. 4. There is mild mitral and tricuspid valve regurgitation. Mild AV sclerosis without stenosis. 5. The left atrium is severely enlarged. The right atrium is severely enlarged. 6. Dilated cardiomyopathy. Recommendations: - Started on Bumex 1 mg p.o. daily, hold spironolactone. - Strict intake and output, daily weight, fluid restriction 1500 cc - Continue Coreg 6.25 mg p.o. twice daily, hold DYLAN/ARB/ARNI in setting of CLARITA. - Obtain iron panel, consider IV iron if patient has low iron reserve #NSTEMI type II, demand ischemia Patient denies any chest pain, troponin on presentation 0.079 which downtrended to 0.057 EKG was negative for any acute ST-T changes Patient's troponin elevation likely secondary to demand ischemia - Monitor for chest pain - Continue aspirin and atorvastatin - Patient will need outpatient ischemia workup for CAD #Atrial fibrillation Patient has history of atrial fibrillation, on Eliquis at home Patient had brown-colored emesis in the ED, concern of GI bleed, GI bleed workup initiated by primary team. [id number] score: 5 points ?Continue Eliquis ?Keep potassium greater than 4 and magnesium greater than 2 at all times #Third-degree heart block status post pacemaker placement Patient has history of pacemaker placement, was transferred from [facility] in the past to [facility] where apparently the pacemaker was placed. #Hypertension Monitor blood pressure, introduce GDMT as blood pressure is permissible and CLARITA resolves. ?Continue Coreg. #Hyperlipidemia Lipid panel shows cholesterol 132, triglycerides 37, LDL 54, HDL 71 Per ASCVD risk algorithm, atorvastatin recommended - Continue atorvastatin 40 mg at bedtime #Upper GI bleed, esophageal ulcers #Nonbleeding duodenal ulcer [place] class III #Acute kidney injury #Prediabetes #Alcohol dependence #History of stroke/TIA ?Management per primary team Thank you for the consult and allowing to participate in the care of the patient. Cardiology will continue to follow. Case discussed with Attending Physician Dr. Silver Terrazas MD Internal Medicine PGY-2 Disclaimer: This note was dictated by speech recognition. Minor errors in hearing screen coordinator may be present due to voice recognition software. Attending Provider Attestation/Addendum I have personally seen and examined the patient separately on the above date of service and discussed the plan of care with the resident. I reviewed the resident Dr. Agustín Terrazas consultation progress note and agree with the resident findings and plan in the note above and have also edited the documentation to reflect my findings and plan. Silver Abad M.D. Interventional Cardiology
[2025-03-20] MEDS: APIXABAN 2.5 MG TABLET 5 MG PO ×2 (08:36→21:09)
[2025-03-20] MEDS: ASPIRIN EC 81 MG TABEC PO (08:37)
[2025-03-20] MEDS: PANTOPRAZOLE 40 MG TABLET PO ×2 (08:37→21:10)
[2025-03-20] MEDS: GABAPENTIN 300 MG CAPSULE PO (08:37)
[2025-03-20] MEDS: BUMETANIDE 0.5 MG TABLET 1 MG PO (08:38)
[2025-03-20] MEDS: SPIRONOLACTONE 25 MG TABLET 50 MG PO (08:40)
[2025-03-20] MEDS: FOLIC ACID 1 MG TABLET PO (08:40)
[2025-03-20] MEDS: THIAMINE 100 MG TABLET PO (08:41)
--- NOTE | 2025-03-20 09:34 | ESPR_ITS ---
<Statement entered by Catrachito Montiel MD - 03/20/25 16:07> I saw and examined patient personally and supervised PGY 1 resident, Dr. Mancuso with formulating a management plan. I agree with the documentation with the exceptions as listed below. Patient was initially admitted for acute respiratory failure with hypoxia secondary to newly diagnosed CHF. In past 24 hours he had a fluid balance of - 140 cc. Currently on carvedilol 3.625 mg p.o. twice daily and as part of GDMT. Patient has an CLARITA and cannot start DYLAN/ARB or Entresto at this point. On diuresis with Bumex 1 mg p.o. daily. Patient is currently pending physical therapy evaluation for disposition. At this point in time he is medically cleared and we will refer to bilingual social worker for crisis evaluation. Patient endorsed suicidal ideations to the nurse and his sitter. Plan of care discussed with Attending Dr. Margarita Montiel MD PGY 2 Disclaimer: This note was dictated by speech recognition. Minor errors in supervisor cured meats may be present due to voice recognition software. Documentation for date of: 03/20/25 Subjective Subjective Interval history: Patient seen and examined at bedside; since yesterday PM stated that he wanted to harm himself, 1 to 1 sitter placed. Still talking about suicidal thoughts today. Medically cleared from IM perspective. Exam Vital Signs Temp Pulse Resp BP Pulse Ox O2 Del Method O2 Flow Rate 96.9 F 65 16 175/94 H 99 Room Air 4 03/20/25 08:00 03/20/25 08:40 03/20/25 08:00 03/20/25 08:40 03/20/25 08:00 03/20/25 08:00 03/19/25 04:00 FiO2 40 03/19/25 04:00 Narrative Exam General: A/O x3, no acute distress, well-nourished, well-developed. Nepali- speaking only. Eyes: PERRL, EOMI. Anicteric, vision grossly intact. Ears: No ear pain, no ear discharge, Hearing grossly intact. Nose: No nasal discharge. Mouth/Throat: Moist mucous membranes, no redness, no lesions. Neck: Neck supple, non-tender, no cervical lymphadenopathy. Lungs: Clear IFEOMA to auscultation and percussion, No accessory muscle use. Cardio: Normal S1/S2, regular rhythm, no murmurs, no JVD or carotid bruits. Abdomen: Soft, distended non-tender, no palpable masses, peristalsis present, no guarding or rebound. Extremities: Symmetrical, no significant deformities, 1+ bilateral lower extremity pitting edema to ankles, non-tender, peripheral pulses present. Skin: No rashes, no lesions, warm to touch. Neuro: No focal neurological deficits. Psych: Still speaking about suicidal thoughts today. Objective Labs 03/20/25 05:02 03/20/25 05:02 Labs: Laboratory Results - last 24 hr 03/19/25 03/20/25 16:30 05:02 WBC 8.5 RBC 3.61 L Hgb 11.7 L Hct 35.0 L MCV 97 MCH 32.4 MCHC 33.4 RDW Std Deviation 50.6 H Plt Count 193 Neut % (Auto) 56 Lymph % (Auto) 23 [place] % (Auto) 16 H Eos % (Auto) 4 Baso % (Auto) 1 Neut # (Auto) 4.7 Lymph # (Auto) 2.0 [place] # (Auto) 1.4 H Eos # (Auto) 0.4 Baso # (Auto) 0.1 Immature Gran # (Auto) 0.01 H Absolute Nucleated RBC 0.00 Immature Gran % 0 Nucleated RBC % 0 Sodium 136 Potassium 4.2 Chloride 97 L Carbon Dioxide 28.5 Anion Gap 11 BUN 20 Creatinine 1.5 H Estim Creat Clear Calc 58.5 L eGFR 52 L BUN/Creatinine Ratio 13 Glucose 144 H Calculated Osmolality 277 Calcium 9.5 Corrected Calcium 9.5 Phosphorus 3.3 Magnesium 2.1 Total Bilirubin 0.5 AST 39 H ALT 31 Alkaline Phosphatase 75 Ammonia < 10 L Total Protein 7.4 Albumin 4.0 Globulin 3.4 Albumin/Globulin Ratio 1.2 Quality Measures Quality Measures VTE prophylaxis Assessment & Plan Assessment Current Active Medications: Generic Name Dose Route Start Last Admin Trade Name Freq PRN Reason Stop Dose Admin Acetaminophen 650 mg 03/15/25 23:46 Acetaminophen 325 Mg Tablet PO 04/14/25 23:45 Q6H PRN Fever >100.4 Apixaban 5 mg 03/16/25 21:00 03/20/25 08:36 Apixaban 2.5 Mg Tablet PO 04/15/25 20:59 5 mg BID HANG Administration Aspirin 81 mg 03/16/25 09:00 03/20/25 08:37 Aspirin Ec 81 Mg Tabec PO 04/15/25 08:59 81 mg DAILY HANG Administration Atorvastatin Calcium 40 mg 03/17/25 21:00 03/19/25 20:38 Atorvastatin Calcium 20 Mg Tablet PO 04/16/25 20:59 40 mg HS HANG Administration Bumetanide 1 mg 03/20/25 09:00 03/20/25 08:38 Bumetanide 0.5 Mg Tablet PO 04/19/25 08:59 1 mg QDAY HANG Administration Carvedilol 6.25 mg 03/19/25 13:30 03/20/25 08:35 Carvedilol 3.125 Mg Tablet PO 04/18/25 13:29 6.25 mg BIDWM HANG Administration Diazepam 5 mg 03/16/25 18:14 Diazepam Inj 5 Mg/Ml Vial 2 Ml IVP X1 PRN Breakthrough Agitation Folic Acid 1 mg 03/16/25 09:00 03/20/25 08:40 Folic Acid 1 Mg Tablet PO 04/15/25 08:59 1 mg QDAY HANG Administration Gabapentin 300 mg 03/18/25 10:15 03/20/25 08:37 Gabapentin 300 Mg Capsule PO 04/17/25 10:14 300 mg QDAY HANG Administration Ceftriaxone Sodium/Dextrose 1 gm in 50 mls @ 100 mls/hr 03/16/25 21:00 03/19/25 20:39 Rocephin/D5w 1gm Iv Premix IV 03/22/25 20:59 100 mls/hr QPM HANG Administration Lorazepam 0.5 mg 03/16/25 18:14 Lorazepam 0.5 Mg Tablet PO 03/21/25 18:13 Q4HR PRN CIWA Score 2-6 Lorazepam 1 mg 03/16/25 18:14 Lorazepam 0.5 Mg Tablet PO 03/21/25 18:13 Q4HR PRN CIWA SCORE 7-11 Lorazepam 2 mg 03/16/25 18:14 Lorazepam 0.5 Mg Tablet PO 03/21/25 18:13 Q4HR PRN CIWA SCORE 12-15 Pantoprazole Sodium 40 mg 03/17/25 21:00 03/20/25 08:37 Pantoprazole 40 Mg Tablet PO 04/16/25 20:59 40 mg BID HANG Administration Protocol Sennosides 8.8 mg 03/18/25 12:38 Sennosides Syrup 8.8 Mg/5 Ml Udc PO 04/17/25 12:37 QDAY PRN CONSTIPATION Protocol Spironolactone 50 mg 03/20/25 09:00 03/20/25 08:40 Spironolactone 25 Mg Tablet PO 04/19/25 08:59 50 mg QDAY HANG Administration Thiamine HCl 100 mg 03/16/25 09:00 03/20/25 08:41 Thiamine 100 Mg Tablet PO 04/15/25 08:59 100 mg QDAY HANG Administration Plan Patient is 64-year-old male with PMH of HTN, HLD, A-fib and type 3 block status post pacemaker presented to the ED on 03/15/2025 with shortness of breath and weakness. Patient is a poor historian. Patient was admitted for CHF exacerbation, NSTEMI type II, and possible upper GI bleed. #AHRF secondary to #Newly-diagnosed CHF #Hyponatremia (resolved) Patient didn't take BP meds over last few days; bilateral lower extremity edema on exam, BNP 569 on admission, CXR showed CHF, echo 10/01/20 showed EF 55% Na on admission 124, today was 128; Cl on admission 92, today was 94 Likely hypervolemic hyponatremia in setting of CHF and volume overload Sodium today 136 Plan: Bumex 1mg PO qday Spironolactone 25 mg daily Carvedilol 6.25 BID Fluid restriction 1500 mL, Strict I&O CPAP at bedtime Echo taken, showed EF of 45 to 50%, stage I diastolic dysfunction, and RVSP of 32 Cardiology consulted: Recommended to keep diuresing the patient and send iron panel #Elevated Troponins (possibly representing end organ damage) Secondary to #Hypertensive emergency, resolved #NSTEMI Type I vs II BP on admission- 181/115; Troponin on admission 0.079, down trended to 0.057 EKG showed electronic ventricular pacemaker with a rate of 63, QTc 431, no acute ST segment changes Plan: Continue to monitor BP Aspirin 81 mg daily Diuresis as above #Coffee-ground emesis #Upper GI Bleed? #Acute Normocytic Anemia likely due to #Iron deficiency 1 episode of brown-colored emesis in the ED; Admission Hgb 11.3, MCV 94 Hgb 03/16/25- 10.8 Fe 62, TIBC 278, on iron panel Plan: Fecal occult blood ordered GI consulted, status post EGD that showed esophageal ulcer and gastritis. GI advanced the diet Advance diet as tolerated to peptic ulcer disease diet Transfuse if hemoglobin below 7 #Suicidal ideation Patient expressed suicidla ideation otday and yesterday; he is with 1 on 1 sitter. #UTI On admission- urine: 1+ blood, 6 RBC, WBC 118, bacteria 2+, leukocyte esterase positive Ucx shows E coli sensitive to ceftriaxone Bcx shows staph haemolyticus Plan: Cephalexin 500 mg TID #Diabetes Previous A1c- 9.8; A1c on admission 6.3 Plan: Trend blood glucose #AUD Patient admits to drinking 3 to 4 beers a day currently. Ammonia < 10 Plan: Thiamine Folate #Hx of CVA Previous MRI 09/29/20 shows old infarcts Plan: Monitor for new-onset neurological changes Aspirin 81 daily #Hyperlipidemia? Patient taking atorvastatin 80 at home, lipid panel negative Plan: Consider restarting home medication #AFib #Third degree heart block Pacemaker placed at [facility]; on eliquis at home. FOBT positive. Plan: Eiliquis 5 BID Aspirin 81 daily #Lactic Acidosis (Resolved) Patient presented with a lactate of 3.0, downtrended to 1.9 DVT: Holding until confirmation of negative fecal occult blood after episode of brown emesis GI: Protonix 40 BID Diet: N.p.o. IV lines: PIVs Vincent: In place Code status: Full code This case was discussed with my attending physician, Dr. Ulrich, and senior resident, Dr. Montiel. Shelton Mancuso, PGY1 Attending Provider Attestation/Addendum 64-year-old male patient with hypertension, atrial fibrillation AV block status post pacemaker at [facility] history of CVA, alcohol use was admitted for respiratory failure secondary to CHF. He has UTI and also presented with upper GI bleed endoscopy showed esophageal ulcers. The patient is currently on PPI. He takes Eliquis for atrial fibrillation. Continue current medical management. BP stable, heart rate controlled, check for orthostatic changes. Continue to monitor weight. Monitor H&H. Repeat EKG troponin if he has chest pain. Most likely has type II NSTEMI. I discussed with and supervised the resident physician who took care of this patient. I agree with the assessment and plan as above.
--- NOTE | 2025-03-20 09:38 | ESPR_ITS ---
Subjective Subjective Interval history: single pos bc noted. likely a contaminant Exam Vital Signs Temp Pulse Resp BP Pulse Ox O2 Del Method O2 Flow Rate 96.9 F 65 16 175/94 H 99 Room Air 4 03/20/25 08:00 03/20/25 08:40 03/20/25 08:00 03/20/25 08:40 03/20/25 08:00 03/20/25 08:00 03/19/25 04:00 FiO2 40 03/19/25 04:00 Narrative Exam no overt emboli. one of the reason we do 2 bc is to determine if there is a contaminant present. Objective - Internal Medicine Labs 03/20/25 05:02 03/20/25 05:02 Labs: Laboratory Results - last 24 hr 03/19/25 03/20/25 16:30 05:02 WBC 8.5 RBC 3.61 L Hgb 11.7 L Hct 35.0 L MCV 97 MCH 32.4 MCHC 33.4 RDW Std Deviation 50.6 H Plt Count 193 Neut % (Auto) 56 Lymph % (Auto) 23 [place] % (Auto) 16 H Eos % (Auto) 4 Baso % (Auto) 1 Neut # (Auto) 4.7 Lymph # (Auto) 2.0 [place] # (Auto) 1.4 H Eos # (Auto) 0.4 Baso # (Auto) 0.1 Immature Gran # (Auto) 0.01 H Absolute Nucleated RBC 0.00 Immature Gran % 0 Nucleated RBC % 0 Sodium 136 Potassium 4.2 Chloride 97 L Carbon Dioxide 28.5 Anion Gap 11 BUN 20 Creatinine 1.5 H Estim Creat Clear Calc 58.5 L eGFR 52 L BUN/Creatinine Ratio 13 Glucose 144 H Calculated Osmolality 277 Calcium 9.5 Corrected Calcium 9.5 Phosphorus 3.3 Magnesium 2.1 Total Bilirubin 0.5 AST 39 H ALT 31 Alkaline Phosphatase 75 Ammonia < 10 L Total Protein 7.4 Albumin 4.0 Globulin 3.4 Albumin/Globulin Ratio 1.2 Assessment & Plan A&P Narrative maintain other rx. bc is likely a contaminant will see again prn ordered some screens for tomorrow. call if positive Time Spent With Patient Time: Total time spent is greater than 50% in coordination of care (as documented) at patient's floor/unit and/or counseling patient:
--- NOTE | 2025-03-20 11:05 | ESCONSULT_ITS ---
RE: DARIANA ORTIZ : 1960 DATE OF CONSULTATION: 03/20/2025 REFERRING PHYSICIAN: Dr. Terrazas. REASON FOR CONSULTATION: Single positive blood culture with coagulase negative staph species which seems unlikely to be a true pathogen at this time. HISTORY OF PRESENT ILLNESS: Patient complains of some pain below his third toe, but there is no ulcers there and no so obvious source. He had no unusual swelling in his feet. His labs were as noted. He does have a pacemaker in place. His creatinine is a bit elevated, probably from his other health problems. He is on atorvastatin, Bumex, Eliquis, and some other medications. He may have alcohol usage. He is on thiamine and folic acid as well. ASSESSMENT: 1. Contaminated blood culture. 2. Other health problems as noted. 3. Other problems by medication. 4. Heart failure by medications with possible hypertension by medications. 5. Chronic kidney disease. RECOMMENDATIONS: Patient has elevated creatinine of 1.6 on admission, up to 1.8, back down to 1.4-1.5 last couple of days. Hydration has probably helped. There is probably no further intervention needed. I do not think we need to target the coag negative staph because it is probably not a player, and I would just target the other health problems as noted. He is not on any oxygen. He does not seem to need any other antibiotics, so if you want to switch him ceftriaxone to an oral medication, that would be fine. DT: 10:41:04 TT: 11:03:00 Ref: [id number] - TID: [id number] [facility]
--- NOTE | 2025-03-20 12:22 | PC.SS ---
Update: PT evaluation is pending. Infectious disease is consulting. Awaiting recommendations.
[2025-03-20 13:06] LABS: Ferritin 314 ng/mL (10.5-307.3); Iron 62 mcg/dL (65-175); Percent Iron Saturation 22 % (20-55); Total Iron Binding Capacity 278 mcg/dL (250-425); Unsaturated Iron Binding 216 (225-295)
--- NOTE | 2025-03-20 16:14 | PC.PT ---
PT eval only. Patient is xI with bed mobility, transfers, and ambulation with no AD. Patient is safe to ambulate to the bathroom and in the halls with 1 staff for safety due to his CIWA protocol. RN made aware.
--- NOTE | 2025-03-20 21:08 | PD.IMPROG ---
Documentation for date of: 03/20/25 Subjective Subjective Interval history: Patient evaluated Hemoglobin hematocrit 11.7 and 35.0 Exam Vital Signs Temp Pulse Resp BP Pulse Ox O2 Del Method O2 Flow Rate 96.9 F 60 19 123/62 95 Room Air 4 03/20/25 20:00 03/20/25 20:00 03/20/25 20:00 03/20/25 20:00 03/20/25 20:00 03/20/25 20:00 03/19/25 04:00 FiO2 40 03/19/25 04:00 Objective Labs 03/20/25 05:02 03/20/25 05:02 Labs: Laboratory Results - last 24 hr 03/20/25 05:02 WBC 8.5 RBC 3.61 L Hgb 11.7 L Hct 35.0 L MCV 97 MCH 32.4 MCHC 33.4 RDW Std Deviation 50.6 H Plt Count 193 Neut % (Auto) 56 Lymph % (Auto) 23 [place] % (Auto) 16 H Eos % (Auto) 4 Baso % (Auto) 1 Neut # (Auto) 4.7 Lymph # (Auto) 2.0 [place] # (Auto) 1.4 H Eos # (Auto) 0.4 Baso # (Auto) 0.1 Immature Gran # (Auto) 0.01 H Absolute Nucleated RBC 0.00 Immature Gran % 0 Nucleated RBC % 0 Sodium 136 Potassium 4.2 Chloride 97 L Carbon Dioxide 28.5 Anion Gap 11 BUN 20 Creatinine 1.5 H Estim Creat Clear Calc 58.5 L eGFR 52 L BUN/Creatinine Ratio 13 Glucose 144 H Calculated Osmolality 277 Calcium 9.5 Corrected Calcium 9.5 Phosphorus 3.3 Magnesium 2.1 Iron 62 L TIBC 278 Iron Saturation 22 Unsat Iron Binding 216 L Ferritin 314 H Total Bilirubin 0.5 AST 39 H ALT 31 Alkaline Phosphatase 75 Total Protein 7.4 Albumin 4.0 Globulin 3.4 Albumin/Globulin Ratio 1.2 Impressions Impression: Mid esophageal ulcers and distal esophageal ulcers GE junction ulcers Hemoglobin hematocrit relatively stable Continue Protonix Assessment & Plan A&P Narrative maintain other rx. bc is likely a contaminant will see again prn ordered some screens for tomorrow. call if positive Time Spent With Patient Time: Total time spent is greater than 50% in coordination of care (as documented) at patient's floor/unit and/or counseling patient:
[2025-03-20] MEDS: ATORVASTATIN CALCIUM 20 MG TABLET 40 MG PO (21:09)
[2025-03-21] VITALS (12 sets, daily range): BP systolic 130–164; BP diastolic 60–97; PULSE 60–114; RESP 13–98; TEMP 36–36.3; O2SAT 93–99; BMI 43.4
[2025-03-21 05:47] LABS: Basophils # (Auto) 0.1 Thou/mm3 (0.0-0.2); Basophils % (Auto) 1 % (0-2.5); Eosinophils # (Auto) 0.4 Thou/mm3 (0.0-0.5); Eosinophils % (Auto) 6 % (0-10); Hematocrit 34.9 % (41.0-53.0); Hemoglobin 11.5 g/dL (13.5-16.0); Immature Granulocytes Auto 0.01 Thou/mm3 (0.00-0.00); Lymphocytes # (Auto) 2.2 Thou/mm3 (1.0-4.8); Lymphocytes % (Auto) 30 % (10-50); Mean Corpuscular HGB Conc 33.0 g/dl (31.0-37.0); Mean Corpuscular Hemoglobin 31.9 pg (25.0-35.0); Mean Corpuscular Volume 97 fL (80-100); Monocytes # (Auto) 1.2 Thou/mm3 (0.0-0.8); Monocytes % (Auto) 17 % (0-12); Neutrophils # (Auto) 3.4 Thou/mm3 (1.8-7.7); Neutrophils % (Auto) 46 % (37-80); Nucleated Red Blood Cell # 0.00 Thou/mm3 (0.00-0.00); Nucleated Red Blood Cell % 0 /100 WBC (0); Platelet Count 208 Thou/mm3 (140-440); RDW Standard Deviation 50.0 fL (35.1-43.9); Red Blood Count 3.61 Miln/mm3 (4.50-5.90); White Blood Count 7.3 Thou/mm3 (3.8-10.6)
[2025-03-21 06:38] LABS: Alanine Aminotransferase 29 U/L (10-49); Albumin, Serum 3.8 gm/dL (3.4-4.8); Albumin/Globulin Ratio 1.2 (1.2-2.2); Alkaline Phosphatase 65 U/L (46-116); Anion Gap 11 (7-16); Aspartate Amino Transferase 36 U/L (0-34); BUN/Creatinine Ratio 14 Ratio (12-20); Bilirubin,Total 0.5 mg/dL (0.3-1.2); Blood Urea Nitrogen 21 mg/dL (9-23); Calcium 9.0 mg/dL (8.3-10.6); Calcium (Corrected) 9.2 mg/dL (8.5-10.1); Carbon Dioxide 29.1 mMol/L (20.0-31.0); Chloride 99 mMol/L (98-107); Creatinine (Component) 1.5 mg/dL (0.6-1.3); Estimated Creatinine Clearance 58.3 mL/min (>60); Globulin 3.3 gm/dL (2.3-3.5); Glucose 140 mg/dL (74-106); Magnesium 1.8 mg/dL (1.6-2.6); Osmolality,Calculated 282 (275-295); Phosphorous 3.8 mg/dL (2.4-5.1); Potassium 3.9 mMol/L (3.4-5.1); Sodium 139 mMol/L (136-145); Total Protein 7.1 gm/dL (5.7-8.2); eGFR 52 See Note
[2025-03-21 06:55] LABS: Hepatitis C Antibody Non Reactive (Non React)
[2025-03-21] MEDS: Magnesium Sulfate 2 GM Ivpb 2 GM/50 ML BAG IV (08:40)
[2025-03-21] MEDS: THIAMINE 100 MG TABLET PO (08:40)
[2025-03-21] MEDS: APIXABAN 2.5 MG TABLET 5 MG PO ×2 (08:41→21:39)
[2025-03-21] MEDS: GABAPENTIN 300 MG CAPSULE PO (08:41)
[2025-03-21] MEDS: PANTOPRAZOLE 40 MG TABLET PO ×2 (08:41→21:40)
[2025-03-21] MEDS: ASPIRIN EC 81 MG TABEC PO (08:41)
[2025-03-21] MEDS: FOLIC ACID 1 MG TABLET PO (08:41)
[2025-03-21] MEDS: BUMETANIDE 0.5 MG TABLET 1 MG PO (08:43)
--- NOTE | 2025-03-21 08:45 | PC.SS ---
ECHO TECH informed by sr. merchandise planner that patient is medically cleared for mental health evaluation. ECHO TECH notified ED coordinator.
--- NOTE | 2025-03-21 09:04 | PD.RESPRO ---
Documentation for date of: 03/21/25 Subjective Subjective Interval history: Patient seen and examined at bedside, continues to have edema however significant improvement compared to admission. No overnight events, labs and vitals reviewed. Continue Bumex 1 mg p.o. daily Coreg uptitrated to 12.5 twice daily for blood pressure control, patient still has CLARITA creatinine 1.5, hold spironolactone/DYLAN/ARB/ARNI. Plan to decrease Coreg dose outpatient and start patient on DYLAN/ARB/ARNI and spironolactone once CLARITA has resolved. Patient on suicidal precautions, further workup per primary team. Exam Vital Signs Temp Pulse Resp BP Pulse Ox O2 Del Method O2 Flow Rate 97.4 F 60 18 158/60 H 95 Room Air 4 03/21/25 04:00 03/21/25 08:43 03/21/25 07:39 03/21/25 08:43 03/21/25 04:00 03/21/25 04:00 03/19/25 04:00 FiO2 40 03/19/25 04:00 Narrative Exam General: Awake and in no acute distress. Conversational and non-toxic appearing. HEENT: Normocephalic, atraumatic, mucous membranes moist. On room air. Heart: Regular rate and rhythm, no murmurs. Lungs: Clear to auscultation with no wheezing or crackles. Abdomen: Soft, obese, distended, nontender, positive bowel sounds. No guarding or rebound tenderness. Neurologic: Alert and oriented x3, no gross neurological deficit, and patient able to move all 4 extremities. Extremities: Trace bilateral lower extremity edema Skin: No rash or ecchymoses. Objective Labs 03/21/25 05:10 03/21/25 05:10 Labs: Laboratory Results - last 24 hr 03/20/25 03/21/25 05:02 05:10 WBC 7.3 RBC 3.61 L Hgb 11.5 L Hct 34.9 L MCV 97 MCH 31.9 MCHC 33.0 RDW Std Deviation 50.0 H Plt Count 208 Neut % (Auto) 46 Lymph % (Auto) 30 [place] % (Auto) 17 H Eos % (Auto) 6 Baso % (Auto) 1 Neut # (Auto) 3.4 Lymph # (Auto) 2.2 [place] # (Auto) 1.2 H Eos # (Auto) 0.4 Baso # (Auto) 0.1 Immature Gran # (Auto) 0.01 H Absolute Nucleated RBC 0.00 Immature Gran % 0 Nucleated RBC % 0 Sodium 139 Potassium 3.9 Chloride 99 Carbon Dioxide 29.1 Anion Gap 11 BUN 21 Creatinine 1.5 H Estim Creat Clear Calc 58.3 L eGFR 52 L BUN/Creatinine Ratio 14 Glucose 140 H Calculated Osmolality 282 Calcium 9.0 Corrected Calcium 9.2 Phosphorus 3.8 Magnesium 1.8 Iron 62 L TIBC 278 Iron Saturation 22 Unsat Iron Binding 216 L Ferritin 314 H Total Bilirubin 0.5 AST 36 H ALT 29 Alkaline Phosphatase 65 Total Protein 7.1 Albumin 3.8 Globulin 3.3 Albumin/Globulin Ratio 1.2 Hepatitis C Antibody Non Reactive Quality Measures Quality Measures VTE prophylaxis Assessment & Plan Assessment Current Active Medications: Generic Name Dose Route Start Last Admin Trade Name Freq PRN Reason Stop Dose Admin Acetaminophen 650 mg 03/15/25 23:46 Acetaminophen 325 Mg Tablet PO 04/14/25 23:45 Q6H PRN Fever >100.4 Apixaban 5 mg 03/16/25 21:00 03/21/25 08:41 Apixaban 2.5 Mg Tablet PO 04/15/25 20:59 5 mg BID HANG Administration Aspirin 81 mg 03/16/25 09:00 03/21/25 08:41 Aspirin Ec 81 Mg Tabec PO 04/15/25 08:59 81 mg DAILY HANG Administration Atorvastatin Calcium 40 mg 03/17/25 21:00 03/20/25 21:09 Atorvastatin Calcium 20 Mg Tablet PO 04/16/25 20:59 40 mg HS HANG Administration Bumetanide 1 mg 03/20/25 09:00 03/21/25 08:43 Bumetanide 0.5 Mg Tablet PO 04/19/25 08:59 1 mg QDAY HANG Administration Carvedilol 12.5 mg 03/21/25 21:00 Carvedilol 12.5 Mg Tablet PO 04/20/25 20:59 BIDWM HANG Cephalexin HCl 500 mg 03/20/25 14:00 03/21/25 05:35 Cephalexin 250 Mg Capsule PO 03/23/25 12:00 500 mg TID HANG Administration Folic Acid 1 mg 03/16/25 09:00 03/21/25 08:41 Folic Acid 1 Mg Tablet PO 04/15/25 08:59 1 mg QDAY HANG Administration Gabapentin 300 mg 03/18/25 10:15 03/21/25 08:41 Gabapentin 300 Mg Capsule PO 04/17/25 10:14 300 mg QDAY HANG Administration Magnesium Sulfate 2 gm in 50 mls @ 25 mls/hr 03/21/25 08:01 03/21/25 08:40 Magnesium Sulfate Ivpb IV 03/21/25 10:00 25 mls/hr X1 ONE Administration Pantoprazole Sodium 40 mg 03/17/25 21:00 03/21/25 08:41 Pantoprazole 40 Mg Tablet PO 04/16/25 20:59 40 mg BID HANG Administration Protocol Sennosides 8.8 mg 03/18/25 12:38 Sennosides Syrup 8.8 Mg/5 Ml Udc PO 04/17/25 12:37 QDAY PRN CONSTIPATION Protocol Thiamine HCl 100 mg 03/16/25 09:00 03/21/25 08:40 Thiamine 100 Mg Tablet PO 04/15/25 08:59 100 mg QDAY HANG Administration Plan Mr. Fields is a 64-year-old male with past medical history of hypertension, hyperlipidemia, atrial fibrillation, third-degree heart block status post pacemaker placement at [facility], Stroke/TIA, alcohol use and prediabetes who presented to [facility] emergency department with a chief complaint of difficulty walking. Patient found to have bilateral lower extremity edema, admitted for new onset CHF and possible acute decompensated heart failure. #Acute decompensated heart failure, improving #New onset mild systolic CHF exacerbation #Heart failure with mildly reduced ejection fraction, EF 45 to 50%, 03/16/2025 #Dilated cardiomyopathy Patient presented with bilateral lower extremity edema, endorses some shortness of breath currently on high flow nasal cannula. Patient has longstanding history of hypertension, prediabetes, history of atrial fibrillation with history of third-degree heart block with status post pacemaker placement at [facility]. History of significant alcohol use in the past BNP on presentation 569 03/18-Patient diuresed with Lasix 40 3 times daily, net hospital negative -5 L, had CLARITA 03/17 and diuresis was continued, creatinine up trended to 1.8 today Echo done 03/16/25 showed Overall poor quality images and suboptimal study. 2. Left ventricle size is mildly enlarged and systolic showe function is mildly reduced. Estimated ejection fraction is 45-50%. There is stage 1 diastolic dysfunction. 3. Right ventricle chamber size is mildly enlarged and systolic function is normal. Estimated RVSP is 32 mmHg with RAP 8. 4. There is mild mitral and tricuspid valve regurgitation. Mild AV sclerosis without stenosis. 5. The left atrium is severely enlarged. The right atrium is severely enlarged. 6. Dilated cardiomyopathy. Recommendations: - Continue Bumex 1 mg p.o. daily, hold spironolactone. - Strict intake and output, daily weight, fluid restriction 1500 cc - Continue Coreg 12.5 mg p.o. twice daily, hold DYLAN/ARB/ARNI in setting of CLARITA. - Still has CLARITA, will consider starting patient on DYLAN/ARB/ARNI and spironolactone outpatient. #NSTEMI type II, demand ischemia Patient denies any chest pain, troponin on presentation 0.079 which downtrended to 0.057 EKG was negative for any acute ST-T changes Patient's troponin elevation likely secondary to demand ischemia - Monitor for chest pain - Continue aspirin and atorvastatin - Patient will need outpatient ischemia workup for CAD #Atrial fibrillation Patient has history of atrial fibrillation, on Eliquis at home Patient had brown-colored emesis in the ED, concern of GI bleed, GI bleed workup initiated by primary team. [id number] score: 5 points ?Continue Eliquis ?Keep potassium greater than 4 and magnesium greater than 2 at all times #Third-degree heart block status post pacemaker placement Patient has history of pacemaker placement, was transferred from [facility] in the past to [facility] where apparently the pacemaker was placed. #Hypertension Monitor blood pressure, introduce GDMT as blood pressure is permissible and CLARITA resolves. ?Continue Coreg. #Hyperlipidemia Lipid panel shows cholesterol 132, triglycerides 37, LDL 54, HDL 71 Per ASCVD risk algorithm, atorvastatin recommended - Continue atorvastatin 40 mg at bedtime #Upper GI bleed, esophageal ulcers #Nonbleeding duodenal ulcer [place] class III #Acute kidney injury #Prediabetes #Alcohol dependence #History of stroke/TIA ?Management per primary team Thank you for the consult and allowing to participate in the care of the patient. Cardiology will continue to follow. Case discussed with Attending Physician Dr. Silver Terrazas MD Internal Medicine PGY-2 Disclaimer: This note was dictated by speech recognition. Minor errors in sales person may be present due to voice recognition software. Attending Provider Attestation/Addendum I have personally seen and examined the patient separately on the above date of service and discussed the plan of care with the resident. I reviewed the resident Dr. Agustín Terrazas consultation progress note and agree with the resident findings and plan in the note above and have also edited the documentation to reflect my findings and plan. Silver Abad M.D. Interventional Cardiology
--- NOTE | 2025-03-21 10:45 | PC.SS ---
Addendum entered by Brea Arguelles 03/21/25 12:05: SS sent out packet to all adult LPS facilities Original Note: SS follow up note; SS informed Dr. Montiel that patient was going to be placed on a [address] Montiel verbalized understanding. SS will sent out to all LPS facilities.
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
--- NOTE | 2025-03-21 14:03 | PC.CC ---
NIESHA Pickens followed up with the following facilities [facility]; Faxed in review [facility]: Faxed to review [facility]: LM [facility]: Not accepted [facility]: Faxed referral to be reviewed [facility]: Faxed [facility]: Faxed referral to be reviewed [facility]:Faxed [facility]: Fax [facility]: They are review patient chart [facility]: faxed [facility]: Faxed Jeffrey Waggoner: Spoke with Radha @ 1:22 pm she wanted to know patient weight and is reviewing patient chart Donal Kenney: Spoke with Radha who is reviewing patient fax
--- NOTE | 2025-03-21 14:26 | PC.CC ---
Addendum entered by Brea Arguelles 03/21/25 15:03: SS follow up note: SS was contacted by [facility] that at the time they are not able to accept patient due to medical reasons. Original Note: NIESHA Pickens and KENNY Guidry spoke with Khalida from [facility] and was informed that patient is medically to complex: KENNY Guidry spoke with [facility] and they are reviewing chart however patient needs further evaluation by nursing staff to medical condition.
--- NOTE | 2025-03-21 14:33 | ESDS_ITS ---
<Statement entered by Catrachito Montiel MD - 03/21/25 22:39> I saw and examined patient personally and supervised PGY 1 resident, Dr. Mancuso with formulating a discharge plan. I agree with the documentation as listed below. Plan of care discussed with Attending Dr. Jenny Montiel MD PGY 2 Disclaimer: This note was dictated by speech recognition. Minor errors in multifold operator may be present due to voice recognition software. Planned Discharge Date 03/21/25 DS: Providers Provider Date of admission: 03/15/25 23:46 Primary care physician: Physician No Primary/Family Admitting Provider: Dayana Guillen MD Attending Provider on Admission: Deni Alvarado DO Consults: 03/16/25 00:16 Consult to Cardiology Routine Comment: For Heart failure Consulting Provider: Silver Abad 03/16/25 07:14 Consult to Gastroenterology Routine Comment: Coffee ground emesis Consulting Provider: Elicia Gifford 03/16/25 16:03 Health Equity Referral - Knowledge Deficit Routine Comment: Positive screening for knowledge deficit needs. Health Equity Referral - Nutrition Routine Comment: Positive screening for nutrition needs. Health Equity Referral - Transportation Routine Comment: Positive screening for transportation needs. 03/18/25 10:11 Referral Physical Therapy Routine Comment: Physician Instructions: 03/18/25 12:39 Referral Physical Therapy Routine Comment: Physician Instructions: Instructions: for SNF placement 03/20/25 07:56 Consult to Infectious Diseases Routine Comment: Consulting Provider: Luke Archuleta Attending Provider on DC: Deni Alvarado DO Discharging Provider: Deni Alvarado DO DS: Diagnosis Problem List Completed Was Problem List Reviewed/Reconciled?: Yes Hospital Course Hospital Course Hospital course: Hospital Course: Patient is a 64-year-old male with significant PMH of HTN, HLD, A-fib on anticoagulation, alcohol use disorder, 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 Was hypertensive and had coffee-ground emesis in ED. Given thiamine in ED, and admitted for acute decompensated heart failure, NSTEMI type II, upper GI bleed likely due to gastritis. Patient was started on diuresis, and had lost significant fluid by 03/17/25, with improved breathing. On 03/18/25, EGD showed esophageal ulcer and gastritis. By 03/20/25, patient was on Coreg and Bumex. By 03/21/25, patient was considered medically stable for discharge to facility by social service agency director. Discharge Instructions: ? We have started you on Bumex 1 mg a day. ? We have stopped your old water pill, Lasix. ? We have started you on Coreg for your heart rate and heart failure. ? We have started you on gabapentin for your diabetic nerve pain. ? We have increased your dose of spironolactone to 50 mg once a day. ? Continue taking the rest of your home medications as before ? You will have to restrict your daily liquid intake to 1.5 Litres / 50 ounces per day. This includes water, teas, coffees and soups. ? You will have to follow a low salt diet for the rest of your life. This means no Icelandic food or fast food. ? You will have to take your weight daily. If your weight increases by more than 2-3 pounds in 1-2 days, take an extra water pill that day. ? You will have to measure your blood pressure daily. If the top number is less than 100, do not take your blood pressure medications that day. ? Keep a log of your blood pressures to take to your primary doctor and managed care provider. - Follow up with your managed care provider or managed care provider, Dr. Abad outpatient. His office number is [phone]. Please see a managed care provider within 1-2 weeks of discharge - Follow up with your primary care physician within 1 week of discharge. If you do not have a primary care physician, please follow up with the [facility] Residents clinic ([phone]) ? If you experience any new, worsening or persistent symptoms either call your primary doctor, or dial 911 or present to the emergency department. Problem List: #AHRF secondary to #Newly-diagnosed CHF #Hyponatremia (resolved) #Elevated Troponins (possibly representing end organ damage) Secondary to #Hypertensive emergency, resolved #NSTEMI Type I vs II #Coffee-ground emesis #Upper GI Bleed? #Acute Normocytic Anemia likely due to #Iron deficiency #UTI #Diabetes #AUD #Hx of CVA #Hyperlipidemia? #AFib #Third degree heart block #Lactic Acidosis (Resolved) Status at Discharge Functional status at discharge: uses cane/walker Overall status at discharge: patient is progressing back to baseline Time Spent with Patient Time attestation: Total time spent providing and/or coordinating discharge services: Time spent: Greater than 30 minutes Exam Vital Signs Temp Pulse Resp BP Pulse Ox O2 Del Method O2 Flow Rate 96.8 F 60 30 H 131/88 H 95 Room Air 4 03/21/25 12:00 03/21/25 12:00 03/21/25 12:00 03/21/25 12:00 03/21/25 12:00 03/21/25 12:00 03/19/25 04:00 FiO2 40 03/19/25 04:00 Narrative Exam General: A/O x3, no acute distress, well-nourished, well-developed. Afghan- speaking only. Eyes: PERRL, EOMI. Anicteric, vision grossly intact. Ears: No ear pain, no ear discharge, Hearing grossly intact. Nose: No nasal discharge. Mouth/Throat: Moist mucous membranes, no redness, no lesions. Neck: Neck supple, non-tender, no cervical lymphadenopathy. Lungs: Clear IFEOMA to auscultation and percussion, No accessory muscle use. Cardio: Normal S1/S2, regular rhythm, no murmurs, no JVD or carotid bruits. Abdomen: Soft, distended non-tender, no palpable masses, peristalsis present, no guarding or rebound. Extremities: Symmetrical, no significant deformities, 1+ bilateral lower extremity pitting edema to ankles, non-tender, peripheral pulses present. Skin: No rashes, no lesions, warm to touch. Neuro: No focal neurological deficits. Psych: Still speaking about suicidal thoughts. Discharge Plan Plan Patient Disposition: Xfer Other Patient condition on transfer: Stable and Benefits outweigh risks Care Plan Goals: ? We have started you on Bumex 1 mg a day. ? We have stopped your old water pill, Lasix. ? We have started you on Coreg for your heart rate and heart failure. ? We have started you on gabapentin for your diabetic nerve pain. ? We have increased your dose of spironolactone to 50 mg once a day. ? Continue taking the rest of your home medications as before ? You will have to restrict your daily liquid intake to 1.5 Litres / 50 ounces per day. This includes water, teas, coffees and soups. ? You will have to follow a low salt diet for the rest of your life. This means no [place]ic food or fast food. ? You will have to take your weight daily. If your weight increases by more than 2-3 pounds in 1-2 days, take an extra water pill that day. ? You will have to measure your blood pressure daily. If the top number is less than 100, do not take your blood pressure medications that day. ? Keep a log of your blood pressures to take to your primary doctor and managed care provider. - Follow up with your managed care provider or managed care provider, Dr. Abad outpatient. His office number is [phone]. Please see a managed care provider within 1-2 weeks of discharge - Follow up with your primary care physician within 1 week of discharge. If you do not have a primary care physician, please follow up with the [facility] Residents clinic ([phone]) ? If you experience any new, worsening or persistent symptoms either call your primary doctor, or dial 911 or present to the emergency department. Prescriptions/Referrals Prescriptions/Med Rec: New atorvastatin [Lipitor] 40 mg tablet 40 mg PO HS 30 Days Qty: 30 0RF bumetanide 1 mg tablet 1 mg PO QDAY 30 Days Qty: 30 0RF pantoprazole 40 mg Tablet,Delayed Release (Dr/Ec) 40 mg PO BID 30 Days Qty: 60 0RF gabapentin 300 mg Capsule 300 mg PO QDAY 30 Days Qty: 30 0RF folic acid 1 mg Tablet 1 mg PO QDAY 7 Days Qty: 7 0RF thiamine mononitrate (vit B1) 100 mg Tablet 100 mg PO QDAY 30 Days Qty: 30 0RF carvedilol 12.5 mg Tablet 12.5 mg PO BIDWM 30 Days Qty: 60 0RF Continued Eliquis 5 mg tablet 5 mg PO QDAY Patient Comments: TOME 1 TABLETA POR LA BOCA 2 VECES AL RAEGAN (TAKE 1 TABLET BY MOUTH 2 TIMES A DAY) Discontinued furosemide 40 mg tablet 40 mg PO QDAY Patient Comments: TAKE 1 TABLET BY MOUTH EVERY DAY spironolactone 25 mg tablet 12.5 mg PO QDAY Patient Comments: TAKE 1/2 TABLET BY MOUTH DAILY atorvastatin 80 mg tablet 80 mg PO QDAY Patient Comments: TOME 1 TABLETA POR LA BOCA DIANNE VEZ AL RAEGAN POR 90 [place] (TAKE 1 TABLET BY MOUTH DAILY FOR 90 DAYS) Referrals: [facility] [Outside] Silver Abad MD [Physician, Cardiology] No Primary/Family,Physician [Primary Care Provider] Patient/Caregiver Discharge Instructions Education Materials: Heart Failure Meds, Heart Failure: Tracking Your Weight, Coping with Heart Failure, Heart Failure: Evaluating Your Heart Print Language: Afghan Stand Alone Forms: Angélica Award Info., Patient Portal Info Letter Discharge Order Discharge Orders: Discharge (Routine); Ordered 03/21/25 Ordered By: Catrachito Montiel Quality Discharge Quality Measures none MD Attestestation MD Attestation I have discussed and was present for the essential components of the discharge history, physical examination, diagnosis, and discharge treatment plan with the resident. I agree with the patient's discharge care as documented by the resident and amended herein by me. Jaya Alvarado, . The patient understood all discharge instructions, all questions were answered satisfactorily. The patient was instructed to return to the Emergency Department is symptoms worsened or persisted.Patient was stable, afebrile and tolerating p.o. intake at time of discharge home. Although this document has been carefully reviewed, there may still be some phonetic and other typographical errors. These errors are purely grammatical due to imperfections in the software program and should not be construed in any way to compromise the substance of the patient's medical care during this visit.
[2025-03-21 15:20] LABS: HIV (1&2) Antibody Rapid Non-Reactive
--- NOTE | 2025-03-21 21:00 | PD.IMPROG ---
Documentation for date of: 03/21/25 Subjective Subjective Interval history: Patient evaluated Hemoglobin hematocrit 11.5 and 34.9 upper endoscopy showed mid and distal esophageal ulcers and GE junction ulcers Exam Vital Signs Temp Pulse Resp BP Pulse Ox O2 Del Method O2 Flow Rate 96.8 F 60 21 H 143/81 H 99 Room Air 4 03/21/25 20:00 03/21/25 20:00 03/21/25 20:00 03/21/25 20:00 03/21/25 20:00 03/21/25 20:00 03/19/25 04:00 FiO2 40 03/19/25 04:00 Objective Labs 03/21/25 05:10 03/21/25 05:10 Labs: Laboratory Results - last 24 hr 03/21/25 05:10 WBC 7.3 RBC 3.61 L Hgb 11.5 L Hct 34.9 L MCV 97 MCH 31.9 MCHC 33.0 RDW Std Deviation 50.0 H Plt Count 208 Neut % (Auto) 46 Lymph % (Auto) 30 Forrest % (Auto) 17 H Eos % (Auto) 6 Baso % (Auto) 1 Neut # (Auto) 3.4 Lymph # (Auto) 2.2 Forrest # (Auto) 1.2 H Eos # (Auto) 0.4 Baso # (Auto) 0.1 Immature Gran # (Auto) 0.01 H Absolute Nucleated RBC 0.00 Immature Gran % 0 Nucleated RBC % 0 Sodium 139 Potassium 3.9 Chloride 99 Carbon Dioxide 29.1 Anion Gap 11 BUN 21 Creatinine 1.5 H Estim Creat Clear Calc 58.3 L eGFR 52 L BUN/Creatinine Ratio 14 Glucose 140 H Calculated Osmolality 282 Calcium 9.0 Corrected Calcium 9.2 Phosphorus 3.8 Magnesium 1.8 Total Bilirubin 0.5 AST 36 H ALT 29 Alkaline Phosphatase 65 Total Protein 7.1 Albumin 3.8 Globulin 3.3 Albumin/Globulin Ratio 1.2 Hepatitis C Antibody Non Reactive HIV 1&2 Antibody Rapid Non-Reactive Impressions Impression: # GE junction ulcers Mid esophageal ulcers Distal esophageal ulcers Relatively stable hemoglobin hematocrit Continue current management discharged home either on Protonix or omeprazole 40 mg Twice a day along with Reglan 5 mg p.o. twice daily for 90 days Assessment & Plan A&P Narrative maintain other rx. bc is likely a contaminant will see again prn ordered some screens for tomorrow. call if positive Time Spent With Patient Time: Total time spent is greater than 50% in coordination of care (as documented) at patient's floor/unit and/or counseling patient:
[2025-03-21] MEDS: ATORVASTATIN CALCIUM 20 MG TABLET 40 MG PO (21:40)
[2025-03-21] MEDS: MELATONIN 3 MG TABLET 6 MG PO (21:41)
[2025-03-22] VITALS (11 sets, daily range): BP systolic 103–144; BP diastolic 70–89; PULSE 58–109; RESP 13–98; TEMP 35.9–36.4; O2SAT 94–98; BMI 43.4
[2025-03-22] MEDS: BUMETANIDE 0.5 MG TABLET 1 MG PO (09:22)
[2025-03-22] MEDS: GABAPENTIN 300 MG CAPSULE PO (09:22)
[2025-03-22] MEDS: THIAMINE 100 MG TABLET PO (09:22)
[2025-03-22] MEDS: ASPIRIN EC 81 MG TABEC PO (09:22)
[2025-03-22] MEDS: PANTOPRAZOLE 40 MG TABLET PO ×2 (09:22→20:30)
[2025-03-22] MEDS: APIXABAN 2.5 MG TABLET 5 MG PO ×2 (09:22→20:29)
[2025-03-22] MEDS: FOLIC ACID 1 MG TABLET PO (09:23)
[2025-03-22] MEDS: METOCLOPRAMIDE 5 MG TABLET PO ×2 (09:23→20:29)
--- NOTE | 2025-03-22 09:43 | PC.SS ---
SS follow up note; SS sent out packet to all LPS facilities.
--- NOTE | 2025-03-22 10:14 | ESDS_ITS ---
<Statement entered by Catrachito Montiel MD - 03/22/25 16:51> I saw and examined patient personally and supervised PGY 1 resident, Dr. Mancuso with formulating a management plan. I agree with the documentation with the exceptions as listed below. Patient is medically clear, however still awaiting placement for gravely disabled persons by rn social services. If no placement is available by tomorrow, we will discharge him to home. Plan of care discussed with Attending Dr. Jenny Montiel MD PGY 2 Disclaimer: This note was dictated by speech recognition. Minor errors in overnight stocker may be present due to voice recognition software. Planned Discharge Date 03/22/25 DS: Providers Provider Date of admission: 03/15/25 23:46 Primary care physician: Physician No Primary/Family Admitting Provider: Dayana Guillen MD Attending Provider on Admission: Deni Alvarado DO Consults: 03/16/25 00:16 Consult to Cardiology Routine Comment: For Heart failure Consulting Provider: Silver Abad 03/16/25 07:14 Consult to Gastroenterology Routine Comment: Coffee ground emesis Consulting Provider: Elicia Gifford 03/16/25 16:03 Health Equity Referral - Knowledge Deficit Routine Comment: Positive screening for knowledge deficit needs. Health Equity Referral - Nutrition Routine Comment: Positive screening for nutrition needs. Health Equity Referral - Transportation Routine Comment: Positive screening for transportation needs. 03/18/25 10:11 Referral Physical Therapy Routine Comment: Physician Instructions: 03/18/25 12:39 Referral Physical Therapy Routine Comment: Physician Instructions: Instructions: for SNF placement 03/20/25 07:56 Consult to Infectious Diseases Routine Comment: Consulting Provider: Luke Archuleta Attending Provider on DC: Deni Alvarado DO Discharging Provider: Deni Alvarado DO DS: Diagnosis Problem List Completed Was Problem List Reviewed/Reconciled?: Yes Hospital Course Hospital Course Hospital course: Hospital Course: Patient is a 64-year-old male with significant PMH of HTN, HLD, A-fib on anticoagulation, alcohol use disorder, 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, history of stroke BIBA for inability to ambulate for 2 days on 03/16/25. Was hypertensive and had coffee-ground emesis in ED. Given thiamine in ED, and admitted for acute decompensated heart failure, NSTEMI type II, upper GI bleed likely due to gastritis. Patient was started on diuresis, and had lost significant fluid by 03/17/25, with improved breathing. On 03/18/25, EGD showed esophageal ulcer and gastritis. By 03/20/25, patient was on Coreg and Bumex. By 03/21/25, patient was considered medically stable for discharge to facility by social director. By 03/22/25, had no changes in management, but social director had not found a facility as of yet. Discharge Instructions: ? We have started you on Bumex 1 mg a day. ? We have stopped your old water pill, Lasix. ? We have started you on Coreg for your heart rate and heart failure. ? We have started you on gabapentin for your diabetic nerve pain. ? We have increased your dose of spironolactone to 50 mg once a day. ? Continue taking the rest of your home medications as before ? You will have to restrict your daily liquid intake to 1.5 Litres / 50 ounces per day. This includes water, teas, coffees and soups. ? You will have to follow a low salt diet for the rest of your life. This means no [place]orese food or fast food. ? You will have to take your weight daily. If your weight increases by more than 2-3 pounds in 1-2 days, take an extra water pill that day. ? You will have to measure your blood pressure daily. If the top number is less than 100, do not take your blood pressure medications that day. ? Keep a log of your blood pressures to take to your primary doctor and automobile service advisor. - Follow up with your automobile service advisor or automobile service advisor, Dr. Abad outpatient. His office number is [phone]. Please see a automobile service advisor within 1-2 weeks of discharge - Follow up with your primary care physician within 1 week of discharge. If you do not have a primary care physician, please follow up with the [facility] Residents clinic ([phone]) ? If you experience any new, worsening or persistent symptoms either call your primary doctor, or dial 911 or present to the emergency department. Problem List: #AHRF secondary to #Newly-diagnosed CHF #Hyponatremia (resolved) #Elevated Troponins (possibly representing end organ damage) Secondary to #Hypertensive emergency, resolved #NSTEMI Type I vs II #Coffee-ground emesis #Upper GI Bleed? #Acute Normocytic Anemia likely due to #Iron deficiency #UTI #Diabetes #AUD #Hx of CVA #Hyperlipidemia? #AFib #Third degree heart block #Lactic Acidosis (Resolved) Status at Discharge Functional status at discharge: uses cane/walker Overall status at discharge: patient is progressing back to baseline Time Spent with Patient Time attestation: Total time spent providing and/or coordinating discharge services: Time spent: Greater than 30 minutes Exam Vital Signs Temp Pulse Resp BP Pulse Ox O2 Del Method O2 Flow Rate 97.3 F 60 18 144/89 H 96 Room Air 4 03/22/25 08:00 03/22/25 09:22 03/22/25 08:00 03/22/25 09:22 03/22/25 08:00 03/22/25 08:00 03/19/25 04:00 FiO2 40 03/19/25 04:00 Narrative Exam General: A/O x3, no acute distress, well-nourished, well-developed. Cambodian- speaking only. Eyes: PERRL, EOMI. Anicteric, vision grossly intact. Ears: No ear pain, no ear discharge, Hearing grossly intact. Nose: No nasal discharge. Mouth/Throat: Moist mucous membranes, no redness, no lesions. Neck: Neck supple, non-tender, no cervical lymphadenopathy. Lungs: Clear IFEOMA to auscultation and percussion, No accessory muscle use. Cardio: Normal S1/S2, regular rhythm, no murmurs, no JVD or carotid bruits. Abdomen: Soft, distended non-tender, no palpable masses, peristalsis present, no guarding or rebound. Extremities: Symmetrical, no significant deformities, trace lower extremity pitting edema, non-tender, peripheral pulses present. Skin: No rashes, no lesions, warm to touch. Neuro: No focal neurological deficits. Psych: Cooperative. Discharge Plan Plan Patient Disposition: HOME (Self Care) Patient condition on transfer: Stable and Benefits outweigh risks Care Plan Goals: ? We have started you on Bumex 1 mg a day. ? We have stopped your old water pill, Lasix. - You have been started on omeprazole for your esophageal ulcers and reglan ? We have started you on Coreg for your heart rate and heart failure. ? We have started you on gabapentin for your diabetic nerve pain. ? We have held your spironolactone due to your Kidney injury. See your Instrument Adjuster to start GDMT for heart Failure ? Continue taking the rest of your home medications as before ? You will have to restrict your daily liquid intake to 1.5 Litres / 50 ounces per day. This includes water, teas, coffees and soups. ? You will have to follow a low salt diet for the rest of your life. This means no [place] food or fast food. ? You will have to take your weight daily. If your weight increases by more than 2-3 pounds in 1-2 days, take an extra water pill that day. ? You will have to measure your blood pressure daily. If the top number is less than 100, do not take your blood pressure medications that day. ? Keep a log of your blood pressures to take to your primary doctor and automobile service advisor. - Follow up with your automobile service advisor or automobile service advisor, Dr. Abad outpatient. His office number is [phone]. Please see a automobile service advisor within 1-2 weeks of discharge - Follow up with your primary care physician within 1 week of discharge. If you do not have a primary care physician, please follow up with the [facility] Residents clinic ([phone]) ? If you experience any new, worsening or persistent symptoms either call your primary doctor, or dial 911 or present to the emergency department. Prescriptions/Referrals Prescriptions/Med Rec: New atorvastatin [Lipitor] 40 mg tablet 40 mg PO HS 30 Days Qty: 30 0RF bumetanide 1 mg tablet 1 mg PO QDAY 30 Days Qty: 30 0RF gabapentin 300 mg Capsule 300 mg PO QDAY 30 Days Qty: 30 0RF folic acid 1 mg Tablet 1 mg PO QDAY 7 Days Qty: 7 0RF thiamine mononitrate (vit B1) 100 mg Tablet 100 mg PO QDAY 30 Days Qty: 30 0RF carvedilol 12.5 mg Tablet 12.5 mg PO BIDWM 30 Days Qty: 60 0RF omeprazole 40 mg capsule,delayed release(DR/EC) 40 mg PO BID 30 Days Qty: 60 2RF metoclopramide HCl [Reglan] 5 mg tablet 5 mg PO BIDWMEAL 30 Days Qty: 60 2RF Continued Eliquis 5 mg tablet 5 mg PO QDAY 30 Days Qty: 30 2RF Patient Comments: TOME 1 TABLETA POR LA BOCA 2 VECES AL RAEGAN (TAKE 1 TABLET BY MOUTH 2 TIMES A DAY) Discontinued furosemide 40 mg tablet 40 mg PO QDAY Patient Comments: TAKE 1 TABLET BY MOUTH EVERY DAY spironolactone 25 mg tablet 12.5 mg PO QDAY Patient Comments: TAKE 1/2 TABLET BY MOUTH DAILY atorvastatin 80 mg tablet 80 mg PO QDAY Patient Comments: TOME 1 TABLETA POR LA BOCA DIANNE VEZ AL RAEGAN POR 90 [place] (TAKE 1 TABLET BY MOUTH DAILY FOR 90 DAYS) Referrals: [facility] [Outside] Silver Abad MD [Physician, Cardiology] No Primary/Family,Physician [Primary Care Provider] Outpatient Orders (i.e. Home Health, Labs, Imaging): Renal Function Panel (Routine) Timeframe: 1 Week Location: Determined by Patient Ordered By: Catrachito Montiel Patient/Caregiver Discharge Instructions Education Materials: Heart Failure Meds, Heart Failure: Tracking Your Weight, Coping with Heart Failure, Heart Failure: Evaluating Your Heart Print Language: Cambodian Stand Alone Forms: Angélica Award Info., Patient Portal Info Letter Discharge Order Discharge Orders: Discharge (Routine); Ordered 03/23/25 Ordered By: Catrachito Montiel Quality Discharge Quality Measures none MD Attestestation MD Attestation I have discussed and was present for the essential components of the discharge history, physical examination, diagnosis, and discharge treatment plan with the resident. I agree with the patient's discharge care as documented by the resident and amended herein by me. Jaya Alvarado DO. The patient understood all discharge instructions, all questions were answered satisfactorily. The patient was instructed to return to the Emergency Department is symptoms worsened or persisted. Although this document has been carefully reviewed, there may still be some phonetic and other typographical errors. These errors are purely grammatical due to imperfections in the software program and should not be construed in any way to compromise the substance of the patient's medical care during this visit.
--- NOTE | 2025-03-22 12:24 | ESPR_ITS ---
Documentation for date of: 03/22/25 Subjective Subjective Interval history: Patient seen and examined at bedside, continues to have edema however significant improvement compared to admission, no orthopnea, shortness of breath. No overnight events, labs and vitals reviewed. Continue Bumex 1 mg p.o. daily Continue Coreg 12.5 twice daily for blood pressure control, hold spironolactone/DYLAN/ARB/ARNI. Plan to decrease Coreg dose outpatient and start patient on DYLAN/ARB/ARNI and spironolactone once CLARITA has resolved. Patient on suicidal precautions, further workup per primary team. Exam Vital Signs Temp Pulse Resp BP Pulse Ox O2 Del Method O2 Flow Rate 97.4 F 60 15 103/72 94 L Room Air 4 03/22/25 12:00 03/22/25 12:00 03/22/25 12:00 03/22/25 12:00 03/22/25 12:00 03/22/25 12:00 03/19/25 04:00 FiO2 40 03/19/25 04:00 Narrative Exam General: Awake and in no acute distress. Conversational and non-toxic appearing. HEENT: Normocephalic, atraumatic, mucous membranes moist. On room air. Heart: Regular rate and rhythm, no murmurs. Lungs: Clear to auscultation with no wheezing or crackles. Abdomen: Soft, obese, distended, nontender, positive bowel sounds. No guarding or rebound tenderness. Neurologic: Alert and oriented x3, no gross neurological deficit, and patient able to move all 4 extremities. Extremities: Trace bilateral lower extremity edema Skin: No rash or ecchymoses. Objective Labs 03/21/25 05:10 03/21/25 05:10 Labs: Laboratory Results - last 24 hr 03/21/25 05:10 HIV 1&2 Antibody Rapid Non-Reactive Quality Measures Quality Measures none Assessment & Plan Assessment Current Active Medications: Generic Name Dose Route Start Last Admin Trade Name Freq PRN Reason Stop Dose Admin Acetaminophen 650 mg 03/15/25 23:46 Acetaminophen 325 Mg Tablet PO 04/14/25 23:45 Q6H PRN Fever >100.4 Apixaban 5 mg 03/16/25 21:00 03/22/25 09:22 Apixaban 2.5 Mg Tablet PO 04/15/25 20:59 5 mg BID HANG Administration Aspirin 81 mg 03/16/25 09:00 03/22/25 09:22 Aspirin Ec 81 Mg Tabec PO 04/15/25 08:59 81 mg DAILY HANG Administration Atorvastatin Calcium 40 mg 03/17/25 21:00 03/21/25 21:40 Atorvastatin Calcium 20 Mg Tablet PO 04/16/25 20:59 40 mg HS HANG Administration Bumetanide 1 mg 03/20/25 09:00 03/22/25 09:22 Bumetanide 0.5 Mg Tablet PO 04/19/25 08:59 1 mg QDAY HANG Administration Carvedilol 12.5 mg 03/21/25 21:00 03/22/25 07:45 Carvedilol 12.5 Mg Tablet PO 04/20/25 20:59 12.5 mg BIDWM HANG Administration Cephalexin HCl 500 mg 03/20/25 14:00 03/22/25 05:10 Cephalexin 250 Mg Capsule PO 03/23/25 12:00 500 mg TID HANG Administration Folic Acid 1 mg 03/16/25 09:00 03/22/25 09:23 Folic Acid 1 Mg Tablet PO 04/15/25 08:59 1 mg QDAY HANG Administration Gabapentin 300 mg 03/18/25 10:15 03/22/25 09:22 Gabapentin 300 Mg Capsule PO 04/17/25 10:14 300 mg QDAY HANG Administration Metoclopramide HCl 5 mg 03/22/25 09:00 03/22/25 09:23 Metoclopramide 5 Mg Tablet PO 04/21/25 08:59 5 mg BID HANG Administration Pantoprazole Sodium 40 mg 03/17/25 21:00 03/22/25 09:22 Pantoprazole 40 Mg Tablet PO 04/16/25 20:59 40 mg BID HANG Administration Protocol Sennosides 8.8 mg 03/18/25 12:38 Sennosides Syrup 8.8 Mg/5 Ml Udc PO 04/17/25 12:37 QDAY PRN CONSTIPATION Protocol Thiamine HCl 100 mg 03/16/25 09:00 03/22/25 09:22 Thiamine 100 Mg Tablet PO 04/15/25 08:59 100 mg QDAY HANG Administration Plan Mr. Fields is a 64-year-old male with past medical history of hypertension, hyperlipidemia, atrial fibrillation, third-degree heart block status post pacemaker placement at [facility], Stroke/TIA, alcohol use and prediabetes who presented to [facility] emergency department with a chief complaint of difficulty walking. Patient found to have bilateral lower extremity edema, admitted for new onset CHF and possible acute decompensated heart failure. #Acute decompensated heart failure, improving #New onset mild systolic CHF exacerbation #Heart failure with mildly reduced ejection fraction, EF 45 to 50%, 03/16/2025 #Dilated cardiomyopathy Patient presented with bilateral lower extremity edema, endorses some shortness of breath currently on high flow nasal cannula. Patient has longstanding history of hypertension, prediabetes, history of atrial fibrillation with history of third-degree heart block with status post pacemaker placement at [facility]. History of significant alcohol use in the past BNP on presentation 569 03/18-Patient diuresed with Lasix 40 3 times daily, net hospital negative -5 L, had CLARITA 03/17 and diuresis was continued, creatinine up trended to 1.8 today Echo done 03/16/25 showed Overall poor quality images and suboptimal study. 2. Left ventricle size is mildly enlarged and systolic showe function is mildly reduced. Estimated ejection fraction is 45-50%. There is stage 1 diastolic dysfunction. 3. Right ventricle chamber size is mildly enlarged and systolic function is normal. Estimated RVSP is 32 mmHg with RAP 8. 4. There is mild mitral and tricuspid valve regurgitation. Mild AV sclerosis without stenosis. 5. The left atrium is severely enlarged. The right atrium is severely enlarged. 6. Dilated cardiomyopathy. Recommendations: - Continue Bumex 1 mg p.o. daily, hold spironolactone. - Strict intake and output, daily weight, fluid restriction 1500 cc - Continue Coreg 12.5 mg p.o. twice daily, hold DYLAN/ARB/ARNI in setting of CLARITA. - Still has CLARITA, will consider starting patient on DYLAN/ARB/ARNI and spironolactone outpatient. #NSTEMI type II, demand ischemia Patient denies any chest pain, troponin on presentation 0.079 which downtrended to 0.057 EKG was negative for any acute ST-T changes Patient's troponin elevation likely secondary to demand ischemia - Monitor for chest pain - Continue aspirin and atorvastatin - Patient will need outpatient ischemia workup for CAD #Atrial fibrillation Patient has history of atrial fibrillation, on Eliquis at home Patient had brown-colored emesis in the ED, concern of GI bleed, GI bleed workup initiated by primary team. [id number] score: 5 points ?Continue Eliquis ?Keep potassium greater than 4 and magnesium greater than 2 at all times #Third-degree heart block status post pacemaker placement Patient has history of pacemaker placement, was transferred from [facility] in the past to [facility] where apparently the pacemaker was placed. #Hypertension Monitor blood pressure, introduce GDMT as blood pressure is permissible and CLARITA resolves. ?Continue Coreg. #Hyperlipidemia Lipid panel shows cholesterol 132, triglycerides 37, LDL 54, HDL 71 Per ASCVD risk algorithm, atorvastatin recommended - Continue atorvastatin 40 mg at bedtime #Upper GI bleed, esophageal ulcers #Nonbleeding duodenal ulcer [place] class III #Acute kidney injury #Prediabetes #Alcohol dependence #History of stroke/TIA ?Management per primary team Thank you for the consult and allowing to participate in the care of the patient. Cardiology will continue to follow. Case discussed with Attending Physician Dr. Silver Terrazas MD Internal Medicine PGY-2 Disclaimer: This note was dictated by speech recognition. Minor errors in newspaper photo editor may be present due to voice recognition software. Attending Provider Attestation/Addendum I have personally seen and examined the patient separately on the above date of service and discussed the plan of care with the resident. I reviewed the resident Dr. Ralph Cedeño / Agustín Terrazas consultation progress note and agree with the resident findings and plan in the note above and have also edited the documentation to reflect my findings and plan. Silver Abad M.D. Interventional Cardiology
--- NOTE | 2025-03-22 12:47 | PC.CC ---
NIESHA Pickens, was contacted by [facility]PS for patient disposition
--- NOTE | 2025-03-22 15:00 | PC.SS ---
SS followed up with the following [facility] facilities: [facility]; Faxed in review [facility]: will contact SS if able to accept [facility]: [facility]: in review [facility]: unable to accept patient [facility]: In review [facility]: asked to refax [facility]: in review [facility]: unable to accept due to medical reasons [facility]: asked to re-fax [facility]: In review [facility]: Fax [facility]: Unable to accept at the time [facility]: in review [facility]: Faxed [facility]: unable to accept patient at the time
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
--- NOTE | 2025-03-22 19:37 | PD.IMPROG ---
Documentation for date of: 03/22/25 Subjective Subjective Interval history: Hemoglobin hematocrit 11.5 and 34.9 Exam Vital Signs Temp Pulse Resp BP Pulse Ox O2 Del Method O2 Flow Rate 97.5 F 58 L 18 122/76 96 Room Air 4 03/22/25 16:00 03/22/25 18:55 03/22/25 18:55 03/22/25 16:57 03/22/25 16:00 03/22/25 16:00 03/19/25 04:00 FiO2 40 03/19/25 04:00 Objective Labs 03/21/25 05:10 03/21/25 05:10 Impressions Impression: # Mid esophageal ulcer and distal esophageal ulcer # GE junction ulceration # Anemia blood loss hemoglobin hematocrit relatively stable Continue current management Assessment & Plan A&P Narrative maintain other rx. bc is likely a contaminant will see again prn ordered some screens for tomorrow. call if positive Time Spent With Patient Time: Total time spent is greater than 50% in coordination of care (as documented) at patient's floor/unit and/or counseling patient:
[2025-03-22] MEDS: ACETAMINOPHEN 325 MG TABLET 650 MG PO (20:29)
[2025-03-22] MEDS: MELATONIN 3 MG TABLET 6 MG PO (20:29)
[2025-03-22] MEDS: ATORVASTATIN CALCIUM 20 MG TABLET 40 MG PO (20:30)
[2025-03-23] VITALS (8 sets, daily range): BP systolic 101–143; BP diastolic 62–83; PULSE 56–98; RESP 13–97; TEMP 36.1–36.7; O2SAT 96–99
[2025-03-23] MEDS: METOCLOPRAMIDE 5 MG TABLET PO (08:07)
[2025-03-23] MEDS: PANTOPRAZOLE 40 MG TABLET PO (08:07)
[2025-03-23] MEDS: FOLIC ACID 1 MG TABLET PO (08:07)
[2025-03-23] MEDS: THIAMINE 100 MG TABLET PO (08:07)
[2025-03-23] MEDS: GABAPENTIN 300 MG CAPSULE PO (08:07)
[2025-03-23] MEDS: ASPIRIN EC 81 MG TABEC PO (08:07)
[2025-03-23] MEDS: BUMETANIDE 0.5 MG TABLET 1 MG PO (08:08)
[2025-03-23] MEDS: APIXABAN 2.5 MG TABLET 5 MG PO (08:09)
--- NOTE | 2025-03-23 09:34 | ESPR_ITS ---
Documentation for date of: 03/23/25 Subjective Subjective Interval history: Patient seen and examined at bedside, continues to have edema however significant improvement compared to admission. Continue Bumex 1 mg p.o. daily Currently on Coreg 12.5 mg twice daily for blood pressure control, continue. Will start patient on DYLAN/ARB/ARNI outpatient depending on renal function. Patient will be discharged today. Follow-up outpatient in cardiology office within 1 week. Exam Vital Signs Temp Pulse Resp BP Pulse Ox O2 Del Method O2 Flow Rate 96.9 F 63 13 130/83 97 Room Air 4 03/23/25 08:00 03/23/25 08:08 03/23/25 08:00 03/23/25 08:08 03/23/25 08:00 03/23/25 08:00 03/19/25 04:00 FiO2 40 03/19/25 04:00 Narrative Exam General: Awake and in no acute distress. Conversational and non-toxic appearing. HEENT: Normocephalic, atraumatic, mucous membranes moist. On room air. Heart: Regular rate and rhythm, no murmurs. Lungs: Clear to auscultation with no wheezing or crackles. Abdomen: Soft, obese, distended, nontender, positive bowel sounds. No guarding or rebound tenderness. Neurologic: Alert and oriented x3, no gross neurological deficit, and patient able to move all 4 extremities. Extremities: Trace bilateral lower extremity edema Skin: No rash or ecchymoses. Objective Labs 03/21/25 05:10 03/21/25 05:10 Quality Measures Quality Measures none Assessment & Plan Assessment Current Active Medications: Generic Name Dose Route Start Last Admin Trade Name Freq PRN Reason Stop Dose Admin Acetaminophen 650 mg 03/22/25 19:58 03/22/25 20:29 Acetaminophen 325 Mg Tablet PO 04/14/25 23:45 650 mg Q6H PRN Administration Fever >100.4 AND PAIN Apixaban 5 mg 03/16/25 21:00 03/23/25 08:09 Apixaban 2.5 Mg Tablet PO 04/15/25 20:59 5 mg BID HANG Administration Aspirin 81 mg 03/16/25 09:00 03/23/25 08:07 Aspirin Ec 81 Mg Tabec PO 04/15/25 08:59 81 mg DAILY HANG Administration Atorvastatin Calcium 40 mg 03/17/25 21:00 03/22/25 20:30 Atorvastatin Calcium 20 Mg Tablet PO 04/16/25 20:59 40 mg HS HANG Administration Bumetanide 1 mg 03/20/25 09:00 03/23/25 08:08 Bumetanide 0.5 Mg Tablet PO 04/19/25 08:59 1 mg QDAY HANG Administration Carvedilol 12.5 mg 03/21/25 21:00 03/23/25 08:07 Carvedilol 12.5 Mg Tablet PO 04/20/25 20:59 12.5 mg BIDWM HANG Administration Cephalexin HCl 500 mg 03/20/25 14:00 03/23/25 05:28 Cephalexin 250 Mg Capsule PO 03/23/25 12:00 500 mg TID HANG Administration Folic Acid 1 mg 03/16/25 09:00 03/23/25 08:07 Folic Acid 1 Mg Tablet PO 04/15/25 08:59 1 mg QDAY HANG Administration Gabapentin 300 mg 03/18/25 10:15 03/23/25 08:07 Gabapentin 300 Mg Capsule PO 04/17/25 10:14 300 mg QDAY HANG Administration Metoclopramide HCl 5 mg 03/22/25 09:00 03/23/25 08:07 Metoclopramide 5 Mg Tablet PO 04/21/25 08:59 5 mg BID HANG Administration Pantoprazole Sodium 40 mg 03/17/25 21:00 03/23/25 08:07 Pantoprazole 40 Mg Tablet PO 04/16/25 20:59 40 mg BID HANG Administration Protocol Sennosides 8.8 mg 03/18/25 12:38 Sennosides Syrup 8.8 Mg/5 Ml Udc PO 04/17/25 12:37 QDAY PRN CONSTIPATION Protocol Thiamine HCl 100 mg 03/16/25 09:00 03/23/25 08:07 Thiamine 100 Mg Tablet PO 04/15/25 08:59 100 mg QDAY HANG Administration Plan Mr. Fields is a 64-year-old male with past medical history of hypertension, hyperlipidemia, atrial fibrillation, third-degree heart block status post pacemaker placement at [facility], Stroke/TIA, alcohol use and prediabetes who presented to [facility] emergency department with a chief complaint of difficulty walking. Patient found to have bilateral lower extremity edema, admitted for new onset CHF and possible acute decompensated heart failure. #Acute decompensated new onset mild systolic CHF exacerbation #Heart failure with mildly reduced ejection fraction, EF 45 to 50%, 03/16/2025 #Dilated cardiomyopathy Patient presented with bilateral lower extremity edema, endorses some shortness of breath currently on high flow nasal cannula. Patient has longstanding history of hypertension, prediabetes, history of atrial fibrillation with history of third-degree heart block with status post pacemaker placement at [facility]. History of significant alcohol use in the past BNP on presentation 569 03/18-Patient diuresed with Lasix 40 3 times daily, net hospital negative -5 L, had CLARITA 03/17 and diuresis was continued, creatinine up trended to 1.8 today Echo done 03/16/25 showed Overall poor quality images and suboptimal study. 2. Left ventricle size is mildly enlarged and systolic showe function is mildly reduced. Estimated ejection fraction is 45-50%. There is stage 1 diastolic dysfunction. 3. Right ventricle chamber size is mildly enlarged and systolic function is normal. Estimated RVSP is 32 mmHg with RAP 8. 4. There is mild mitral and tricuspid valve regurgitation. Mild AV sclerosis without stenosis. 5. The left atrium is severely enlarged. The right atrium is severely enlarged. 6. Dilated cardiomyopathy. Recommendations: - Continue Bumex 1 mg p.o. daily, hold spironolactone. - Strict intake and output, daily weight, fluid restriction 1500 cc - Continue Coreg 12.5 mg p.o. twice daily, hold DYLAN/ARB/ARNI in setting of CLARITA. - Still has CLARITA, will consider starting patient on DYLAN/ARB/ARNI and spironolactone outpatient. #NSTEMI type II, demand ischemia Patient denies any chest pain, troponin on presentation 0.079 which downtrended to 0.057 EKG was negative for any acute ST-T changes Patient's troponin elevation likely secondary to demand ischemia - Monitor for chest pain - Continue aspirin and atorvastatin - Patient will need outpatient ischemia workup for CAD #Atrial fibrillation Patient has history of atrial fibrillation, on Eliquis at home Patient had brown-colored emesis in the ED, concern of GI bleed, GI bleed workup initiated by primary team. [id number] score: 5 points ?Continue Eliquis ?Keep potassium greater than 4 and magnesium greater than 2 at all times #Third-degree heart block status post pacemaker placement Patient has history of pacemaker placement, was transferred from [facility] in the past to [facility] where apparently the pacemaker was placed. Per chest x-ray review patient likely has dual-chamber pacemaker. #Hypertension Monitor blood pressure, introduce GDMT as blood pressure is permissible and CLARITA resolves. ?Continue Coreg. #Hyperlipidemia Lipid panel shows cholesterol 132, triglycerides 37, LDL 54, HDL 71 Per ASCVD risk algorithm, atorvastatin recommended - Continue atorvastatin 40 mg at bedtime #Upper GI bleed, esophageal ulcers #Nonbleeding duodenal ulcer [place] class III #Acute kidney injury #Prediabetes #Alcohol dependence #History of stroke/TIA ?Management per primary team Thank you for the consult and allowing to participate in the care of the patient. Cardiology will continue to follow. Case discussed with Attending Physician Dr. Silver Terrazas MD Internal Medicine PGY-2 Disclaimer: This note was dictated by speech recognition. Minor errors in farm worker may be present due to voice recognition software. Attending Provider Attestation/Addendum I have personally seen and examined the patient separately on the above date of service and discussed the plan of care with the resident. I reviewed the resident Dr. Agustín Terrazas consultation progress note and agree with the resident findings and plan in the note above and have also edited the documentation to reflect my findings and plan. Silver Abad M.D. Interventional Cardiology
--- NOTE | 2025-03-23 09:55 | PC.CC ---
NIESHA Pickens spoke with patient sister Azul via phone. Patient sister reports that she is willing to take patient to her home at [address] [facility] at time of d/c. Patient sister reports that she and her are both retired and will be able to care for patient 24 hour. Patient sisters only concern is that they do not have transportation to take patient to doctor appointments. Patient sister states that she has spoken to patient and he willing to go home with her. Patient sister will make sure patient is taking his medication will monitor patient. Patient sister is willing to place sharps, medication, ligatures and chemicals away although she does not feel that patient has any thoughts of harming self. Patient sister will also make sure that patient does not consume a lot of alcohol. NIESHA had previous spoke with Dr. Mae and will update him once NIESHA speaks with patient.
--- NOTE | 2025-03-23 11:35 | PC.NURSE ---
awaiting for social worker palliative care to clear patient to go home.
--- NOTE | 2025-03-23 12:39 | ESDS_ITS ---
<Statement entered by Catrachito Montiel MD - 03/23/25 13:50> I saw and examined patient personally and supervised PGY 1 resident, Dr. Mancuso with formulating a discharge plan. I agree with the documentation as listed below. Plan of care discussed with Attending Dr. Brittney Montiel MD PGY 2 Disclaimer: This note was dictated by speech recognition. Minor errors in boiler helper may be present due to voice recognition software. Planned Discharge Date 03/23/25 DS: Providers Provider Date of admission: 03/15/25 23:46 Primary care physician: Physician No Primary/Family Admitting Provider: Dayana Guillen MD Attending Provider on Admission: Deni Alvarado DO Consults: 03/16/25 00:16 Consult to Cardiology Routine Comment: For Heart failure Consulting Provider: Silver Abad 03/16/25 07:14 Consult to Gastroenterology Routine Comment: Coffee ground emesis Consulting Provider: Elicia Gifford 03/16/25 16:03 Health Equity Referral - Knowledge Deficit Routine Comment: Positive screening for knowledge deficit needs. Health Equity Referral - Nutrition Routine Comment: Positive screening for nutrition needs. Health Equity Referral - Transportation Routine Comment: Positive screening for transportation needs. 03/18/25 10:11 Referral Physical Therapy Routine Comment: Physician Instructions: 03/18/25 12:39 Referral Physical Therapy Routine Comment: Physician Instructions: Instructions: for SNF placement 03/20/25 07:56 Consult to Infectious Diseases Routine Comment: Consulting Provider: Luke Archuleta Attending Provider on DC: Cristal Lugo MD Discharging Provider: Cristal Lugo MD DS: Diagnosis Problem List Completed Was Problem List Reviewed/Reconciled?: Yes Hospital Course Hospital Course Hospital course: Hospital Course: Patient is a 64-year-old male with significant PMH of HTN, HLD, A-fib on anticoagulation, alcohol use disorder, 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 Was hypertensive and had coffee-ground emesis in ED. Given thiamine in ED, and admitted for acute decompensated heart failure, NSTEMI type II, upper GI bleed likely due to gastritis. Patient was started on diuresis, and had lost significant fluid by 03/17/25, with improved breathing. On 03/18/25, EGD showed esophageal ulcer and gastritis. By 03/20/25, patient was on Coreg and Bumex. By 03/21/25, patient was considered medically stable for discharge to facility by secondary social studies teacher. By 03/22/25, had no changes in management, but secondary social studies teacher had not found a facility as of yet. Patient discharged to care of sister on 03/23/25. Discharge Instructions: ? We have started you on Bumex 1 mg a day. ? We have stopped your old water pill, Lasix. ? We have started you on Coreg for your heart rate and heart failure. ? We have started you on gabapentin for your diabetic nerve pain. ? We have increased your dose of spironolactone to 50 mg once a day. ? Continue taking the rest of your home medications as before ? You will have to restrict your daily liquid intake to 1.5 Litres / 50 ounces per day. This includes water, teas, coffees and soups. ? You will have to follow a low salt diet for the rest of your life. This means no Czech food or fast food. ? You will have to take your weight daily. If your weight increases by more than 2-3 pounds in 1-2 days, take an extra water pill that day. ? You will have to measure your blood pressure daily. If the top number is less than 100, do not take your blood pressure medications that day. ? Keep a log of your blood pressures to take to your primary doctor and urban forester. - Follow up with your urban forester or urban forester, Dr. Abad outpatient. His office number is [phone]. Please see a urban forester within 1-2 weeks of discharge - Follow up with your primary care physician within 1 week of discharge. If you do not have a primary care physician, please follow up with the [facility] Residents clinic ([phone]) ? If you experience any new, worsening or persistent symptoms either call your primary doctor, or dial 911 or present to the emergency department. Problem List: #AHRF secondary to #Newly-diagnosed CHF #Hyponatremia (resolved) #Elevated Troponins (possibly representing end organ damage) Secondary to #Hypertensive emergency, resolved #NSTEMI Type I vs II #Coffee-ground emesis #Upper GI Bleed? #Acute Normocytic Anemia likely due to #Iron deficiency #UTI #Diabetes #AUD #Hx of CVA #Hyperlipidemia? #AFib #Third degree heart block #Lactic Acidosis (Resolved) Status at Discharge Functional status at discharge: uses cane/walker Overall status at discharge: patient is progressing back to baseline Time Spent with Patient Time attestation: Total time spent providing and/or coordinating discharge services: 32 minutes Time spent: Greater than 30 minutes Exam Vital Signs Temp Pulse Resp BP Pulse Ox O2 Del Method O2 Flow Rate 97.1 F 90 14 122/74 96 Room Air 4 03/23/25 12:00 03/23/25 12:00 03/23/25 12:00 03/23/25 12:00 03/23/25 12:00 03/23/25 12:00 03/19/25 04:00 FiO2 40 03/19/25 04:00 Narrative Exam General: A/O x3, no acute distress, well-nourished, well-developed. Marshallese- speaking only. Eyes: PERRL, EOMI. Anicteric, vision grossly intact. Ears: No ear pain, no ear discharge, Hearing grossly intact. Nose: No nasal discharge. Mouth/Throat: Moist mucous membranes, no redness, no lesions. Neck: Neck supple, non-tender, no cervical lymphadenopathy. Lungs: Clear IFEOMA to auscultation and percussion, No accessory muscle use. Cardio: Normal S1/S2, regular rhythm, no murmurs, no JVD or carotid bruits. Abdomen: Soft, distended non-tender, no palpable masses, peristalsis present, no guarding or rebound. Extremities: Symmetrical, no significant deformities, trace lower extremity pitting edema, non-tender, peripheral pulses present. Skin: No rashes, no lesions, warm to touch. Neuro: No focal neurological deficits. Psych: Cooperative. Discharge Plan Plan Patient Disposition: HOME (Self Care) Patient condition on transfer: Stable and Benefits outweigh risks Care Plan Goals: ? We have started you on Bumex 1 mg a day. ? We have stopped your old water pill, Lasix. - You have been started on omeprazole for your esophageal ulcers and reglan ? We have started you on Coreg for your heart rate and heart failure. ? We have started you on gabapentin for your diabetic nerve pain. ? We have held your spironolactone due to your Kidney injury. See your Body Technician to start GDMT for heart Failure ? Continue taking the rest of your home medications as before ? You will have to restrict your daily liquid intake to 1.5 Litres / 50 ounces per day. This includes water, teas, coffees and soups. ? You will have to follow a low salt diet for the rest of your life. This means no [place] food or fast food. ? You will have to take your weight daily. If your weight increases by more than 2-3 pounds in 1-2 days, take an extra water pill that day. ? You will have to measure your blood pressure daily. If the top number is less than 100, do not take your blood pressure medications that day. ? Keep a log of your blood pressures to take to your primary doctor and cardiolo gist. - Follow up with your urban forester or urban forester, Dr. Abad outpatient. His office number is [phone]. Please see a urban forester within 1-2 weeks of discharge - Follow up with your primary care physician within 1 week of discharge. If you do not have a primary care physician, please follow up with the [facility] Residents clinic ([phone]) ? If you experience any new, worsening or persistent symptoms either call your primary doctor, or dial 911 or present to the emergency department. Prescriptions/Referrals Prescriptions/Med Rec: New atorvastatin [Lipitor] 40 mg tablet 40 mg PO HS 30 Days Qty: 30 0RF bumetanide 1 mg tablet 1 mg PO QDAY 30 Days Qty: 30 0RF gabapentin 300 mg Capsule 300 mg PO QDAY 30 Days Qty: 30 0RF folic acid 1 mg Tablet 1 mg PO QDAY 7 Days Qty: 7 0RF thiamine mononitrate (vit B1) 100 mg Tablet 100 mg PO QDAY 30 Days Qty: 30 0RF carvedilol 12.5 mg Tablet 12.5 mg PO BIDWM 30 Days Qty: 60 0RF omeprazole 40 mg capsule,delayed release(DR/EC) 40 mg PO BID 30 Days Qty: 60 2RF metoclopramide HCl [Reglan] 5 mg tablet 5 mg PO BIDWMEAL 30 Days Qty: 60 2RF Continued Eliquis 5 mg tablet 5 mg PO QDAY 30 Days Qty: 30 2RF Patient Comments: TOME 1 TABLETA POR LA BOCA 2 VECES AL RAEGAN (TAKE 1 TABLET BY MOUTH 2 TIMES A DAY) Discontinued furosemide 40 mg tablet 40 mg PO QDAY Patient Comments: TAKE 1 TABLET BY MOUTH EVERY DAY spironolactone 25 mg tablet 12.5 mg PO QDAY Patient Comments: TAKE 1/2 TABLET BY MOUTH DAILY atorvastatin 80 mg tablet 80 mg PO QDAY Patient Comments: TOME 1 TABLETA POR LA BOCA DIANNE VEZ AL RAEGAN POR 90 [place] (TAKE 1 TABLET BY MOUTH DAILY FOR 90 DAYS) Referrals: [facility] [Outside] Silver Abad MD [Physician, Cardiology] No Primary/Family,Physician [Primary Care Provider] Outpatient Orders (i.e. Home Health, Labs, Imaging): Renal Function Panel (Routine) Timeframe: 1 Week Location: Determined by Patient Ordered By: Catrachito Montiel Patient/Caregiver Discharge Instructions Education Materials: Heart Failure Meds, Heart Failure: Tracking Your Weight, Coping with Heart Failure, Heart Failure: Evaluating Your Heart Print Language: Marshallese Stand Alone Forms: Angélica Award Info., Patient Portal Info Letter Discharge Order Discharge Orders: Discharge (Routine); Ordered 03/23/25 Ordered By: Catrachito Montiel Quality Discharge Quality Measures none MD Attestestation MD Attestation I have seen and examined the patient. I was physically present for the kimbrough portions of the services provided including history, physical exam, diagnosis, treatment plans and orders. I agree with assessment and plan of care as documented by residents. Even though this this note was carefully revised there may still be minor errors in boiler helper due to voice recognition software. Cristal Lugo MD
--- NOTE | 2025-03-23 13:26 | PC.CC ---
NIESHA Pickens and KENNY Guidry met with patient at bedside to assess patient mental health needs and discuss discharge plan. Patient is a 64 male placed on a 5150 hold for GD and DTS (Gravely Disabled and Danger to self). Patient was at bedside with sister and sister in-law. NETWORK SYSTEMS ADMINISTRATOR explained her role and went over confidentiality and limits. NETWORK SYSTEMS ADMINISTRATOR explained that they are a mandated reproter. NIESHA Pickens asked patient if he was having any suicidal ideation, homicidal ideation, auditory hallucination or visual hallucination. Patient denied all. Patient stated that in the past he had thoughts of harming self in the past over 10 years ago but at this time he has no plan or intent to act on them. NETWORK SYSTEMS ADMINISTRATOR spoke with patient and patient sister and sister agreed to take patient to her home at [address]. Patient sister Azul phone is . Patient sister will remove all sharps, medication and chemicals from the home. Patient sister is willing to keep in eye on patient for the next 72 hours, as well as care for patient 24 hours a day. NIESHA provided resources to National Suicide, 988, Crisis and informed her that if she needs immediate attention to contact 911. NIESHA Pickens and KENNY provided the phone number to transport services that will provide patient transportation to doctor appointment. Patient is willing to go home with sister Azul. Patient understands that she will be the one caring for his needs. NETWORK SYSTEMS ADMINISTRATOR had spoken to patient bedside nurse and Dr. Mae regarding patient assessment. NETWORK SYSTEMS ADMINISTRATOR informed them that patient is not having any suicidal/homicidal or auditory/visual hallucinations. NIESHA set up appointment for [facility] with therapist on 04/11/2025 @ 10 and transport at 9:20 AM. NIESHA reviewed the case with NIESHA Martinez who agreed with the safety plan. NETWORK SYSTEMS ADMINISTRATOR provided resources and appointment to patient. NIESHA and KENNY Guidry spoke with patient bedside nurse and they will discharging patient. NIESHA Pickens also informed ALFREDITO Blackburn of the safety plan and appointments.
--- NOTE | 2025-03-27 16:13 | PC.SS ---
RN PEDIATRIC ICU provided patient's discharge disposition to APS staff
== END 2025-03-23 13:30 | disposition home or self-care (01) | DRG 194 ==
LOC: SERX 23:26 → SERHOLD 03-16 00:15 → S2NX 03-16 14:09
PROVIDERS: Internal Medicine; Internal Medicine Cardiovascular Disease; Internal Medicine Infectious Disease; Physician Assistant; Specialist; Admitting Provider Student in an Organized Health Care Education/Training Program; Emergency Provider Emergency Medicine; Visit Provider Student in an Organized Health Care Education/Training Program
PROC: 0DB48ZX Excision of Esophagogastric Junction, Via Natural or Artificial Opening Endoscopic, Diagnostic (ICD-10-PCS; CPT 43239; principal; 2025-03-16 18:00)
DX: I13.0 Hypertensive heart and chronic kidney disease with heart failure and stage 1 through stage 4 chronic kidney disease, or unspecified chronic kidney disease (principal); E66.01 Morbid (severe) obesity due to excess calories; Z68.41 Body mass index [BMI] 40.0-44.9, adult; Z95.0 Presence of cardiac pacemaker; E78.5 Hyperlipidemia, unspecified; I48.91 Unspecified atrial fibrillation; I21.A1 Myocardial infarction type 2; E87.1 Hypo-osmolality and hyponatremia; I16.1 Hypertensive emergency; K25.4 Chronic or unspecified gastric ulcer with hemorrhage; I50.23 Acute on chronic systolic (congestive) heart failure; E87.8 Other disorders of electrolyte and fluid balance, not elsewhere classified; N39.0 Urinary tract infection, site not specified; K22.11 Ulcer of esophagus with bleeding; N17.9 Acute kidney failure, unspecified; N18.9 Chronic kidney disease, unspecified; K29.71 Gastritis, unspecified, with bleeding; D50.0 Iron deficiency anemia secondary to blood loss (chronic); I44.2 Atrioventricular block, complete; I08.1 Rheumatic disorders of both mitral and tricuspid valves; R45.851 Suicidal ideations; K26.4 Chronic or unspecified duodenal ulcer with hemorrhage; E11.22 Type 2 diabetes mellitus with diabetic chronic kidney disease; J96.01 Acute respiratory failure with hypoxia; E87.20 Acidosis, unspecified; I42.0 Dilated cardiomyopathy; D63.1 Anemia in chronic kidney disease; Z79.01 Long term (current) use of anticoagulants; Z79.899 Other long term (current) drug therapy; Z79.82 Long term (current) use of aspirin; Z86.73 Personal history of transient ischemic attack (TIA), and cerebral infarction without residual deficits
CPT/HCPCS: 36415; 51702; 71045; 76705; 80048; 80053; 80061; 80069; 80307; 81001; 82140; 82270; 82728; 83036; 83540; 83550; 83605; 83690; 83735; 83880; 84100; 84443; 84484; 85025; 86703; 86803; 87040; 87077; 87081; 87086; 87186; 87502; 87811; 93306; 94640; 96127; 96372; 97162; 99283; A4314; A4649; A9270; J0696; J1100; J1200; J1938; J2250; J2470; J3010; J3411; J3475; J3480; J3490; J7030